=== PATIENT | male | born 1945 | race Caucasian/White ===

== ENCOUNTER 2017-05-18 16:09 | Inpatient (IN) | payer MEDICARE, OTHER ==
[~2017-05-18] VITALS: Ht 177.8 cm; Wt 178.0 kg
[2017-05-18 16:35] VITALS: BP 141/67; PULSE 129; RESP 18; TEMP 98.4; O2SAT 96
[2017-05-18 17:34] VITALS: BP 138/70; PULSE 119; RESP 20; O2SAT 93
[2017-05-18] MEDS ORDERED: SODIUM CHLOR 0.9% 1000 ML INJ 1,000 ML IV SCH (18:11)
[2017-05-18] MEDS ORDERED: CEPH-459 PO (18:39)
[2017-05-18 18:40] LABS: HEMATOCRIT 38.5 % (39.0-51.0); HEMO FLAGS DIFF FINAL; MEAN CELL VOLUME 91.6 FL (80.0-100.0); MEAN CORPUSCULAR HEMOGLOBIN 30.7 PG (27.0-34.0); MEAN CORPUSCULAR HGB CONC 33.5 % (32.0-36.0); PLATELET COUNT 189 TH/MM3 (150-450); RED CELL DISTRIBUTION WIDTH 14.6 % (11.6-17.2); WHITE BLOOD COUNT 12.6 TH/MM3 (4.0-11.0)
--- NOTE | 2017-05-18 18:40 | PD ---
HPI Chief Complaint: General Weakness Time Seen by Provider: 18:00 Travel History International Travel<30 days: No Contact w/Intl Traveler<30days: No Traveled to known affect area: No History of Present Illness HPI 72-year-old male came to the emergency room with history of fall at 1 AM this morning. Patient says he was to the bathroom with his walker when it caught in the rug and he fell forward. He hit his forehead and had a laceration.. Patient refuses any loss of consciousness. His son saw him this morning and was concerned and brought him to the emergency room. Patient is fully awake and answering questions appropriately he's not in any severe pain he said. [facility] Past Medical History Narrative Medical List of his past medical, surgical, social and family history is reviewed from the nursing note. Medical History: Denies Significant Hx Tetanus Vaccination: Unknown Influenza Vaccination: No (UNKNOWN ) Past Surgical History Surgical History: No Previous Surgery Social History Alcohol Use: No Tobacco Use: Yes (PT STATES HE SMOKES A PIPE) Substance Use: No Allergies-Medications (Allergen,Severity, Reaction): Coded Allergies: No Known Allergies (Unverified , 05/18/17) Comments No known drug allergies Reported Meds & Prescriptions Reported Meds & Active Scripts Active Narrative Medication List of his home medications reviewed from the nursing note. Review of Systems Except as stated in HPI: all other systems reviewed are Neg Physical Exam Narrative GENERAL: Awake, alert, elderly, no obvious distress SKIN: Focused skin assessment warm/dry. 2.5 cm laceration all over the medial aspect of his left eyebrow. HEAD: Atraumatic. Normocephalic. EYES: Pupils equal and round. No scleral icterus. No injection or drainage. Left periorbital ecchymosis ENT: No nasal bleeding or discharge. Mucous membranes pink and moist. NECK: Trachea midline. No JVD. CARDIOVASCULAR: Regular rate and rhythm. No murmur appreciated. RESPIRATORY: No accessory muscle use. Clear to auscultation. Breath sounds equal bilaterally. GASTROINTESTINAL: Abdomen soft, non-tender, nondistended. Hepatic and splenic margins not palpable. MUSCULOSKELETAL: No obvious deformities. No clubbing. No cyanosis. No edema. NEUROLOGICAL: Awake and alert. No obvious cranial nerve deficits. Motor grossly within normal limits. Normal speech. PSYCHIATRIC: Appropriate mood and affect; insight and judgment normal. Data Data Last Documented VS Vital Signs Date Time Temp Pulse Resp B/P Pulse Ox O2 Delivery O2 Flow Rate FiO2 05/18/17 18:56 108 24 151/68 97 Room Air 05/18/17 16:35 98.4 Orders Electrocardiogram (05/18/17 18:11) Complete Blood Count With Diff (05/18/17 18:11) Comprehensive Metabolic Panel (05/18/17 18:11) Creatine Kinase (Cpk) (05/18/17 18:11) Ckmb (Isoenzyme) Profile (05/18/17 18:11) Troponin I (05/18/17 18:11) Urinalysis - C+S If Indicated (05/18/17 18:11) Magnesium (Mg) (05/18/17 18:11) Thyroid Stimulating Hormone (05/18/17 18:11) Chest, Single Ap (05/18/17 18:11) Ct Brain W/O Iv Contrast(Rout) (05/18/17 18:11) Iv Access Insert/Monitor (05/18/17 18:11) Ecg Monitoring (05/18/17 18:11) Oximetry (05/18/17 18:11) Drug Screen, Random Urine (05/18/17 18:11) Alcohol (Ethanol) (05/18/17 18:11) Sodium Chlor 0.9% 1000 Ml Inj (Ns 1000 M (05/18/17 18:11) Lactic Acid (05/18/17 18:57) CKMB (05/18/17 17:50) CKMB% (05/18/17 17:50) Ceftriaxone Inj (Rocephin Inj) (05/18/17 19:45) Azithromycin Inj (Zithromax Inj) (05/18/17 19:45) Vital Signs (Adult) Q4H (05/18/17 20:25) Neuro Checks Q4H (05/18/17 20:25) Activity Oob With Assistance (05/18/17 20:25) Blurb Writer / Telemetry .CONTINUOUS (05/18/17 20:25) Sodium Chloride 0.9% Flush (Ns Flush) (05/18/17 20:30) Sodium Chloride 0.9% Flush (Ns Flush) (05/18/17 21:00) Complete Blood Count With Diff (05/19/17 06:00) Creatine Kinase (Cpk) (05/18/17 23:50) Creatine Kinase (Cpk) (05/19/17 05:50) Troponin I (05/18/17 23:50) Troponin I (05/19/17 05:50) Pt Request For Service (05/18/17 20:25) Case Management Consult (05/18/17 20:25) Naloxone Inj (Narcan Inj) (05/18/17 20:30) Us Carotid Arteries Comp Bilat (05/18/17 ) Ct Pulmonary Angiogram (05/18/17 ) Admit Order (Ed Use Only) (05/18/17 20:28) Echo 2d Comp With Doppler (05/19/17 ) Labs Laboratory Tests Test 05/18/17 05/18/17 17:50 19:15 White Blood Count 12.6 TH/MM3 Red Blood Count 4.20 MIL/MM3 Hemoglobin 12.9 GM/DL Hematocrit 38.5 % Mean Corpuscular Volume 91.6 FL Mean Corpuscular Hemoglobin 30.7 PG Mean Corpuscular Hemoglobin 33.5 % Concent Red Cell Distribution Width 14.6 % Platelet Count 189 TH/MM3 Mean Platelet Volume 9.7 FL Neutrophils (%) (Auto) 85.3 % Lymphocytes (%) (Auto) 6.4 % Monocytes (%) (Auto) 7.3 % Eosinophils (%) (Auto) 0.1 % Basophils (%) (Auto) 0.9 % Neutrophils # (Auto) 10.8 TH/MM3 Lymphocytes # (Auto) 0.8 TH/MM3 Monocytes # (Auto) 0.9 TH/MM3 Eosinophils # (Auto) 0.0 TH/MM3 Basophils # (Auto) 0.1 TH/MM3 CBC Comment DIFF FINAL Differential Comment Sodium Level 137 MEQ/L Potassium Level 4.3 MEQ/L Chloride Level 105 MEQ/L Carbon Dioxide Level 21.5 MEQ/L Anion Gap 11 MEQ/L Blood Urea Nitrogen 14 MG/DL Creatinine 1.29 MG/DL Estimat Glomerular Filtration 54 ML/MIN Rate Random Glucose 150 MG/DL Calcium Level 8.0 MG/DL Magnesium Level 1.8 MG/DL Total Bilirubin 0.6 MG/DL Aspartate Amino Transf 23 U/L (AST/SGOT) Alanine Aminotransferase 11 U/L (ALT/SGPT) Alkaline Phosphatase 66 U/L Total Creatine Kinase 207 U/L Creatine Kinase MB 0.6 NG/ML Troponin I 0.06 NG/ML Total Protein 6.6 GM/DL Albumin 2.7 GM/DL Thyroid Stimulating Hormone 1.050 uIU/ML 3rd Gen Ethyl Alcohol Level LESS THAN 3 MG/DL Lactic Acid Level 1.1 mmol/L MDM Medical Decision Making Medical Screen Exam Complete: Yes Emergency Medical Condition: Yes Medical Record Reviewed: Yes Differential Diagnosis Head injury, facial laceration Narrative Course 6:37 PM patient told me that he is updated for tetanus. My PA suture the facial laceration. Patient was given by mouth Keflex. Head CT is negative. I will discharge him home. Procedures EKG Prior to Arrival: No Diagnosis Primary Impression: Head injury Qualified Code: S09.90XA - Head injury, initial encounter Additional Impression: Facial laceration Qualified Code: S01.81XA - Facial laceration, initial encounter Referrals: Primary Care Physician Additional Instructions: Please return to the ER if the condition worsens or any other new concerns. Otherwise return to the ER in 7-10 days to get the sutures taken out. He can also go to your primary care doctor to have those taken out. Take the medication as per the prescription direction. Keep the wound clean and dry for next 48 hours. Med/Other Pt SpecificInfo: Prescription(s) given Disposition: 01 DISCHARGE HOME Condition: Stable Dot Osorio MD May 18, 2017 18:39
[2017-05-18 18:41] LABS: AUTOMATED NEUTROPHIL # 10.8 TH/MM3 (1.8-7.7); BASOPHIL # 0.1 TH/MM3 (0-0.2); BASOPHIL % 0.9 % (0.0-2.0); EOSINOPHIL % 0.1 % (0.0-4.0); LYMPH % 6.4 % (9.0-44.0); LYMPHOCYTE # 0.8 TH/MM3 (1.0-4.8); MONO % 7.3 % (0.0-8.0); NEUT % 85.3 % (16.0-70.0)
--- NOTE | 2017-05-18 18:51 | RADRPT ---
EXAM DATE/TIME: 05/18/2017 18:37 [facility] COMPARISON: No previous studies available for comparison. INDICATIONS : Patient fainted and hit head. RADIATION DOSE: 56.77 CTDIvol (mGy) MEDICAL HISTORY : None SURGICAL HISTORY : Non-responsive. ENCOUNTER: Initial ACUITY: 1 day PAIN SCALE: 1/10 LOCATION: Bilateral cranial TECHNIQUE: Multiple contiguous axial images were obtained of the head. Using automated exposure control and adj ustment of the mA and/or kV according to patient size, radiation dose was kept as low as reasonably a chievable to obtain optimal diagnostic quality images. DICOM format image data is available electro nically for review and comparison. FINDINGS: Remote right cerebellar lacunar infarct. There is patchy hypodensity in the periventricular white mat ter and basal ganglia most consistent with chronic microvascular ischemic disease. There is no eviden ce of acute intracranial hemorrhage, mass or acute infarct. No fractures. CONCLUSION: No acute disease. Enrrique Summers MD on May 18, 2017 at 18:49 Board Certified Radiologist. This report was verified electronically.
[2017-05-18 18:56] VITALS: BP 151/68; PULSE 108; RESP 24; O2SAT 97
[2017-05-18 18:59] LABS: ALT (GPT) 11 U/L (12-78)
[2017-05-18 19:04] LABS: ANION GAP 11 MEQ/L (5-15)
--- NOTE | 2017-05-18 19:07 | RADRPT ---
EXAM DATE/TIME: 05/18/2017 18:47 [facility] COMPARISON: No previous studies available for comparison. INDICATIONS : Chest pain, possible heat stroke. MEDICAL HISTORY : None. SURGICAL HISTORY : None. ENCOUNTER: Initial ACUITY: 1 day PAIN SCORE: Non-responsive. LOCATION: Bilateral chest FINDINGS: Cardiomegaly. Left lung is clear. There is abnormal opacity overlying the right lower lobe suspect fo r consolidation. CONCLUSION: Right lung base consolidation, mass felt less likely. Followup recommended after appropriate clinical therapy. Enrrique Summers MD on May 18, 2017 at 19:05 Board Certified Radiologist. This report was verified electronically.
[2017-05-18 19:20] LABS: ALKALINE PHOSPHATASE 66 U/L (45-117); AST (GOT) 23 U/L (15-37); BICARBONATE 21.5 MEQ/L (21.0-32.0); BLOOD UREA NITROGEN 14 MG/DL (7-18); CHLORIDE 105 MEQ/L (98-107); CREATINE KINASE 207 U/L (39-308); GLOMERULAR FILTRATION RATE 54 ML/MIN (>89); MAGNESIUM 1.8 MG/DL (1.5-2.5); POTASSIUM 4.3 MEQ/L (3.5-5.1); SODIUM (NA) 137 MEQ/L (136-145); TOTAL BILIRUBIN ADULT 0.6 MG/DL (0.2-1.0)
--- NOTE | 2017-05-18 19:29 | PD ---
HPI Chief Complaint: General Weakness Time Seen by Provider: 19:25 Travel History International Travel<30 days: No Contact w/Intl Traveler<30days: No Traveled to known affect area: No History of Present Illness HPI 72-year-old male that presents to the ED for evaluation of possible heat stroke. Patient was brought here by ambulance. Patient is not quite sure what happened but per patient he feels like his right leg had a muscle spasm and he felt. Per patient he doesn't remember what happened but he was woken up by a bystander. Ambulance showed up and patient was sitting on a pool of his sweat. Patient denies any chest pain or shortness of breath. He denies any pain at all at this time. He apparently was altered at the time but not anymore. He answers some questions about properly. He is deaf. He does not remember being on the floor. He denies any extremity is activity today. No abdominal pain. No nausea or vomiting. No bowel movement or urinary issues. At this time he denies any pain of any kind. History is somewhat limited because patient does appear to be somewhat of a poor historian. He denies any medical issues. [facility] Past Medical History Medical History: Denies Significant Hx Tetanus Vaccination: Unknown Influenza Vaccination: No (UNKNOWN ) Past Surgical History Surgical History: No Previous Surgery Social History Alcohol Use: No Tobacco Use: Yes (PT STATES HE SMOKES A PIPE) Substance Use: No Allergies-Medications (Allergen,Severity, Reaction): Coded Allergies: No Known Allergies (Unverified , 05/18/17) Reported Meds & Prescriptions Reported Meds & Active Scripts Active Keflex (Cephalexin) 250 Mg Cap 250 Mg PO TID Review of Systems ROS Limitations: Poor Historian Except as stated in HPI: all other systems reviewed are Neg Physical Exam Exam Limitations: Poor Historian Narrative GENERAL: SKIN: Warm and dry. HEAD: Atraumatic. Normocephalic. EYES: Pupils equal and round. No scleral icterus. No injection or drainage. ENT: No nasal bleeding or discharge. Mucous membranes pink and moist. NECK: Trachea midline. No JVD. CARDIOVASCULAR: Regular rate and rhythm. No murmurs, S3, S4. RESPIRATORY: No accessory muscle use. Clear to auscultation. Breath sounds equal bilaterally. GASTROINTESTINAL: Abdomen soft, non-tender, nondistended. Hepatic and splenic margins not palpable. MUSCULOSKELETAL: Extremities without clubbing, cyanosis, or edema. No obvious deformities. Full range of motion of the upper and lower extremities bilaterally. 2+ pulses bilaterally. NEUROLOGICAL: Awake and alert and oriented 4. No obvious cranial nerve deficits. Motor grossly within normal limits. Five out of 5 muscle strength in the arms and legs. Normal speech. PSYCHIATRIC: Appropriate mood and affect; insight and judgment normal. Data Data Last Documented VS Vital Signs Date Time Temp Pulse Resp B/P Pulse Ox O2 Delivery O2 Flow Rate FiO2 05/18/17 18:56 108 24 151/68 97 Room Air 05/18/17 16:35 98.4 Orders Electrocardiogram (05/18/17 18:11) Complete Blood Count With Diff (05/18/17 18:11) Comprehensive Metabolic Panel (05/18/17 18:11) Creatine Kinase (Cpk) (05/18/17 18:11) Ckmb (Isoenzyme) Profile (05/18/17 18:11) Troponin I (05/18/17 18:11) Urinalysis - C+S If Indicated (05/18/17 18:11) Magnesium (Mg) (05/18/17 18:11) Thyroid Stimulating Hormone (05/18/17 18:11) Chest, Single Ap (05/18/17 18:11) Ct Brain W/O Iv Contrast(Rout) (05/18/17 18:11) Iv Access Insert/Monitor (05/18/17 18:11) Ecg Monitoring (05/18/17 18:11) Oximetry (05/18/17 18:11) Drug Screen, Random Urine (05/18/17 18:11) Alcohol (Ethanol) (05/18/17 18:11) Sodium Chlor 0.9% 1000 Ml Inj (Ns 1000 M (05/18/17 18:11) Lactic Acid (05/18/17 18:57) CKMB (05/18/17 17:50) CKMB% (05/18/17 17:50) Ceftriaxone Inj (Rocephin Inj) (05/18/17 19:45) Azithromycin Inj (Zithromax Inj) (05/18/17 19:45) Labs Laboratory Tests Test 05/18/17 05/18/17 17:50 19:15 White Blood Count 12.6 TH/MM3 Red Blood Count 4.20 MIL/MM3 Hemoglobin 12.9 GM/DL Hematocrit 38.5 % Mean Corpuscular Volume 91.6 FL Mean Corpuscular Hemoglobin 30.7 PG Mean Corpuscular Hemoglobin 33.5 % Concent Red Cell Distribution Width 14.6 % Platelet Count 189 TH/MM3 Mean Platelet Volume 9.7 FL Neutrophils (%) (Auto) 85.3 % Lymphocytes (%) (Auto) 6.4 % Monocytes (%) (Auto) 7.3 % Eosinophils (%) (Auto) 0.1 % Basophils (%) (Auto) 0.9 % Neutrophils # (Auto) 10.8 TH/MM3 Lymphocytes # (Auto) 0.8 TH/MM3 Monocytes # (Auto) 0.9 TH/MM3 Eosinophils # (Auto) 0.0 TH/MM3 Basophils # (Auto) 0.1 TH/MM3 CBC Comment DIFF FINAL Differential Comment Sodium Level 137 MEQ/L Potassium Level 4.3 MEQ/L Chloride Level 105 MEQ/L Carbon Dioxide Level 21.5 MEQ/L Anion Gap 11 MEQ/L Blood Urea Nitrogen 14 MG/DL Creatinine 1.29 MG/DL Estimat Glomerular Filtration 54 ML/MIN Rate Random Glucose 150 MG/DL Calcium Level 8.0 MG/DL Magnesium Level 1.8 MG/DL Total Bilirubin 0.6 MG/DL Aspartate Amino Transf 23 U/L (AST/SGOT) Alanine Aminotransferase 11 U/L (ALT/SGPT) Alkaline Phosphatase 66 U/L Total Creatine Kinase 207 U/L Creatine Kinase MB 0.6 NG/ML Troponin I 0.06 NG/ML Total Protein 6.6 GM/DL Albumin 2.7 GM/DL Thyroid Stimulating Hormone 1.050 uIU/ML 3rd Gen Ethyl Alcohol Level LESS THAN 3 MG/DL Lactic Acid Level 1.1 mmol/L MDM Medical Decision Making Medical Screen Exam Complete: Yes Emergency Medical Condition: Yes Medical Record Reviewed: Yes Interpretation(s) CBC & BMP Diagram 05/18/17 17:50 LFTS WNL UA negative Lipase WNL Last Impressions Head CT 05/18/171810 Signed Impressions: Service Date/Time: Thursday, May 18, 2017 18:37 - CONCLUSION: No acute disease. Enrrique Summers MD Chest X-Ray 05/18/171810 Signed Impressions: Service Date/Time: Thursday, May 18, 2017 18:47 - CONCLUSION: Right lung base consolidation, mass felt less likely. Followup recommended after appropriate clinical therapy. Enrrique Summers MD Differential Diagnosis Altered mental status versus dehydration versus heat stroke versus pneumonia versus sepsis versus normal exam Narrative Course 72-year-old male that presents to the ED for evaluation of possible heat stroke. Patient was properly examined and was found to have signs and symptoms very consistent what appears to be dehydration and altered mental status. Labs and imaging were done. Patient at this time appears to be less alter and he seems to answer some questions a properly but he does appear to be somewhat of a poor historian. Questionable how long He was "out". At this time I recommend labs and imaging. Patient agrees with this. Patient was given 2 L of fluid before being seen by me. Labs and imaging ordered and showed pneumonia , new onset a fib, leukocytosis and positive troponin. Case was discussed in my attending Dr. Echeverria agrees to admission. Patient will be admitted for further evaluation of alteration as well as pneumonia and positive troponin and new onset A. fib. Case discussed with Dr. Nathan who agrees to admission. Sepsis Criteria SIRS Criteria (2 or more): Heart rate over 90, WBC > 51994, < 4000 or > 10% bands Sepsis Criteria (SIRS+source): Infect source susp/known Criteria Outcome: Meets sepsis criteria Diagnosis Primary Impression: Altered mental status Qualified Code: R41.82 - Altered mental status, unspecified altered mental status type Additional Impressions: Pneumonia Qualified Code: J18.1 - Pneumonia of right lower lobe due to infectious organism Troponin level elevated Atrial fibrillation Qualified Code: I48.91 - Atrial fibrillation, unspecified type Sepsis Qualified Code: A41.9 - Sepsis, due to unspecified organism Admitting Information Admitting Physician Requests: Admit Referrals: Primary Care Physician Scripts Cephalexin (Keflex)250 Mg [id number] Mg PO TID #7 CAP Ref 0 Prov:Dot Osorio MD 05/18/17 Loyd Olvera May 18, 2017 19:28
[2017-05-18 19:33] LABS: CKMB 0.6 NG/ML (0.5-3.6)
[2017-05-18] MEDS ORDERED: AZITHROMYCIN INJ 500 MG in SODIUM CHLOR 0.9% 250 ML INJ 250 ML IV ONE (19:45)
[2017-05-18] MEDS ORDERED: cefTRIAXone INJ 1,000 MG in SODIUM CHLORIDE 0.9% INJ 100 ML IV ONE (19:45)
[2017-05-18] MEDS ORDERED: NALOXONE HCL 0.4 MG/ML AMP IV PRN (20:30)
[2017-05-18] MEDS ORDERED: SODIUM CHLORIDE 0.9% FLUSH 10 ML FLUSH IV FLUSH PRN (20:30)
--- NOTE | 2017-05-18 21:25 | RADRPT ---
EXAM DATE/TIME: 05/18/2017 20:44 [facility] COMPARISON: No previous studies available for comparison. INDICATIONS : Syncope. MEDICAL HISTORY : Syncope. Smoker. SURGICAL HISTORY : None. ENCOUNTER: Initial ACUITY: 1 day PAIN SCORE: 0/10 LOCATION: Bilateral neck PEAK SYSTOLIC VELOCITIES (cm/sec): ICA/CCA RATIO: Right: 1.0 Left: 0.9 ICA: Right: 95.2 Left: 82.8 CCA: Right: 90.8 Left: 96.3 ECA: Right: 116.3 Left: 134.9 VERTEBRAL: Right: 47.8 antegrade Left: 42.7 antegrade Elevated flow velocities and ICA/CCA ratios have been found to correlate with increased degrees of vessel stenosis, calculated as percentage of diameter relative to a normal segment of distal ICA/CCA FINDINGS: RIGHT CAROTID: No significant stenosis is visualized. The waveforms are within normal limits. LEFT CAROTID: No significant stenosis is visualized. The waveforms are within normal limits. VERTEBRAL ARTERIES: Antegrade flow is seen in both vertebral arteries. MISCELLANEOUS: None. CONCLUSION: 1. No evidence for hemodynamically significant stenosis. Minimal plaque deposition left greater than right. Enrrique Summers MD on May 18, 2017 at 21:24 Board Certified Radiologist. This report was verified electronically.
[2017-05-18 21:29] LABS: BLOOD, URINE SMALL (NEG); COMMENT (UR) CULT NOT INDICATED; CULTURE IF INDICATED CULT NOT INDICATED; GLUCOSE,URINE NEG (NEG); KETONE, URINE NEG (NEG); NITRITE,URINE NEG (NEG); SQUAMOUS EPITHELIAL CELL URINE <1 /hpf (0-5); URINE COLOR YELLOW (YELLW/STRAW)
[2017-05-18 21:37] LABS: AMPHETAMINE, URINE NEG (NEG); BARBITURATES, URINE NEG (NEG); COCAINE, URINE NEG (NEG)
[2017-05-18] MEDS ORDERED: IOHEXOL 350 MG/ML 10 ML VIAL (for RAD DIAG) IV ONE (21:45)
--- NOTE | 2017-05-18 21:59 | RADRPT ---
EXAM DATE/TIME: 05/18/2017 21:35 [facility] COMPARISON: CHEST SINGLE AP, May 18, 2017, 18:47. INDICATIONS : Shortness of breath. IV CONTRAST: 75 cc Omnipaque 350 (iohexol) IV RADIATION DOSE: 39.20 CTDIvol (mGy) MEDICAL HISTORY : None SURGICAL HISTORY : None. ENCOUNTER: Initial ACUITY: 1 day PAIN SCALE: 0/10 LOCATION: Bilateral chest TECHNIQUE: Volumetric scanning of the chest was performed using a pulmonary embolism protocol MIP images were re constructed. Using automated exposure control and adjustment of the mA and/or kV according to patien t size, radiation dose was kept as low as reasonably achievable to obtain optimal diagnostic quality images. DICOM format image data is available electronically for review and comparison. Follow-up recommendations for incidentally detected pulmonary nodules are based at a minimum on nodul e size and patient risk factors according to Fleischner Society Guidelines. FINDINGS: There is respiratory motion artifact. Right lower lobe consolidation is identified. Left lung is stan r. There is right hilar adenopathy measuring 1.3 x 2.5 cm in AP and transverse dimension. There is a hypodense mass at the upper pole of the right kidney measured 4.4 cm and 2 Hounsfield units character istic of his chest. No evidence of pulmonary embolus. Coronary artery calcification. There are degene rative changes of the spine. CONCLUSION: 1. Right lower lobe pneumonia with right hilar adenopathy. 2. Right renal cyst. 3. Coronary calcification. 4. No evidence for pulmonary embolus Enrrique Summers MD on May 18, 2017 at 21:55 Board Certified Radiologist. This report was verified electronically.
--- NOTE | 2017-05-18 22:14 | HHI.HP ---
[facility] No Primary Care Physician Admission Diagnosis altered mental status, CAP, a. fib, positive trop Diagnoses: Chief Complaint: I don't know what happened Travel History International Travel<30 Days: No Contact w/Intl Traveler <30 Da: No Traveled to Known Affected Are: No History of Present Illness History from patient, ER PA communication, and review of medical records. Patient reported that he wants to [place] today and he took a bus back home and as he got out of the bus and walked on the street, he somehow fell and passed out. He denies any premonitory symptoms prior to the event. Specifically, he denies any chest pain/palpitations/shortness of breath/dizziness/focal weakness/visual disturbance. He stated that he fell onto his buttock. He stated he may have passed out a few seconds he. He is not sure. However he does note that he had severe pain in his left hip area which was making him hard to get up. Therefore a bystander saw him and called 911. Patient still complains about pain in his this left hip. Apart from that, he denies any pain anywhere. On further questioning, patient also denies any recent fevers/nausea/vomiting/ diarrhea/urinary burning or pain on urination. He denies any hematemesis/hematochezia/melena/hematuria. Denies any blood in his stool or urine. Patient denies any previous medical history. He takes only one medicine for which he thinks is probably Excedrin [id number] which is 650 mg at [facility] for arthritis. He denies any previous surgical history. He states he lives alone. Usually does not use a walker to walk. No longer driving. Patient is quite obese as well. In the emergency room, patient's workup revealed leukocytosis with left shift, chest x-ray evidence of pneumonia, mild troponin elevation of 0.06. Again, patient denies any cough or sputum production. EMS report also stated that patient had fever of 102. Patient's EKG was also read as A. fib with heart rate around 108. However on review of his EKG, P waves are evident. Thus sinus tachycardia. ER triage note states that EMS was reporting patient is altered and laying in a pool of his own sweat when they arrived. He was given 1 L normal saline bolus by EMS. He was AAO 3 upon arrival to ER per triage notes. Triage notes also states that patient was complaining of leg cramp and that his leg giving out prior to the fall. Review of Systems Except as stated in HPI: all other systems reviewed are Neg Past Family Social History Past Medical History None part from arthritis per patient none apart from arthritis per patient Past Surgical History None per patient Reported Medications None apart from [id number] aspirin or Excedrin per patient Allergies: Coded Allergies: No Known Allergies (Unverified , 05/18/17) Family History Denies family history of any medical issues. He stated they are all at this time and that they from old age Social History still smokes a pipe but quit cigarettes about 10-15yrs ago used to drink etoh heavily after work - but quit 6 yrs ago ' no drugs lives by himself does not use a walker at home no relatives around Physical Exam Vital Signs Vital Signs Date Time Temp Pulse Resp B/P Pulse Ox O2 Delivery O2 Flow Rate FiO2 05/18/17 18:56 108 24 151/68 97 Room Air 05/18/17 17:34 119 20 138/70 93 Room Air 05/18/17 17:00 129 18 96 Room Air 05/18/17 16:35 98.4 129 18 141/67 96 Physical Exam GENERAL: This is a well-nourished, well-developed patient, in no apparent distress. Morbidly obese. Somewhat disheveled with dirt on bilateral feet SKIN: No obvious skin ulcerations or decubiti. HEAD: Atraumatic. Normocephalic. No temporal or scalp tenderness. EYE No scleral icterus. No injection or drainage. ENT: Nose without bleeding, purulent drainage or septal hematoma. Airway patent. Tongue rolling. Patient denies being on any antipsychotics. NECK: Trachea midline. No JVD Supple, nontender, no meningeal signs. CARDIOVASCULAR: Regular rate and rhythm without murmurs, gallops, or rubs. RESPIRATORY: Audible mild expiratory wheezing without stethoscope. GASTROINTESTINAL: Abdomen soft, non-tender, nondistended. No guarding. MUSCULOSKELETAL: Extremities without clubbing, cyanosis, or edema. Left lower extremity with difficulty moving and pain on palpation at left hip and pelvis area. No calf tenderness. NEUROLOGICAL: Awake and alert. Motor and sensory grossly within normal limits apart from pain at left hip. Normal speech. Laboratory Laboratory Tests Test 05/18/17 05/18/17 05/18/17 17:50 19:15 21:16 White Blood Count 12.6 Red Blood Count 4.20 Hemoglobin 12.9 Hematocrit 38.5 Mean Corpuscular Volume 91.6 Mean Corpuscular Hemoglobin 30.7 Mean Corpuscular Hemoglobin 33.5 Concent Red Cell Distribution Width 14.6 Platelet Count 189 Mean Platelet Volume 9.7 Neutrophils (%) (Auto) 85.3 Lymphocytes (%) (Auto) 6.4 Monocytes (%) (Auto) 7.3 Eosinophils (%) (Auto) 0.1 Basophils (%) (Auto) 0.9 Neutrophils # (Auto) 10.8 Lymphocytes # (Auto) 0.8 Monocytes # (Auto) 0.9 Eosinophils # (Auto) 0.0 Basophils # (Auto) 0.1 CBC Comment DIFF FINAL Differential Comment Sodium Level 137 Potassium Level 4.3 Chloride Level 105 Carbon Dioxide Level 21.5 Anion Gap 11 Blood Urea Nitrogen 14 Creatinine 1.29 Estimat Glomerular Filtration 54 Rate Random Glucose 150 Calcium Level 8.0 Magnesium Level 1.8 Total Bilirubin 0.6 Aspartate Amino Transf 23 (AST/SGOT) Alanine Aminotransferase 11 (ALT/SGPT) Alkaline Phosphatase 66 Total Creatine Kinase 207 Creatine Kinase MB 0.6 Troponin I 0.06 Total Protein 6.6 Albumin 2.7 Thyroid Stimulating Hormone 1.050 3rd Gen Ethyl Alcohol Level LESS THAN 3 Lactic Acid Level 1.1 Urine Color YELLOW Urine Turbidity CLEAR Urine pH 6.0 Urine Specific [place] 1.021 Urine Protein 30 Urine Glucose (UA) NEG Urine Ketones NEG Urine Occult Blood SMALL Urine Nitrite NEG Urine Bilirubin NEG Urine Urobilinogen LESS THAN 2.0 Urine Leukocyte Esterase NEG Urine RBC LESS THAN 1 Urine WBC 1 Urine Squamous Epithelial <1 Cells Microscopic Urinalysis Comment CULT NOT INDICATED Urine Opiates Screen NEG Urine Barbiturates Screen NEG Urine Amphetamines Screen NEG Urine Benzodiazepines Screen NEG Urine Cocaine Screen NEG Urine Cannabinoids Screen NEG Result Diagram: 05/18/17 17505/18/17 175 Imaging Last [address] 05/18/17 1811 Signed Impressions: Service Date/Time: Thursday, May 18, 2017 18:37 - CONCLUSION: No acute disease. nErrique Summers MD Chest X-Ray 05/18/17 1811 Signed Impressions: Service Date/Time: Thursday, May 18, 2017 18:47 - CONCLUSION: Right lung base consolidation, mass felt less likely. Followup recommended after appropriate clinical therapy. Enrrique Summers MD Assessment and Plan Assessment and Plan Impression: Syncope and fall Left hip pain post fall Pneumoniaright lower lobe Sinus tachycardiasecondary to infection Mild elevated troponinetiology unclear. Patient denies chest pains or tightness. We'll trend and to rule out ACS. Most likely secondary to dehydration/nonspecific Leukocytosis with left shift Morbid obesity Prior history of tobacco abusewith expiratory wheezings on examlikely underlying COPD Plan: Patient received Rocephin and azithromycin in ER. Will continue that for now. Monitor for clinical response. Start patient on nebulizers when necessary. Echocardiogram in a.m. Telemetry monitoring. Carotid sono. Results noted. No hemodynamically significant stenosis. Chest x-ray does personally reviewed. No evidence of pneumothorax/pleural effusions. Right lower lobe infiltrate evident. Head CTpersonally reviewed. No evidence of acute infarct/mass/hemorrhage. CT pulmonary angiogram personally reviewed. No evidence of pulmonary embolism. Right lower lobe infiltrate with adenopathy. We'll obtain x-ray of left hip and pelvis to rule out fractures. Physical therapy consult in a.m. Case management consult. DVT prophylaxiswith Lovenox. GI prophylaxis on pantoprazole. Discussed Condition With patient, ER PA, nursing staff Isai Nathan MD May 18, 2017 22:14
[2017-05-18] MEDS ORDERED: RESP: IPRATROPIUM 0.5 MG/2.5 ML NEB NEB PRN (22:15)
[2017-05-18 22:24] VITALS: BP 132/72; PULSE 68; RESP 18; TEMP 98.1; O2SAT 97
--- NOTE | 2017-05-18 22:48 | RADRPT ---
EXAM DATE/TIME: 05/18/2017 22:39 [facility] COMPARISON: No previous studies available for comparison. INDICATIONS : Left hip pain after fall. MEDICAL HISTORY : None. SURGICAL HISTORY : None. ENCOUNTER: Initial ACUITY: 1 day PAIN SCORE: Non-responsive. LOCATION: Left hip. FINDINGS: There is contrast in the urinary bladder and distal ureters. No evidence for hip fracture. Bone densi ty is normal. CONCLUSION: No acute disease. Enrrique Summers MD on May 18, 2017 at 22:47 Board Certified Radiologist. This report was verified electronically.
[2017-05-18] MEDS: SODIUM CHLORIDE 0.9% FLUSH 10 ML FLUSH IV FLUSH SCH (22:57)
[2017-05-19] VITALS (11 sets, daily range): BP systolic 131–156; BP diastolic 72–80; PULSE 67–99; RESP 14–20; TEMP 97.9–98.5; O2SAT 97–99
[2017-05-19 06:44] LABS: BICARBONATE 21.3 MEQ/L (21.0-32.0); POTASSIUM 3.9 MEQ/L (3.5-5.1)
[2017-05-19 06:57] LABS: AUTOMATED NEUTROPHIL # 7.7 TH/MM3 (1.8-7.7); BASOPHIL # 0.1 TH/MM3 (0-0.2); BASOPHIL % 0.8 % (0.0-2.0); EOSINOPHIL # 0.1 TH/MM3 (0-0.4); EOSINOPHIL % 0.7 % (0.0-4.0); HEMATOCRIT 37.7 % (39.0-51.0); HEMO FLAGS DIFF FINAL; LYMPH % 14.9 % (9.0-44.0); LYMPHOCYTE # 1.6 TH/MM3 (1.0-4.8); MEAN CELL VOLUME 92.4 FL (80.0-100.0); MEAN CORPUSCULAR HEMOGLOBIN 31.6 PG (27.0-34.0); MEAN CORPUSCULAR HGB CONC 34.2 % (32.0-36.0); NEUT % 72.6 % (16.0-70.0); PLATELET COUNT 181 TH/MM3 (150-450); RED BLOOD COUNT 4.09 MIL/MM3 (4.50-5.90); RED CELL DISTRIBUTION WIDTH 14.9 % (11.6-17.2); WHITE BLOOD COUNT 10.7 TH/MM3 (4.0-11.0)
[2017-05-19] MEDS ORDERED: ACETAMINOPHEN 325 MG TAB PO PRN (07:30)
--- NOTE | 2017-05-19 08:54 | HHI.PR ---
Subjective Remarks Follow-up for syncope and fall. The patient is hard of hearing. He did pass out and fall yesterday, doesn't recall much about the episode. He states he has been feeling well lately. He denies any chest pain or shortness of breath. He denies any cough or recent illness. He denies any problems swallowing. He states he had some left hip pain after the fall, but that has resolved. He states he feels well at this time and is asking when he can go home. He does smoke a pipe. Objective Vitals Vital Signs Date Time Temp Pulse Resp B/P Pulse Ox O2 Delivery O2 Flow Rate FiO2 05/19/17 08:29 98.5 89 18 146/74 99 05/19/17 04:39 98.1 67 18 131/74 97 05/19/17 03:44 99 05/19/17 00:33 85 05/19/17 00:33 85 05/18/17 22:24 98.1 68 18 132/72 97 05/18/17 18:56 108 24 151/68 97 Room Air 05/18/17 17:34 119 20 138/70 93 Room Air 05/18/17 17:00 129 18 96 Room Air 05/18/17 16:35 98.4 129 18 141/67 96 Result Diagram: 05/19/17 0502 05/19/17 0502 Other Results Laboratory Tests Test 05/18/17 05/18/17 05/18/17 05/19/17 17:50 19:15 21:16 05:02 Magnesium Level 1.8 MG/DL Total Bilirubin 0.6 MG/DL Aspartate Amino Transf 23 U/L (AST/SGOT) Alanine Aminotransferase 11 U/L (ALT/SGPT) Alkaline Phosphatase 66 U/L Creatine Kinase MB 0.6 NG/ML Total Protein 6.6 GM/DL Albumin 2.7 GM/DL Thyroid Stimulating Hormone 1.050 uIU/ML 3rd Gen Ethyl Alcohol Level LESS THAN 3 MG/DL Lactic Acid Level 1.1 mmol/L Urine Color YELLOW Urine Turbidity CLEAR Urine pH 6.0 Urine Specific [place] 1.021 Urine Protein 30 mg/dL Urine Glucose (UA) NEG mg/dL Urine Ketones NEG mg/dL Urine Occult Blood SMALL Urine Nitrite NEG Urine Bilirubin NEG Urine Urobilinogen LESS THAN 2.0 MG/DL Urine Leukocyte Esterase NEG Urine RBC LESS THAN 1 /hpf Urine WBC 1 /hpf Urine Squamous Epithelial <1 /hpf Cells Microscopic Urinalysis Comment CULT NOT INDICATED Urine Opiates Screen NEG Urine Barbiturates Screen NEG Urine Amphetamines Screen NEG Urine Benzodiazepines Screen NEG Urine Cocaine Screen NEG Urine Cannabinoids Screen NEG White Blood Count 10.7 TH/MM3 Red Blood Count 4.09 MIL/MM3 Hemoglobin 12.9 GM/DL Hematocrit 37.7 % Mean Corpuscular Volume 92.4 FL Mean Corpuscular Hemoglobin 31.6 PG Mean Corpuscular Hemoglobin 34.2 % Concent Red Cell Distribution Width 14.9 % Platelet Count 181 TH/MM3 Mean Platelet Volume 9.0 FL Neutrophils (%) (Auto) 72.6 % Lymphocytes (%) (Auto) 14.9 % Monocytes (%) (Auto) 11.0 % Eosinophils (%) (Auto) 0.7 % Basophils (%) (Auto) 0.8 % Neutrophils # (Auto) 7.7 TH/MM3 Lymphocytes # (Auto) 1.6 TH/MM3 Monocytes # (Auto) 1.2 TH/MM3 Eosinophils # (Auto) 0.1 TH/MM3 Basophils # (Auto) 0.1 TH/MM3 CBC Comment DIFF FINAL Differential Comment Sodium Level 138 MEQ/L Potassium Level 3.9 MEQ/L Chloride Level 105 MEQ/L Carbon Dioxide Level 21.3 MEQ/L Anion Gap 12 MEQ/L Blood Urea Nitrogen 13 MG/DL Creatinine 1.03 MG/DL Estimat Glomerular Filtration 71 ML/MIN Rate Random Glucose 96 MG/DL Calcium Level 8.3 MG/DL Total Creatine Kinase 262 U/L Troponin I 0.06 NG/ML Imaging Last Impressions Head CT 05/18/171810 Signed Impressions: Service Date/Time: Thursday, May 18, 2017 18:37 - CONCLUSION: No acute disease. Enrrique Summers MD Chest X-Ray 05/18/171810 Signed Impressions: Service Date/Time: Thursday, May 18, 2017 18:47 - CONCLUSION: Right lung base consolidation, mass felt less likely. Followup recommended after appropriate clinical therapy. Enrrique Summers MD Hip and Pelvis X-Ray 05/18/17 0000 Signed Impressions: Service Date/Time: Thursday, May 18, 2017 22:39 - CONCLUSION: No acute disease. Enrrique Summers MD Carotid Artery Ultrasound 05/18/17 0000 Signed Impressions: Service Date/Time: Thursday, May 18, 2017 20:44 - CONCLUSION: 1. No evidence for hemodynamically significant stenosis. Minimal plaque deposition left greater than right. Enrrique Summers MD CT Angiography 05/18/17 0000 Signed Impressions: Service Date/Time: Thursday, May 18, 2017 21:35 - CONCLUSION: 1. Right lower lobe pneumonia with right hilar adenopathy. 2. Right renal cyst. 3. Coronary calcification. 4. No evidence for pulmonary embolus Enrrique Summers MD Objective Remarks GENERAL: Well-developed well-nourished morbidly obese. In no acute distress. Hard of hearing. SKIN: Warm and dry. No lesions noted. HEENT: Normocephalic. Pupils equal and round. Mucous membranes pink and moist. Large tongue. CARDIOVASCULAR: Regular rate and rhythm. No murmur appreciated. RESPIRATORY: No accessory muscle use. Slightly tachypneic. Clear to auscultation. No wheezing. GASTROINTESTINAL: Abdomen soft, non-tender, nondistended. Bowel sounds x4. MUSCULOSKELETAL: No obvious deformities. No clubbing or cyanosis. No edema. NEUROLOGICAL: Awake and alert. No focal neurological deficits. Moves upper and lower extremities spontaneously. Normal speech. PSYCHIATRIC: Appropriate mood and affect; insight and judgment normal. Procedures None Medications and IVs Current Medications Medications (Trade) Dose Ordered Sig/Ana Route Start Time Stop Time Status Last Admin (NS Flush) 2 ml UNSCH PRN IV FLUSH 05/18/17 20:30 (NS Flush) 2 ml BID IV FLUSH 05/18/17 21:00 05/19/17 09:28 Naloxone HCl 0.4 mg 0.4 mg UNSCH PRN IV 05/18/17 20:30 (Zithromax Inj/ NS 250 ml Inj) 250 ml @ 250 mls/hr Q24H IV 05/19/17 20:00 (Lovenox Inj) 40 mg Q24H SQ 05/19/17 09:00 05/19/17 09:27 (Protonix) 40 mg DAILY PO 05/19/17 09:00 05/19/17 09:27 Acetaminophen 650 mg 650 mg Q4H PRN PO 05/19/17 07:30 Azithromycin 500 mg/Sodium Chloride 250 ml @ 250 mls/hr Q24H IV 05/19/17 09:00 05/19/17 09:28 Cefepime HCl 1000 mg/Sodium Chloride 100 ml @ 200 mls/hr Q12H IV 05/19/17 10:00 05/19/17 11:07 (NS 1000 ml Inj) 1,000 ml @ 84 mls/hr [id number] IV 05/19/17 10:00 05/19/17 09:27 Urinary Catheter: No Vascular Central Line Catheter: No A/P Assessment and Plan 72-year-old male with past medical history of OA who presented after syncopal episode Syncope: Likely secondary to acute infection. Carotid ultrasound no significant stenosis. Troponin flat, nonischemic 3. EKG with sinus dysrhythmia was slightly tachycardic rate. Mild dehydration noted on labs at admission. Echocardiogram ordered and pending. Treat pneumonia as below. Monitor on telemetry. PT eval. IVF. Pneumonia with sepsis: Tachycardia, tachypnea, leukocytosis. Chest x-ray and CT show right lower lobe pneumonia with hilar adenopathy. IV antibiotics with azithromycin and cefepime. Check urinary antigens and blood cultures. Swallow eval. Scheduled nebs. O2 as needed. Left hip pain s/p fall from syncope: Pain is improved. X-ray negative for any acute process. Tylenol as needed. Obesity recommended diet and exercise. DVT prophylaxis: Lovenox GI prophylaxis: Protonix Discharge Planning Expected in two days. he will need to complete at least three days on IV antibiotics. Attending Statement Seen in his bedroom and status post Swallow test He past the swallow test, as per PT he will go Home with no PT. examined and he is hard hearing not wearing his hearing aids Ja Miner May 19, 2017 08:54 Rocco Alejandre MD May 19, 2017 16:19
[2017-05-19] MEDS: SODIUM CHLOR 0.9% 1000 ML INJ 1,000 ML IV SCH ×2 (09:27→22:07)
[2017-05-19] MEDS: ENOXAPARIN SODIUM 40 MG/0.4 ML SYRINGE SQ SCH (09:27)
[2017-05-19] MEDS: PANTOPRAZOLE SOD 40 MG DELAYED RELEASE TAB PO SCH (09:27)
[2017-05-19] MEDS: AZITHROMYCIN INJ 500 MG in SODIUM CHLOR 0.9% 250 ML INJ 250 ML IV SCH (09:28)
[2017-05-19] MEDS: SODIUM CHLORIDE 0.9% FLUSH 10 ML FLUSH IV FLUSH SCH ×2 (09:28→20:49)
[2017-05-19] MEDS: CEFEPIME INJ 1,000 MG in SODIUM CHLORIDE 0.9% INJ 100 ML IV SCH ×2 (11:07→22:06)
[2017-05-19] MEDS: RESP: ALBUTEROL 2.5 MG/IPRATROPIUM 0.5 MG NEB (SCH) NEB ×2 (14:00→20:00)
--- NOTE | 2017-05-19 15:07 | EKG ---
Date Performed: 05/18/2017 Time Performed: 18:29:34 PTAGE: 72 years EKG: ATRIAL FIBRILLATION WITH RAPID VENTRICULAR RESPONSE ABNORMAL RHYTHM ECG NO PREVIOUS TRACING DOCTOR: Tuyet Allred Interpretating Date/Time 05/19/2017 14:59:56
--- NOTE | 2017-05-19 18:23 | ECHRPT ---
Indication: CONCLUSIONS The left ventricular systolic function is low normal with an estimated ejection fraction in the rang e of 50- 55%. There is assymetric septal hypertrophy. [id number] mitral valve regurgitation. BP: / HR: Rhythm: MEASUREMENTS (Male / Female) Normal Values Technical Quality: 2D ECHO LV Diastolic Diameter PLAX 4.5 cm 4.2 - 5.9 / 3.9 - 5.3 cm LV Systolic Diameter PLAX 3.5 cm IVS Diastolic Thickness 1.3 cm 0.6 - 1.0 / 0.6 - 0.9 cm LVPW Diastolic Thickness 0.9 cm 0.6 - 1.0 / 0.6 - 0.9 cm LV Relative Wall Thickness 0.5 RV Internal Dim ED PLAX 2.1 cm M-MODE Aortic Root Diameter MM 3.5 cm LA Systolic Diameter MM 3.6 cm LA Ao Ratio MM 1.0 AV Cusp Separation MM 2.2 cm FINDINGS LEFT VENTRICLE Normal left ventricular size. There is assymetric septal hypertrophy. The left ventricular systolic function is low normal with an estimated ejection fraction in the rang e of 50- 55%. There was limited left ventricular wall motion assessment due to poor endocardial visualization. RIGHT VENTRICLE The right ventricular size is normal. LEFT ATRIUM The left atrial size is mildly dilated. RIGHT ATRIUM The right atrial size is normal. ATRIAL SEPTUM The interatrial septum not well visualized. AORTA The aortic root and proximal ascending aorta are not well visualized. MITRAL VALVE Structurally normal mitral valve. [id number] mitral valve regurgitation. No mitral valve stenosis. AORTIC VALVE No aortic valve regurgitation. No aortic valve stenosis. TRICUSPID VALVE Structurally normal tricuspid valve. No tricuspid regurgitation. No tricuspid valve stenosis. PULMONARY VALVE The pulmonary valve is not well visualized. PERICARDIUM No pericardial effusion. Skip Hyde DO (Electronically Signed) Final Date:19 May 2017 18:23
[2017-05-19] MEDS ORDERED: AZITHROMYCIN INJ 500 MG in SODIUM CHLOR 0.9% 250 ML INJ 250 ML IV SCH (20:00)
[2017-05-19] MEDS ORDERED: cefTRIAXone INJ 1,000 MG in SODIUM CHLORIDE 0.9% INJ 100 ML IV SCH (21:00)
[2017-05-20] VITALS (10 sets, daily range): BP systolic 131–179; BP diastolic 61–98; PULSE 62–88; RESP 16–18; TEMP 97.8–98.3; O2SAT 95–98
[2017-05-20 06:46] LABS: AUTOMATED NEUTROPHIL # 8.1 TH/MM3 (1.8-7.7); BASOPHIL # 0.1 TH/MM3 (0-0.2); BASOPHIL % 0.9 % (0.0-2.0); EOSINOPHIL # 0.2 TH/MM3 (0-0.4); EOSINOPHIL % 2.3 % (0.0-4.0); HEMATOCRIT 38.2 % (39.0-51.0); HEMO FLAGS DIFF FINAL; LYMPH % 14.1 % (9.0-44.0); LYMPHOCYTE # 1.5 TH/MM3 (1.0-4.8); MEAN CELL VOLUME 92.3 FL (80.0-100.0); MEAN CORPUSCULAR HEMOGLOBIN 31.4 PG (27.0-34.0); MONO % 7.9 % (0.0-8.0); NEUT % 74.8 % (16.0-70.0); PLATELET COUNT 199 TH/MM3 (150-450); RED BLOOD COUNT 4.14 MIL/MM3 (4.50-5.90); RED CELL DISTRIBUTION WIDTH 14.6 % (11.6-17.2); WHITE BLOOD COUNT 10.8 TH/MM3 (4.0-11.0)
[2017-05-20 07:18] LABS: BICARBONATE 20.9 MEQ/L (21.0-32.0); POTASSIUM 3.9 MEQ/L (3.5-5.1)
[2017-05-20] MEDS: RESP: ALBUTEROL 2.5 MG/IPRATROPIUM 0.5 MG NEB (SCH) NEB ×3 (09:00→19:40)
--- NOTE | 2017-05-20 09:11 | RADRPT ---
EXAM DATE/TIME: 05/20/2017 08:35 [facility] COMPARISON: CHEST SINGLE AP, May 18, 2017, 18:47. INDICATIONS : Short of breath, wheezing. MEDICAL HISTORY : Smoker. SURGICAL HISTORY : None. ENCOUNTER: Initial ACUITY: 3 days PAIN SCORE: 0/10 LOCATION: chest FINDINGS: PA and lateral views of the chest demonstrate the lungs to be symmetrically aerated without evidence of mass, infiltrate or effusion. The cardiomediastinal contours are unremarkable. Osseous structure s are intact. CONCLUSION: Patchy infiltrates right lower lobe. Recommend medical treatment and followup to resolution using ser ial radiographs. Velasquez Ramirez MD on May 20, 2017 at 9:08 Board Certified Radiologist. This report was verified electronically.
[2017-05-20] MEDS: AZITHROMYCIN INJ 500 MG in SODIUM CHLOR 0.9% 250 ML INJ 250 ML IV SCH (09:18)
[2017-05-20] MEDS: SODIUM CHLORIDE 0.9% FLUSH 10 ML FLUSH IV FLUSH SCH ×2 (09:18→22:16)
[2017-05-20] MEDS: PANTOPRAZOLE SOD 40 MG DELAYED RELEASE TAB PO SCH (09:18)
[2017-05-20] MEDS: ENOXAPARIN SODIUM 40 MG/0.4 ML SYRINGE SQ SCH (09:19)
[2017-05-20] MEDS: CEFEPIME INJ 1,000 MG in SODIUM CHLORIDE 0.9% INJ 100 ML IV SCH ×2 (10:51→22:16)
--- NOTE | 2017-05-20 11:12 | HHI.PR ---
Subjective Remarks Follow up for syncope, fall, pneumonia. The patient is extremely hard of hearing , reads lips. He reports feeling better today. Denies any fevers/chills, cough, chest pain, or shortness of breath. Discussed staying in hospital one more night for treatment of pneumonia, patient agrees, he wants to go home tomorrow morning. He has no other medical complaints at this time. Objective Vitals Vital Signs Date Time Temp Pulse Resp B/P Pulse Ox O2 Delivery O2 Flow Rate FiO2 05/20/17 08:06 98.3 88 16 133/72 97 05/20/17 04:00 97.8 77 18 141/74 97 05/20/17 00:40 98.2 68 18 141/74 97 05/19/17 20:50 99 21 05/19/17 19:39 98.5 67 18 156/80 97 05/19/17 16:26 74 05/19/17 15:41 97.9 83 14 141/72 97 05/19/17 12:11 97.9 89 20 135/77 97 05/19/17 12:10 83 I/O 05/19/17 05/19/17 05/19/17 05/20/17 05/20/17 05/20/17 07:00 15:00 23:00 07:00 15:00 23:00 Intake Total 1224 ml 408 ml Balance 1224 ml 408 ml Intake Oral 720 ml 240 ml IV Total 504 ml 168 ml # Voids 3 3 1 Result Diagram: 05/20/17 0614 05/20/17 0614 Imaging Last Impressions Chest X-Ray 05/20/17 0700 Signed Impressions: Service Date/Time: Saturday, May 20, 2017 08:35 - CONCLUSION: Patchy infiltrates right lower lobe. Recommend medical treatment and followup to resolution using serial radiographs. Velasquez Ramirez MD Head CT 05/18/17 1811 Signed Impressions: Service Date/Time: Thursday, May 18, 2017 18:37 - CONCLUSION: No acute disease. Enrrique Summers MD Hip and Pelvis X-Ray 05/18/17 0000 Signed Impressions: Service Date/Time: Thursday, May 18, 2017 22:39 - CONCLUSION: No acute disease. Enrrique Summers MD Carotid Artery Ultrasound 05/18/17 0000 Signed Impressions: Service Date/Time: Thursday, May 18, 2017 20:44 - CONCLUSION: 1. No evidence for hemodynamically significant stenosis. Minimal plaque deposition left greater than right. Enrrique Summers MD CT Angiography 05/18/17 0000 Signed Impressions: Service Date/Time: Thursday, May 18, 2017 21:35 - CONCLUSION: 1. Right lower lobe pneumonia with right hilar adenopathy. 2. Right renal cyst. 3. Coronary calcification. 4. No evidence for pulmonary embolus Enrrique Summers MD Objective Remarks GENERAL: Well-nourished, well-developed pleasant elderly male patient in NAD. Extremely hard of hearing, reads lips. SKIN: Warm and dry. No rash. HEENT: Normocephalic. Atraumatic.Pupils equal and round. Mucous membranes pink and moist. NECK: Supple. Trachea midline. CARDIOVASCULAR: Regular rate and rhythm. S1, S2 noted. No murmur appreciated. RESPIRATORY: No accessory muscle use. Mildly tachypneic. Decreased breath sounds at right base, otherwise clear to auscultation. GASTROINTESTINAL: Abdomen soft, non-tender, nondistended. Normoactive bowel sounds x4. MUSCULOSKELETAL: No obvious deformities. Extremities without clubbing, cyanosis , or edema. NEUROLOGICAL: Awake and alert. No obvious cranial nerve deficits. Motor grossly within normal limits. Normal speech. Procedures None Medications and IVs Current Medications Medications (Trade) Dose Ordered Sig/Ana Route Start Time Stop Time Status Last Admin (NS Flush) 2 ml UNSCH PRN IV FLUSH 05/18/17 20:30 (NS Flush) 2 ml BID IV FLUSH 05/18/17 21:00 05/20/17 09:18 (Narcan Inj) 0.4 mg UNSCH PRN IV 05/18/17 20:30 (Lovenox Inj) 40 mg Q24H SQ 05/19/17 09:00 05/20/17 09:19 (Protonix) 40 mg DAILY PO 05/19/17 09:00 05/20/17 09:18 Acetaminophen 650 mg 650 mg Q4H PRN PO 05/19/17 07:30 Azithromycin 500 mg/Sodium Chloride 250 ml @ 250 mls/hr Q24H IV 05/19/17 09:00 05/20/17 09:18 Cefepime HCl 1000 mg/Sodium Chloride 100 ml @ 200 mls/hr Q12H IV 05/19/17 10:00 05/20/17 10:51 (NS 1000 ml Inj) 1,000 ml @ 84 mls/hr [id number] IV 05/19/17 10:00 05/19/17 22:07 A/P Assessment and Plan 72-year-old male with past medical history of OA who presented after syncopal episode Syncope: Suspect secondary to acute infection with pneumonia. -Carotid U/S no significant stenosis. -Troponin flat, nonischemic 3. No chest pains. -EKG with sinus dysrhythmia slightly tachycardic rate, improved. -Mild dehydration noted on labs at admission. -Echocardiogram with normal systolic function EF 50-55% -Treat pneumonia as below. -Monitor on telemetry. -PT eval, no PT needed at discharge. -Give IVF. Sepsis with Community Acquired Pneumonia: Tachycardia HR 129, tachypnea RR 24, leukocytosis WBC 12.6K. -CXR and CT-PA show right lower lobe pneumonia with hilar adenopathy; images reviewed by me. -Continue IV antibiotics with azithromycin and cefepime. -Urinary antigens negative. -Blood cultures pending. -Swallow eval completed, ST recommends mechanical soft, chopped meat with gravy, and thin liquids ok. -Continue Scheduled nebs. -O2 as needed. Left hip pain s/p fall from syncope: Pain is improved. -X-ray negative for any acute process. -Tylenol as needed. Obesity: recommended diet and exercise. Atrial Fibrillation: EKG reviewed by me, showed atrial fibrillation with RVR, HR 108 upon arrival, suspect secondary to sepsis with acute infection. No hx of afib. -HR well controlled on no medications, suspect patient back in sinus rhythm, will check repeat EKG -start on aspirin 81mg daily DVT prophylaxis: Lovenox GI prophylaxis: Protonix Discharge Planning Patient improving. Likely discharge tomorrow with [facility] Nursing. Case management consulted to assist with discharge planning. Attending Statement The exam, history, and the medical decision-making described in the above note were completed with the assistance of the mid-level provider. I reviewed and agree with the findings presented. I attest that I had a [id number] encounter with the patient on the same day, and personally performed and documented my assessment and findings in the medical record. Will follow new CXR in am tomorrow if improving will discharge home on by mouth antibiotics. Beryl Jordan PA-C May 20, 2017 11:12 Rocco Alejandre MD May 21, 2017 09:54
[2017-05-20] MEDS ORDERED: AZIT500T2 PO (17:09)
[2017-05-20] MEDS ORDERED: CEFU1TAB20 PO (17:09)
--- NOTE | 2017-05-20 17:09 | HHI.DCPOC ---
Discharge Care Plan Diagnosis: (1) Pneumonia Goals to Promote Your Health * To prevent worsening of your condition and complications * To maintain your health at the optimal level Directions to Meet Your Goals Take your medications as prescribed Follow your dietary instruction Follow activity as directed Keep your appointments as scheduled Take your immunizations and boosters as scheduled If your symptoms worsen call your PCP, if no PCP go to Urgent Care Center or Emergency Room Smoking is Dangerous to Your Health. Avoid second hand smoke Call the 24-hour hour crisis hotline for domestic abuse at Beryl Jordan PA-C May 20, 2017 5:09 pm
--- NOTE | 2017-05-20 17:16 | HHI.FF ---
Face to Face Verification Diagnosis: (1) Pneumonia (2) Syncope (3) Fall Home Health Nursing Order: Medical education Signs/symptoms of disease process Nursing assessment with vital signs I have seen patient Samuel Almodovar on 05/20/17. My clinical findings support the need for the requested home health care services because: Limited ability to care for self Impaired cognition/judgement I certify that my clinical findings support that this patient is homebound because: Unsafe to leave home unassisted Unable to use public transportation The exam, history, and the medical decision-making described in the above note were completed with the assistance of the mid-level provider. I reviewed and agree with the findings presented. I attest that I had a [id number] encounter with the patient on the same day, and personally performed and documented my assessment and findings in the medical record. Beryl Jordan PA-C May 20, 2017 17:16 Rocco Alejandre MD May 20, 2017 17:24
[2017-05-20] MEDS: SODIUM CHLOR 0.9% 1000 ML INJ 1,000 ML IV SCH ×2 (17:24→22:15)
[2017-05-21] VITALS (10 sets, daily range): BP systolic 16–172; BP diastolic 83–90; PULSE 77–103; RESP 20–24; TEMP 97.1–98.6; O2SAT 96–100
[2017-05-21] MEDS: RESP: ALBUTEROL 2.5 MG/IPRATROPIUM 0.5 MG NEB (SCH) NEB ×3 (08:24→20:23)
--- NOTE | 2017-05-21 08:54 | HHI.PR ---
Subjective Remarks This is pleasant 72 y/o male with status post syncope and fall, has Pneumonia, extremely hard of hearing Denies any fevers/chills, cough, chest pain, or shortness of breath. needs at least three days for management for Pneumonia IV treatment, today on new CXR continue with some infiltrate but improving slowly, he continue with some shortness of breath, will continue present care and follow in am tomorrow for possible discharge. Objective Vital Signs Date Time Temp Pulse Resp B/P Pulse Ox O2 Delivery O2 Flow Rate FiO2 05/21/17 08:27 96 21 05/21/17 08:17 98.1 101 22 16/83 99 05/21/17 04:15 98.0 101 20 172/90 97 05/21/17 03:00 81 05/21/17 00:11 97.2 103 20 144/86 98 05/20/17 20:25 78 05/20/17 20:03 98.0 62 18 179/98 97 05/20/17 19:40 95 05/20/17 15:52 97.9 80 18 131/61 98 05/20/17 15:41 82 05/20/17 12:25 97.8 77 16 138/84 98 I/O 05/20/17 05/20/17 05/20/17 05/21/17 05/21/17 05/21/17 07:00 15:00 23:00 07:00 15:00 23:00 Intake Total 408 ml 1524 ml 120 ml Output Total 900 ml Balance 408 ml 624 ml 120 ml Intake Oral 240 ml 720 ml 120 ml IV Total 168 ml 804 ml Output Urine Total 900 ml # Voids 1 2 1 # Bowel Movements 1 1 Result Diagram: 05/20/17 0614 05/20/17 0614 Imaging Last Impressions Chest X-Ray 05/20/17 0700 Signed Impressions: Service Date/Time: Saturday, May 20, 2017 08:35 - CONCLUSION: Patchy infiltrates right lower lobe. Recommend medical treatment and followup to resolution using serial radiographs. Velasquez Ramirez MD Head CT 05/18/17 1811 Signed Impressions: Service Date/Time: Thursday, May 18, 2017 18:37 - CONCLUSION: No acute disease. Enrrique Summers MD Hip and Pelvis X-Ray 05/18/17 0000 Signed Impressions: Service Date/Time: Thursday, May 18, 2017 22:39 - CONCLUSION: No acute disease. Enrrique Summers MD Carotid Artery Ultrasound 05/18/17 0000 Signed Impressions: Service Date/Time: Thursday, May 18, 2017 20:44 - CONCLUSION: 1. No evidence for hemodynamically significant stenosis. Minimal plaque deposition left greater than right. Enrrique Summers MD CT Angiography 05/18/17 0000 Signed Impressions: Service Date/Time: Thursday, May 18, 2017 21:35 - CONCLUSION: 1. Right lower lobe pneumonia with right hilar adenopathy. 2. Right renal cyst. 3. Coronary calcification. 4. No evidence for pulmonary embolus Enrrique Summers MD Procedures None Other Results Laboratory Tests Test 05/18/17 05/18/17 05/18/17 05/19/17 17:50 19:15 21:16 05:02 Magnesium Level 1.8 MG/DL Total Bilirubin 0.6 MG/DL Aspartate Amino Transf 23 U/L (AST/SGOT) Alanine Aminotransferase 11 U/L (ALT/SGPT) Alkaline Phosphatase 66 U/L Creatine Kinase MB 0.6 NG/ML Total Protein 6.6 GM/DL Albumin 2.7 GM/DL Thyroid Stimulating Hormone 1.050 uIU/ML 3rd Gen Ethyl Alcohol Level LESS THAN 3 MG/DL Lactic Acid Level 1.1 mmol/L Urine Color YELLOW Urine Turbidity CLEAR Urine pH 6.0 Urine Specific [place] 1.021 Urine Protein 30 mg/dL Urine Glucose (UA) NEG mg/dL Urine Ketones NEG mg/dL Urine Occult Blood SMALL Urine Nitrite NEG Urine Bilirubin NEG Urine Urobilinogen LESS THAN 2.0 MG/DL Urine Leukocyte Esterase NEG Urine RBC LESS THAN 1 /hpf Urine WBC 1 /hpf Urine Squamous Epithelial <1 /hpf Cells Microscopic Urinalysis Comment CULT NOT INDICATED Urine Opiates Screen NEG Urine Barbiturates Screen NEG Urine Amphetamines Screen NEG Urine Benzodiazepines Screen NEG Urine Cocaine Screen NEG Urine Cannabinoids Screen NEG Total Creatine Kinase 262 U/L Troponin I 0.06 NG/ML Test 05/20/17 06:14 White Blood Count 10.8 TH/MM3 Red Blood Count 4.14 MIL/MM3 Hemoglobin 13.0 GM/DL Hematocrit 38.2 % Mean Corpuscular Volume 92.3 FL Mean Corpuscular Hemoglobin 31.4 PG Mean Corpuscular Hemoglobin 34.0 % Concent Red Cell Distribution Width 14.6 % Platelet Count 199 TH/MM3 Mean Platelet Volume 8.8 FL Neutrophils (%) (Auto) 74.8 % Lymphocytes (%) (Auto) 14.1 % Monocytes (%) (Auto) 7.9 % Eosinophils (%) (Auto) 2.3 % Basophils (%) (Auto) 0.9 % Neutrophils # (Auto) 8.1 TH/MM3 Lymphocytes # (Auto) 1.5 TH/MM3 Monocytes # (Auto) 0.9 TH/MM3 Eosinophils # (Auto) 0.2 TH/MM3 Basophils # (Auto) 0.1 TH/MM3 CBC Comment DIFF FINAL Differential Comment Sodium Level 138 MEQ/L Potassium Level 3.9 MEQ/L Chloride Level 106 MEQ/L Carbon Dioxide Level 20.9 MEQ/L Anion Gap 11 MEQ/L Blood Urea Nitrogen 14 MG/DL Creatinine 1.13 MG/DL Estimat Glomerular Filtration 63 ML/MIN Rate Random Glucose 108 MG/DL Calcium Level 8.3 MG/DL Objective Remarks GENERAL: Morbid Obese patient, no acute distress. Extremely hard of hearing, reads lips. SKIN: Warm and dry. No rash. HEENT: Normocephalic. Atraumatic.Pupils equal and round. Mucous membranes pink and moist. NECK: Supple. Trachea midline. CARDIOVASCULAR: Regular rate and rhythm. S1, S2 noted. No murmur appreciated. RESPIRATORY: No accessory muscle use. Mildly tachypneic. Decreased breath sounds at right base, otherwise clear to auscultation. GASTROINTESTINAL: Abdomen soft, non-tender, nondistended. Normoactive bowel sounds x4. MUSCULOSKELETAL: No obvious deformities. Extremities without clubbing, cyanosis , or edema. NEUROLOGICAL: Awake and alert. No obvious cranial nerve deficits. Motor grossly within normal limits. Normal speech. Medications and IVs Current Medications Medications (Trade) Dose Ordered Sig/Ana Route Start Time Stop Time Status Last Admin (NS Flush) 2 ml UNSCH PRN IV FLUSH 05/18/17 20:30 (NS Flush) 2 ml BID IV FLUSH 05/18/17 21:00 05/20/17 22:16 (Narcan Inj) 0.4 mg UNSCH PRN IV 05/18/17 20:30 (Lovenox Inj) 40 mg Q24H SQ 05/19/17 09:00 05/20/17 09:19 (Protonix) 40 mg DAILY PO 05/19/17 09:00 05/20/17 09:18 Acetaminophen 650 mg 650 mg Q4H PRN PO 05/19/17 07:30 Azithromycin 500 mg/Sodium Chloride 250 ml @ 250 mls/hr Q24H IV 05/19/17 09:00 05/20/17 09:18 Cefepime HCl 1000 mg/Sodium Chloride 100 ml @ 200 mls/hr Q12H IV 05/19/17 10:00 05/20/17 22:16 (NS 1000 ml Inj) 1,000 ml @ 84 mls/hr [id number] IV 05/19/17 10:00 05/20/17 22:15 (Ecotrin Ec) 81 mg DAILY PO 05/21/17 09:00 A/P Assessment and Plan 72-year-old male with past medical history of OA who presented after syncopal episode Syncope: Likely secondary to acute infection. Carotid ultrasound no significant stenosis. Troponin flat, nonischemic 3. EKG with sinus dysrhythmia was slightly tachycardic rate. Mild dehydration noted on labs at admission. Echocardiogram EF 50-55%. Treat pneumonia as below. Monitor on telemetry. PT eval. IVF. Improved now standing without difficulty. Pneumonia with sepsis: Tachycardia, tachypnea, leukocytosis. Chest x-ray and CT show right lower lobe pneumonia with hilar adenopathy. IV antibiotics with azithromycin and cefepime. Check urinary antigens and blood cultures. Swallow eval. Scheduled nebs. O2 as needed. not wearing oxygen, has some Dyspnea on exertion, his EF 50-55%. Left hip pain s/p fall from syncope: Pain is improved. X-ray negative for any acute process. Tylenol as needed. Morbid Obesity recommended diet and exercise. DVT prophylaxis: Lovenox GI prophylaxis: Protonix Discharge Planning Expected by tomorrow. Rocco Alejandre MD May 21, 2017 08:54 Rocco Alejandre MD May 21, 2017 08:54
[2017-05-21] MEDS: SODIUM CHLORIDE 0.9% FLUSH 10 ML FLUSH IV FLUSH SCH ×2 (09:00→22:34)
[2017-05-21] MEDS: CEFEPIME INJ 1,000 MG in SODIUM CHLORIDE 0.9% INJ 100 ML IV SCH ×3 (09:30→22:34)
[2017-05-21] MEDS: SODIUM CHLOR 0.9% 1000 ML INJ 1,000 ML IV SCH (09:40)
[2017-05-21] MEDS: amLODIPine BESYLATE 5 MG TAB PO SCH (09:44)
[2017-05-21] MEDS: ASPIRIN EC 81 MG TABEC PO SCH (09:44)
[2017-05-21] MEDS: PANTOPRAZOLE SOD 40 MG DELAYED RELEASE TAB PO SCH (09:46)
[2017-05-21] MEDS: ENOXAPARIN SODIUM 40 MG/0.4 ML SYRINGE SQ SCH (09:46)
--- NOTE | 2017-05-21 10:13 | RADRPT ---
EXAM DATE/TIME: 05/21/2017 09:58 [place] COMPARISON: CHEST PA & LAT, May 20, 2017, 8:35. INDICATIONS : Patient extremely short of breath. MEDICAL HISTORY : None. SURGICAL HISTORY : None. ENCOUNTER: Subsequent ACUITY: 3 days PAIN SCORE: 0/10 LOCATION: Bilateral upper chest FINDINGS: There is slight improvement in the aeration of the right lung base, however persistent infiltrate rem ains at this site. Slight cardiomegaly has not changed and there is minimal prominence of the interst itial markings. CONCLUSION: Slight improvement in the aeration of the right lung base. Boris Toscano MD on May 21, 2017 at 10:10 Board Certified Radiologist. This report was verified electronically.
[2017-05-21] MEDS: AZITHROMYCIN INJ 500 MG in SODIUM CHLOR 0.9% 250 ML INJ 250 ML IV SCH (11:09)
[2017-05-21] MEDS: guaiFENesin E.R. 600 MG TAB PO SCH ×2 (18:34→22:34)
[2017-05-22] VITALS (7 sets, daily range): BP systolic 119–176; BP diastolic 76–93; PULSE 83–106; RESP 20–22; TEMP 93–98.1; O2SAT 95–99
[2017-05-22] MEDS: RESP: ALBUTEROL 2.5 MG/IPRATROPIUM 0.5 MG NEB (SCH) NEB ×2 (08:00→20:00)
[2017-05-22] MEDS: SODIUM CHLORIDE 0.9% FLUSH 10 ML FLUSH IV FLUSH SCH ×2 (09:00→22:19)
[2017-05-22] MEDS: ENOXAPARIN SODIUM 40 MG/0.4 ML SYRINGE SQ SCH (09:43)
[2017-05-22] MEDS: amLODIPine BESYLATE 5 MG TAB PO SCH (09:44)
[2017-05-22] MEDS: ASPIRIN EC 81 MG TABEC PO SCH (09:44)
[2017-05-22] MEDS: PANTOPRAZOLE SOD 40 MG DELAYED RELEASE TAB PO SCH (09:44)
[2017-05-22] MEDS: AZITHROMYCIN 250 MG TAB PO SCH (09:44)
[2017-05-22] MEDS: guaiFENesin E.R. 600 MG TAB PO SCH ×2 (09:44→22:17)
[2017-05-22] MEDS: CEFEPIME INJ 1,000 MG in SODIUM CHLORIDE 0.9% INJ 100 ML IV SCH ×2 (10:49→22:18)
--- NOTE | 2017-05-22 11:51 | HHI.PR ---
Subjective Remarks This is pleasant 72 y/o male with status post syncope and fall, has Pneumonia, extremely hard of hearing Denies any fevers/chills, cough, chest pain, or shortness of breath. needs at least three days for management for Pneumonia IV treatment, today on new CXR continue with some infiltrate but improving slowly, he continue with some shortness of breath, optimized respiratory therapy. 05/22: Seen in his bedroom, he states he smoked Pipe for a long time, probable diagnosis more related to COPD versus Interstitial lung disease or both, also Obesity Hypoventilation syndrome and ETHAN component will get consult with patient relations specialist. no nausea, vomit or diarrhea. discussed with nurse Miss Olmstead. Objective Vital Signs Date Time Temp Pulse Resp B/P Pulse Ox O2 Delivery O2 Flow Rate FiO2 05/22/17 08:29 97.8 93 20 173/93 98 05/22/17 04:00 93.0 106 22 138/76 96 05/22/17 00:00 97.6 83 22 160/81 96 05/21/17 20:45 77 05/21/17 20:25 96 21 05/21/17 20:00 98.0 100 24 155/89 100 05/21/17 16:51 97.1 98 21 142/87 96 05/21/17 12:06 98.6 98 21 168/89 99 I/O 05/21/17 05/21/17 05/21/17 05/22/17 05/22/17 05/22/17 06:59 14:59 22:59 06:59 14:59 22:59 Intake Total 120 ml 1333 ml Output Total 50 ml Balance 120 ml -50 ml 1333 ml Intake Oral 120 ml IV Total 1333 ml Chest Tube Drainage Total 50 ml # Voids 1 4 # Bowel Movements 1 Result Diagram: 05/20/17 0614 05/20/17 0614 Imaging Last Impressions Chest X-Ray 05/21/17 0000 Signed Impressions: Service Date/Time: Sunday, May 21, 2017 09:58 - CONCLUSION: Slight improvement in the aeration of the right lung base. Boris Toscano MD Head CT 05/18/17 1811 Signed Impressions: Service Date/Time: Thursday, May 18, 2017 18:37 - CONCLUSION: No acute disease. Enrrique Summers MD Hip and Pelvis X-Ray 05/18/17 0000 Signed Impressions: Service Date/Time: Thursday, May 18, 2017 22:39 - CONCLUSION: No acute disease. Enrrique Summers MD Carotid Artery Ultrasound 05/18/17 0000 Signed Impressions: Service Date/Time: Thursday, May 18, 2017 20:44 - CONCLUSION: 1. No evidence for hemodynamically significant stenosis. Minimal plaque deposition left greater than right. Enrrique Summers MD CT Angiography 05/18/17 0000 Signed Impressions: Service Date/Time: Thursday, May 18, 2017 21:35 - CONCLUSION: 1. Right lower lobe pneumonia with right hilar adenopathy. 2. Right renal cyst. 3. Coronary calcification. 4. No evidence for pulmonary embolus Enrrique Summers MD Procedures None Other Results Laboratory Tests Test 05/18/17 05/18/17 05/18/17 05/19/17 17:50 19:15 21:16 05:02 Magnesium Level 1.8 MG/DL Total Bilirubin 0.6 MG/DL Aspartate Amino Transf 23 U/L (AST/SGOT) Alanine Aminotransferase 11 U/L (ALT/SGPT) Alkaline Phosphatase 66 U/L Creatine Kinase MB 0.6 NG/ML Total Protein 6.6 GM/DL Albumin 2.7 GM/DL Thyroid Stimulating Hormone 1.050 uIU/ML 3rd Gen Ethyl Alcohol Level LESS THAN 3 MG/DL Lactic Acid Level 1.1 mmol/L Urine Color YELLOW Urine Turbidity CLEAR Urine pH 6.0 Urine Specific [place] 1.021 Urine Protein 30 mg/dL Urine Glucose (UA) NEG mg/dL Urine Ketones NEG mg/dL Urine Occult Blood SMALL Urine Nitrite NEG Urine Bilirubin NEG Urine Urobilinogen LESS THAN 2.0 MG/DL Urine Leukocyte Esterase NEG Urine RBC LESS THAN 1 /hpf Urine WBC 1 /hpf Urine Squamous Epithelial <1 /hpf Cells Microscopic Urinalysis Comment CULT NOT INDICATED Urine Opiates Screen NEG Urine Barbiturates Screen NEG Urine Amphetamines Screen NEG Urine Benzodiazepines Screen NEG Urine Cocaine Screen NEG Urine Cannabinoids Screen NEG Total Creatine Kinase 262 U/L Troponin I 0.06 NG/ML Test 05/20/17 06:14 White Blood Count 10.8 TH/MM3 Red Blood Count 4.14 MIL/MM3 Hemoglobin 13.0 GM/DL Hematocrit 38.2 % Mean Corpuscular Volume 92.3 FL Mean Corpuscular Hemoglobin 31.4 PG Mean Corpuscular Hemoglobin 34.0 % Concent Red Cell Distribution Width 14.6 % Platelet Count 199 TH/MM3 Mean Platelet Volume 8.8 FL Neutrophils (%) (Auto) 74.8 % Lymphocytes (%) (Auto) 14.1 % Monocytes (%) (Auto) 7.9 % Eosinophils (%) (Auto) 2.3 % Basophils (%) (Auto) 0.9 % Neutrophils # (Auto) 8.1 TH/MM3 Lymphocytes # (Auto) 1.5 TH/MM3 Monocytes # (Auto) 0.9 TH/MM3 Eosinophils # (Auto) 0.2 TH/MM3 Basophils # (Auto) 0.1 TH/MM3 CBC Comment DIFF FINAL Differential Comment Sodium Level 138 MEQ/L Potassium Level 3.9 MEQ/L Chloride Level 106 MEQ/L Carbon Dioxide Level 20.9 MEQ/L Anion Gap 11 MEQ/L Blood Urea Nitrogen 14 MG/DL Creatinine 1.13 MG/DL Estimat Glomerular Filtration 63 ML/MIN Rate Random Glucose 108 MG/DL Calcium Level 8.3 MG/DL Objective Remarks GENERAL: Morbid Obese patient, no acute distress. Extremely hard of hearing, reads lips. SKIN: Warm and dry. No rash. HEENT: Normocephalic. Atraumatic.Pupils equal and round. Mucous membranes pink and moist. NECK: Supple. Trachea midline. CARDIOVASCULAR: Regular rate and rhythm. S1, S2 noted. No murmur appreciated. RESPIRATORY: tachypneic, expiratory wheezing present, dyspnea, decreased breath sounds bilateral. GASTROINTESTINAL: Abdomen soft, non-tender, nondistended. Normoactive bowel sounds x4. MUSCULOSKELETAL: No obvious deformities. Extremities without clubbing, cyanosis , or edema. NEUROLOGICAL: Awake and alert. No obvious cranial nerve deficits. Motor grossly within normal limits. Normal speech. Medications and IVs Current Medications Medications (Trade) Dose Ordered Sig/Ana Route Start Time Stop Time Status Last Admin (NS Flush) 2 ml UNSCH PRN IV FLUSH 05/18/17 20:30 (NS Flush) 2 ml BID IV FLUSH 05/18/17 21:00 05/21/17 22:34 (Narcan Inj) 0.4 mg UNSCH PRN IV 05/18/17 20:30 (Lovenox Inj) 40 mg Q24H SQ 05/19/17 09:00 05/22/17 09:43 (Protonix) 40 mg DAILY PO 05/19/17 09:00 05/22/17 09:44 Acetaminophen 650 mg 650 mg Q4H PRN PO 05/19/17 07:30 (Maxipime Inj/NS Inj) 100 ml @ 200 mls/hr Q12H IV 05/19/17 10:00 05/22/17 10:49 (Ecotrin Ec) 81 mg DAILY PO 05/21/17 09:00 05/22/17 09:44 (Norvasc) 5 mg DAILY PO 05/21/17 09:00 05/22/17 09:44 (Mucinex Er) 600 mg BID PO 05/21/17 13:30 05/22/17 09:44 (Zithromax) 500 mg DAILY PO 05/22/17 09:00 05/22/17 09:44 A/P Assessment and Plan 72-year-old male with past medical history of OA who presented after syncopal episode Syncope: Likely secondary to acute infection. Carotid ultrasound no significant stenosis. Troponin flat, nonischemic 3. EKG with sinus dysrhythmia was slightly tachycardic rate. Mild dehydration noted on labs at admission. Echocardiogram EF 50-55%. Treat pneumonia as below. Monitor on telemetry. PT eval. IVF. Removed IV fluids yesterday but remembered to the Nurse. Pneumonia with sepsis: Tachycardia, tachypnea, leukocytosis. Chest x-ray and CT show right lower lobe pneumonia with hilar adenopathy. IV antibiotics with azithromycin and cefepime. Cultures were negative, Swallow eval recommended Mechanical soft diet, not improving his respiratory status, also I think is worsening, with Expiratory wheezing, worsening since yesterday added Budesonide Nebulizer, started on Steroids IV and asked for patient relations specialist consult he has been smoking Pipe for a long time and thinking in COPD versus Interstitial Lung disease Obesity Hypoventilation syndrome is a component, ETHAN. Left hip pain s/p fall from syncope: Pain is improved. X-ray negative for any acute process. Tylenol as needed. Morbid Obesity recommended diet and exercise. DVT prophylaxis: Lovenox GI prophylaxis: Protonix Discharge Planning Not yet cleared for discharge. Rocco Alejandre MD May 22, 2017 11:51
[2017-05-22] MEDS ORDERED: RESP: BUDESONIDE 0.5 MG/2 ML NEB NEB SCH (13:15)
[2017-05-22] MEDS ORDERED: FUROSEMIDE 20 MG/2 ML VIAL IV PUSH ONE (14:15)
[2017-05-22 14:46] LABS: BLOOD GAS BASE EXCESS -2.2 mmol/L (-2-2); BLOOD GAS CARBOXYHEMOGLOBIN 1.3 % (0-4); BLOOD GAS HCO3 22 mmol/L (22-26); BLOOD GAS METHEMOGLOBIN 0.6 % (0-2); BLOOD GAS O2 HGB SATURATION 94 % (90-100); BLOOD GAS OXYGEN CONTENT 17.3 Vol % (12.0-20.0); BLOOD GAS PCO2 33 mmHg (38-42); BLOOD GAS PO2 77 mmHg (61-120); BLOOD GAS TOTAL HGB 13.1 G/DL (12.0-16.0); TEMP CORR TO 98.6
[2017-05-22 14:47] LABS: CRITICAL VALUE NO; DRAW SITE RT RADIAL; FIO2 21 %; NUMBER OF ARTERIAL PUNCTURES 1; STAT YES; ULNAR PULSE PRESENT
--- NOTE | 2017-05-22 14:58 | MB ---
cc: Brianna MADRID M.D. DATE OF CONSULTATION: 05/22/2017 REASON FOR CONSULTATION: HISTORY OF PRESENT ILLNESS: Mr. Almodovar is a 72-year-old white male apparently in good health prior to this admission, although I do not think he had regular medical attention, but stepping off a bus after doing some shopping, he apparently had a syncopal episode. was called by a bystander and he was brought into the hospital. Evaluation up to this point has included carotid artery ultrasounds with no evidence of hemodynamically significant stenosis and some minimal plaques. Hip films showed no acute fracture. A CT angiogram revealed a right lower lobe pneumonia and some hilar adenopathy as well as coronary calcification but no evidence of pulmonary embolism. He also had a head CT which was negative. Subsequent chest x-rays including one yesterday did reveal some improvement but some interstitial changes as well. He has had cultures of the blood which were negative and Legionella and Streptococcal antigens were negative. White count on presentation was 12,000, and it has dropped to 10 and his hemoglobin is 13. Serum chemistries: normal BUN and creatinine. Troponins not trending upward. An echocardiogram which revealed a normal ejection fraction of 50% and some asymmetric hypertrophy. Blood pressure has been a little on the high side, and certainly not low. I was asked to see the patient today because he was having more wheezing. He has been receiving IV fluids and he is positive about 3 liters. The patient is incredibly deaf and is very difficult to communicate with him without screaming loudly, so most of this information is taken from his chart. At present, he really denies shortness of breath. He has had no pain and wonders if he can go home. O2 saturations on room air of 96% to 98%. PAST MEDICAL HISTORY: He denies any significant prior medical history or surgeries. ALLERGIES: NONE KNOWN. MEDICATIONS: No regular medications. SOCIAL HISTORY: Lives alone. Apparently drank very heavily in the past but none at present and he smoked cigarettes up to about ten years ago and has continued to smoke a pipe occasionally. REVIEW OF SYSTEMS: Review of systems is very difficult due to the deafness but there is no apparent chest pain. He denies shortness of breath. There had been no nausea or vomiting. He has been eating well. PHYSICAL EXAMINATION: GENERAL: A very obese white male lying in bed at rest with audible wheezing but in no obvious distress. He is on room air. HEAD, EYES, EARS, NOSE, THROAT: The sclerae are anicteric. The mucous membranes are moist. NECK: The neck veins are not distended, although he has a very large neck. He has diffuse wheezing in both lungs without rhonchi. HEART: Heart rate is irregular and rapid about 100 to 110 and respirations are 24. ABDOMEN: Obese but soft and nontender. EXTREMITIES: He has some chronic venous stasis changes in both legs with a little bit of edema. No calf tenderness. DISCUSSION: Mr. Almodovar presents with what is apparently a longstanding smoking history. He probably has some underlying COPD and he is wheezing diffusely now. He has also had a fair amount of IV fluids since presentation. I will increase his IV steroid dose, start him on albuterol/Atrovent nebulized treatments, check the EKG to see if he is in atrial fibrillation at present and also will give him 20 mg of IV Lasix. Arterial blood gas also ordered with titration of oxygen if necessary. Continue antibiotics for the right lower lobe pneumonia. Try to collect a sputum for culture. Further diagnostic and/or therapeutic intervention will depend on the results of these initial diagnostic studies and his ongoing clinical course. R. MD ADARSH Lemons/BRAULIO /2:28 PM /2:53 PM
--- NOTE | 2017-05-22 16:50 | EKG ---
Date Performed: 05/22/2017 Time Performed: 14:56:32 PTAGE: 72 years EKG: ATRIAL FIBRILLATION ABNORMAL RHYTHM ECG PREVIOUS TRACING : 05/18/2017 18.29 No significant change from previous tracing noted. DOCTOR: Perry Erazo Interpretating Date/Time 05/22/2017 16:49:28
[2017-05-22] MEDS ORDERED: amLODIPine BESYLATE 5 MG TAB PO ONE (17:15)
[2017-05-22] MEDS: methylPREDNISolone SOD SUCC 40 MG/1 ML VIAL IV PUSH SCH ×2 (18:50→18:51)
--- NOTE | 2017-05-22 19:02 | MB ---
cc: JULIANA GARCIA M.D. DATE OF CONSULTATION: 05/22/2017. REASON FOR CONSULTATION: Consult is obtained for atrial fibrillation. HISTORY OF PRESENT ILLNESS: Samuel is a 72-year-old gentleman. According to his nurses, the patient is very hard of hearing and presented with altered mental status. I am not sure if his primary communication problem is hearing and/or some degree of dementia. 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 Therefore a review of systems is unobtainable and remainder of the history is obtained from the chart. He was admitted on 05/18/17 for "possible heat stroke" brought by the ambulance. The patient was noted to state he does not remember what happened but was woken up by a bystander. He denied chest pain or shortness of breath at the time. PAST MEDICAL HISTORY: Per the history of present illness. SOCIAL HISTORY: He denies alcohol use. He smokes a pipe. ALLERGIES: NONE. MEDICATIONS PRIOR TO ADMISSION: 1. Keflex. MEDICATIONS IN THE HOSPITAL: 1. Amlodipine 10 milligrams daily. 2. Carvedilol 3.125 q. 12 hours. 3. Albuterol as needed. 4. Methylprednisolone 40 milligrams IV q. 6 hours. 5. Azithromycin 500 daily. 6. Guaifenesin 600 twice a day. 7. Aspirin 81 milligrams a day. 8. Cefepime IV q. 12 hours. 9. Lovenox 40 subcutaneous q. 24 hours. 10. Pantoprazole 40 daily. PHYSICAL EXAMINATION: VITAL SIGNS: Blood pressure 176/85, pulse 96, respiratory rate 20, temperature 97.9. GENERAL: He is arousable but appears to be oriented x possibly 1 to 2. He does not appear to be focal but possibly dysarthric. NECK: The neck is supple. No jugular venous distention. No bruits. CARDIOVASCULAR EXAM: S1-S2. No murmurs, rubs or gallops notable. LUNGS: He has audible expiratory wheezing just standing by the bedside with prolonged expiratory to inspiratory ratio. ABDOMEN: The abdomen is soft, nontender and nondistended with positive bowel sounds. EXTREMITIES: No lower extremity edema. LABORATORY DATA: White count 12.6, hemoglobin 12.9, hematocrit 38.5, platelet count 189,000. His blood gas: pH 7.43, pCO2 33, pO2 77 on room air. Sodium 138, potassium 3.9, chloride 106, bicarb 20.4, BUN 14, creatinine 1.13. Troponin is 0.06 followed by 0.07 and 0.06. Albumin 2.7. Toxicology is negative. IMAGING STUDIES: He had a hip/pelvis x-ray which showed no acute disease. He had a carotid artery ultrasound which showed no evidence for hemodynamically significant stenosis, minimal plaque apposition left greater than right. CT angiogram of the chest: Right lower lobe pneumonia with right hilar adenopathy, right renal cyst, coronary calcification, no evidence for pulmonary embolus. Head CT shows no acute disease, remote right cerebellar lacunar infarct. There is patchy hyperdensity in the periventricular white matter and basal ganglia most consistent with chronic microvascular ischemic disease. Chest x-ray 05/21/2017 shows slight improvement in the aeration of the right lung base. CARDIOLOGY STUDIES: He had an EKG on 05/22/2017 which shows atrial fibrillation at a rate of 92 beats per minute. Echocardiogram done 05/19/17 shows ejection fraction of 50% to 55%, asymmetric septal hypertrophy, mild to moderate mitral regurgitation. DIAGNOSES: He has the following diagnoses: 1. New-onset atrial fibrillation. 2. 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 3. Hypertension, uncontrolled. 4. Syncopal event. 5. Altered mental status. 6. Pneumonia. 7. Hilar adenopathy. 8. Elevated white count. 9. NSTEMI. 10. Hyperglycemia. DISCUSSION: 1. At this point in time I have advised the nurse to increase his Lovenox to a mg/kg subcutaneous q. 12 hours as the patient has a [id number] score greater than 2, which includes hypertension and previous CVA, age greater than 70. 2. I have also put in a consult for case management to find a surrogate decision-maker as will need to make a decision about long-term anticoagulation. 3. I do not think his troponin elevation is due to a primary obstructive etiology however, obviously I cannot rule this out. Suspect this may be related to hypoxia from the pneumonia and/or hypertension with increased demand. He tells me he is not having chest pain now. 4. I do not think it is a good idea to have him on Coreg given his severe wheezing that I can hear at the bedside without even using the stethoscope; therefore, I would not recommend this. 5. I think it is reasonable to add amlodipine 10 given his uncontrolled blood pressure as well as to help with ischemia. 6. I agree with aspirin 81 milligrams daily in the short-term. 7. Will also get a neurology consult to further evaluate the patient's mental status. I am not sure if his issues are more hearing-related and/or related to dementia. If the patient has no neurologic contraindications and he and/or his surrogate decision-maker agree, I do think left heart catheterization is medically necessary due to NSTEMI with troponin elevation, multiple cardiac risk factors but this will require neurologic clearance and again consent from the patient and/or his surrogate decision-maker. MD RAQUEL Cuadra/BRAULIO /6:18 PM /6:48 PM
[2017-05-22] MEDS ORDERED: CARVEDILOL 3.125 MG TAB PO SCH (21:00)
[2017-05-23] VITALS (9 sets, daily range): BP systolic 123–169; BP diastolic 54–94; PULSE 85–108; RESP 15–20; TEMP 97.2–98.4; O2SAT 92–96
[2017-05-23] MEDS: RESP: ALBUTEROL 2.5 MG/IPRATROPIUM 0.5 MG NEB (SCH) NEB ×6 (00:51→20:26)
[2017-05-23] MEDS: methylPREDNISolone SOD SUCC 40 MG/1 ML VIAL IV PUSH SCH ×5 (01:04→23:53)
[2017-05-23] MEDS: AZITHROMYCIN 250 MG TAB PO SCH (08:36)
[2017-05-23] MEDS: PANTOPRAZOLE SOD 40 MG DELAYED RELEASE TAB PO SCH (08:36)
[2017-05-23] MEDS: SODIUM CHLORIDE 0.9% FLUSH 10 ML FLUSH IV FLUSH SCH ×2 (08:37→23:53)
[2017-05-23] MEDS: ENOXAPARIN SODIUM 40 MG/0.4 ML SYRINGE SQ SCH (08:37)
[2017-05-23] MEDS: ASPIRIN EC 81 MG TABEC PO SCH (08:37)
[2017-05-23] MEDS: guaiFENesin E.R. 600 MG TAB PO SCH ×2 (08:37→23:53)
--- NOTE | 2017-05-23 09:33 | RADRPT ---
EXAM DATE/TIME: 05/23/2017 07:58 [facility] COMPARISON: CHEST PA & LAT, May 21, 2017, 9:58. INDICATIONS : Short of breath, no chest pain MEDICAL HISTORY : None. SURGICAL HISTORY : None. ENCOUNTER: Subsequent ACUITY: 4 - 6 days PAIN SCORE: 0/10 LOCATION: Bilateral chest FINDINGS: Mild hazy perihilar and basilar parenchymal opacities are slightly improved. Cardiomediastinal contou rs are stable with mild cardiac enlargement. CONCLUSION: Slight improvement in aeration Jarek Durham MD on May 23, 2017 at 9:29 Board Certified Radiologist. This report was verified electronically.
[2017-05-23] MEDS: CEFEPIME INJ 1,000 MG in SODIUM CHLORIDE 0.9% INJ 100 ML IV SCH ×2 (10:00→23:54)
--- NOTE | 2017-05-23 11:23 | HHI.PR ---
Subjective Remarks This is pleasant 72 y/o male with status post syncope and fall, has Pneumonia, extremely hard of hearing Denies any fevers/chills, cough, chest pain, or shortness of breath. needs at least three days for management for Pneumonia IV treatment, today on new CXR continue with some infiltrate but improving slowly, he continue with some shortness of breath, optimized respiratory therapy. 05/22: Seen in his bedroom, he states he smoked Pipe for a long time, probable diagnosis more related to COPD versus Interstitial lung disease or both, also Obesity Hypoventilation syndrome and ETHAN component will get consult with account installation specialist. 05/23: Seen in his bedroom no nausea, vomit or diarrhea, seen by account installation specialist recommended energy specialist, also as per Cardiology CHADS 2VASc score over 2 Lovenox to therapeutic and asked for consulted Neurology specialist, discussed with nurse Rimma Phillips patient stable. Objective Vital Signs Date Time Temp Pulse Resp B/P Pulse Ox O2 Delivery O2 Flow Rate FiO2 05/23/17 08:00 97.5 100 17 138/80 96 05/23/17 07:51 96 05/23/17 04:00 97.3 101 16 144/65 94 05/23/17 00:06 85 05/23/17 00:00 97.2 108 20 169/94 95 05/22/17 22:56 95 05/22/17 20:00 97.4 96 20 119/76 98 05/22/17 16:40 97.9 96 20 176/85 99 05/22/17 12:04 98.1 89 21 148/92 96 I/O 05/22/17 05/22/17 05/22/17 05/23/17 05/23/17 05/23/17 06:59 14:59 22:59 06:59 14:59 22:59 Intake Total 1333 ml 100 ml Balance 1333 ml 100 ml IV Total 1333 ml 100 ml # Voids 9 # Bowel Movements 1 Result Diagram: 05/20/1761305/20/17613 Imaging Last Impressions Chest X-Ray 05/23/17 0800 Signed Impressions: Service Date/Time: Tuesday, May 23, 2017 07:58 - CONCLUSION: Slight improvement in aeration Jarek Durham MD Head CT 05/18/171810 Signed Impressions: Service Date/Time: Thursday, May 18, 2017 18:37 - CONCLUSION: No acute disease. Enrrique Summers MD Hip and Pelvis X-Ray 05/18/17 0000 Signed Impressions: Service Date/Time: Thursday, May 18, 2017 22:39 - CONCLUSION: No acute disease. Enrrique Summers MD Carotid Artery Ultrasound 05/18/17 0000 Signed Impressions: Service Date/Time: Thursday, May 18, 2017 20:44 - CONCLUSION: 1. No evidence for hemodynamically significant stenosis. Minimal plaque deposition left greater than right. Enrrique Summers MD CT Angiography 05/18/17 0000 Signed Impressions: Service Date/Time: Thursday, May 18, 2017 21:35 - CONCLUSION: 1. Right lower lobe pneumonia with right hilar adenopathy. 2. Right renal cyst. 3. Coronary calcification. 4. No evidence for pulmonary embolus Enrrique Summers MD Procedures None Other Results Laboratory Tests Test 05/19/17 05/20/17 05/22/17 05:02 06:14 14:36 Total Creatine Kinase 262 U/L Troponin I 0.06 NG/ML White Blood Count 10.8 TH/MM3 Red Blood Count 4.14 MIL/MM3 Hemoglobin 13.0 GM/DL Hematocrit 38.2 % Mean Corpuscular Volume 92.3 FL Mean Corpuscular Hemoglobin 31.4 PG Mean Corpuscular Hemoglobin 34.0 % Concent Red Cell Distribution Width 14.6 % Platelet Count 199 TH/MM3 Mean Platelet Volume 8.8 FL Neutrophils (%) (Auto) 74.8 % Lymphocytes (%) (Auto) 14.1 % Monocytes (%) (Auto) 7.9 % Eosinophils (%) (Auto) 2.3 % Basophils (%) (Auto) 0.9 % Neutrophils # (Auto) 8.1 TH/MM3 Lymphocytes # (Auto) 1.5 TH/MM3 Monocytes # (Auto) 0.9 TH/MM3 Eosinophils # (Auto) 0.2 TH/MM3 Basophils # (Auto) 0.1 TH/MM3 CBC Comment DIFF FINAL Differential Comment Sodium Level 138 MEQ/L Potassium Level 3.9 MEQ/L Chloride Level 106 MEQ/L Carbon Dioxide Level 20.9 MEQ/L Anion Gap 11 MEQ/L Blood Urea Nitrogen 14 MG/DL Creatinine 1.13 MG/DL Estimat Glomerular Filtration 63 ML/MIN Rate Random Glucose 108 MG/DL Calcium Level 8.3 MG/DL Blood Gas Puncture Site RT RADIAL Blood Gas Patient Temperature 98.6 Blood Gas HCO3 22 mmol/L Blood Gas Base Excess -2.2 mmol/L Blood Gas Oxygen Saturation 94 % Arterial Blood pH 7.43 Arterial Blood Partial 33 mmHg Pressure CO2 Arterial Blood Partial 77 mmHg Pressure O2 Arterial Blood Oxygen Content 17.3 Vol % Arterial Blood 1.3 % Carboxyhemoglobin Arterial Blood Methemoglobin 0.6 % Blood Gas Hemoglobin 13.1 G/DL Blood Gas Inspired Oxygen 21 % Objective Remarks GENERAL: Morbid Obese patient, no acute distress. Extremely hard of hearing, reads lips. SKIN: Warm and dry. No rash. HEENT: Normocephalic. Atraumatic.Pupils equal and round. Mucous membranes pink and moist. NECK: Supple. Trachea midline. CARDIOVASCULAR: Irregular rate and rhythm. no Murmur. RESPIRATORY: Decreased breath sounds bilateral no wheezing or crackles. GASTROINTESTINAL: Abdomen soft, non-tender, nondistended. Normoactive bowel sounds x4. MUSCULOSKELETAL: No obvious deformities. Extremities without clubbing, cyanosis , or edema. NEUROLOGICAL: Awake and alert. No obvious cranial nerve deficits. Motor grossly within normal limits. Normal speech. Medications and IVs Current Medications Medications (Trade) Dose Ordered Sig/Ana Route Start Time Stop Time Status Last Admin (NS Flush) 2 ml UNSCH PRN IV FLUSH 05/18/17 20:30 (NS Flush) 2 ml BID IV FLUSH 05/18/17 21:00 05/23/17 08:37 (Narcan Inj) 0.4 mg UNSCH PRN IV 05/18/17 20:30 (Lovenox Inj) 40 mg Q24H SQ 05/19/17 09:00 05/23/17 08:37 (Protonix) 40 mg DAILY PO 05/19/17 09:00 05/23/17 08:36 Acetaminophen 650 mg 650 mg Q4H PRN PO 05/19/17 07:30 (Maxipime Inj/NS Inj) 100 ml @ 200 mls/hr Q12H IV 05/19/17 10:00 05/22/17 22:18 (Ecotrin Ec) 81 mg DAILY PO 05/21/17 09:00 05/23/17 08:37 (Mucinex Er) 600 mg BID PO 05/21/17 13:30 05/23/17 08:37 (Zithromax) 500 mg DAILY PO 05/22/17 09:00 05/23/17 08:36 (SoluMEDROL INJ) 40 mg Q6HR IV PUSH 05/22/17 13:15 05/23/17 06:27 (Norvasc) 10 mg DAILY PO 05/23/17 09:00 05/23/17 08:37 A/P Assessment and Plan 72-year-old male with past medical history of OA who presented after syncopal episode Syncope: Likely secondary to acute infection. Carotid ultrasound no significant stenosis. Troponin flat, nonischemic 3. EKG with sinus dysrhythmia was slightly tachycardic rate. Mild dehydration noted on labs at admission. Echocardiogram EF 50-55%. Treat pneumonia as below. Monitor on telemetry. PT eval. IVF. Removed IV fluids yesterday but remembered to the Nurse. Atrial Fibrillation on Lovenox 1 mg per Kilogram every 12 hours. discontinued Coreg by energy specialist. Pneumonia with sepsis: Tachycardia, tachypnea, leukocytosis. Chest x-ray and CT show right lower lobe pneumonia with hilar adenopathy. IV antibiotics with azithromycin and cefepime. Cultures were negative, Swallow eval recommended Mechanical soft diet, not improving his respiratory status, was consulted to account installation specialist, recommended Repair Operator consult continued present care. he was chronic smoker, COPD versus Interstitial Lung disease Obesity Hypoventilation syndrome is a component, ETHAN. Left hip pain s/p fall from syncope: Pain is improved. X-ray negative for any acute process. Tylenol as needed. Morbid Obesity recommended diet and exercise. Hypertension Uncontrolled better control. DVT prophylaxis: Lovenox GI prophylaxis: Protonix Speech Therapy for Cognitive Evaluation. Discharge Planning Not yet cleared for discharge. Rocco Alejandre MD May 23, 2017 11:23
--- NOTE | 2017-05-23 13:34 | MB ---
cc: JACQUI BURNS M.D. DATE OF CONSULTATION: 05/23/2017 REASON FOR CONSULTATION The patient is seen in neurological consultation. He is a 72-year-old seen because of altered mental status. HISTORY OF PRESENT ILLNESS The patient has been in the hospital since the . He came in with some possible syncopal episode. The history is still kind of sketchy. In the hospital he has had some evaluation and now he has new onset atrial fibrillation. CT brain and carotid ultrasound were unremarkable. PAST MEDICAL HISTORY His medical history is not very well known. Apparently he was not taking much medications. He has severe hearing loss and information is limited. NEUROLOGICAL EXAMINATION The neurological exam shows the patient to be alert and pleasant. 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 He knew when he came to the hospital. He is moving all four extremities grossly equally. Ocular movements and visual al are full. Reflexes present, 1+ including response at the ankles. Plantar responses were flexor. LABORATORY The chemistry data is largely unremarkable. On admission his glucose was 115, calcium 8.0. TSH is normal. Toxicology was negative. Urinalysis is negative. CBC with initial white count 12.6, hemoglobin 12.9, platelets 189. ASSESSMENT Encephalopathy. Details are sketchy. The patient wants to go home. He also has apparent new onset atrial fibrillation. RECOMMENDATIONS The completion evaluation is limited because of his hearing impairment which is severe. Neurologic-spivey I do not have any problems against anticoagulation as sought by the foil wrapper. I would like to have an EEG and possibly an MRI of brain without contrast on him. He subsequently can be followed as an outpatient for further neurologic status characterization. Family or friends input will be helpful to discern whether or not there is some cognitive impairment. Thank you for asking us to assist in his care. Jacqui Burns MD OFC/BT /1:13 PM /1:32 PM
[2017-05-23] MEDS ORDERED: ENOXAPARIN SODIUM 120 MG/0.8 ML SYRINGE SQ ONE (15:45)
--- NOTE | 2017-05-23 15:47 | PD.CARD.PN ---
Subjective Subjective Remarks alert in nad Objective Vital Signs / I&O Vital Signs Date Time Temp Pulse Resp B/P Pulse Ox O2 Delivery O2 Flow Rate FiO2 05/23/17 12:07 97.7 106 15 164/82 92 05/23/17 08:00 97.5 100 17 138/80 96 05/23/17 07:51 96 05/23/17 04:00 97.3 101 16 144/65 94 05/23/17 00:06 85 05/23/17 00:00 97.2 108 20 169/94 95 05/22/17 22:56 95 05/22/17 20:00 97.4 96 20 119/76 98 05/22/17 16:40 97.9 96 20 176/85 99 I/O 05/22/17 05/22/17 05/22/17 05/23/17 05/23/17 05/23/17 07:00 15:00 23:00 07:00 15:00 23:00 Intake Total 1333 ml 100 ml Balance 1333 ml 100 ml IV Total 1333 ml 100 ml # Voids 9 # Bowel Movements 1 Laboratory GENERAL: SKIN: Warm and dry. HEAD: Normocephalic. EYES: No scleral icterus. No injection or drainage. NECK: Supple, trachea midline. No JVD or lymphadenopathy. CARDIOVASCULAR: Regular rate and rhythm without murmurs, gallops, or rubs. RESPIRATORY: Breath sounds equal bilaterally. No accessory muscle use. GASTROINTESTINAL: Abdomen soft, non-tender, nondistended. MUSCULOSKELETAL: No cyanosis, or edema. BACK: Nontender without obvious deformity. No CVA tenderness. Assessment and Plan Problem List: (1) Atrial fibrillation (2) Troponin level elevated Assessment and Plan 1.) afib - rate controlled, change lovenox to 120 mg sq bid, start coumadin 5 mg qd for inr =2.0-3.0 due to CHADS score= 3(htn, h/o cva, age >70) Problem Qualifiers (1) Atrial fibrillation: Qualified Code: I48.91 - Atrial fibrillation, unspecified type Keshav Dixon MD May 23, 2017 15:46
--- NOTE | 2017-05-23 18:04 | RADRPT ---
EXAM DATE/TIME: 05/23/2017 17:05 [facility] COMPARISON: CT BRAIN W/O CONTRAST, May 18, 2017, 18:37. INDICATIONS : Post syncope and fall. MEDICAL HISTORY : A-fib SURGICAL HISTORY : None. ENCOUNTER: Subsequent ACUITY: 4-6 days PAIN SCORE: 0/10 LOCATION: cranial TECHNIQUE: Multiplanar, multisequence MRI of the brain was performed without contrast. FINDINGS: CEREBRUM: The ventricles are normal for age. Cerebral atrophy. Remote right lacunar and right cerebellar infarc ts. No evidence of midline shift, mass lesion, hemorrhage or acute infarction. No extraaxial fluid collections are seen. The pituitary gland and suprasellar cistern are normal in configuration. WHITE MATTER: Scattered foci of bright T2 signal abnormalities are seen in the white matter. POSTERIOR FOSSA: The cerebellum and brainstem are intact. The 4th ventricle is midline. The cerebellopontine angle is unremarkable. The cerebellar tonsils are normal in position. DIFFUSION IMAGING: No focal areas of restricted diffusion are seen. No evidence of acute infarction. EXTRACRANIAL: The visualized portions of the orbits and paranasal sinuses are unremarkable. CONCLUSION: 1. Cerebral atrophy and chronic ischemic small vessel vasculopathies. 2. Old infarcts. Velasquez Ramirez MD on May 23, 2017 at 18:01 Board Certified Radiologist. This report was verified electronically.
[2017-05-24] VITALS (8 sets, daily range): BP systolic 125–158; BP diastolic 60–79; PULSE 89–107; RESP 16–20; TEMP 97.3–98.2; O2SAT 94–96
[2017-05-24] MEDS: RESP: ALBUTEROL 2.5 MG/IPRATROPIUM 0.5 MG NEB (SCH) NEB ×6 (01:13→22:33)
[2017-05-24] MEDS: ENOXAPARIN SODIUM 120 MG/0.8 ML SYRINGE SQ SCH ×2 (05:00→16:08)
[2017-05-24] MEDS: methylPREDNISolone SOD SUCC 40 MG/1 ML VIAL IV PUSH SCH ×4 (06:08→23:38)
[2017-05-24] MEDS: AZITHROMYCIN 250 MG TAB PO SCH (10:06)
[2017-05-24] MEDS: guaiFENesin E.R. 600 MG TAB PO SCH ×2 (10:06→23:32)
[2017-05-24] MEDS: PANTOPRAZOLE SOD 40 MG DELAYED RELEASE TAB PO SCH (10:06)
[2017-05-24] MEDS: SODIUM CHLORIDE 0.9% FLUSH 10 ML FLUSH IV FLUSH SCH ×2 (10:08→23:32)
--- NOTE | 2017-05-24 10:21 | HHI.PR ---
Subjective Remarks This is pleasant 72 y/o male with status post syncope and fall, has Pneumonia, extremely hard of hearing Denies any fevers/chills, cough, chest pain, or shortness of breath. needs at least three days for management for Pneumonia IV treatment, today on new CXR continue with some infiltrate but improving slowly, he continue with some shortness of breath, optimized respiratory therapy. 05/22: Seen in his bedroom, he states he smoked Pipe for a long time, probable diagnosis more related to COPD versus Interstitial lung disease or both, also Obesity Hypoventilation syndrome and ETHAN component will get consult with patient service specialist. 05/23: Seen by patient service specialist recommended injection specialist, also as per Cardiology CHADS 2VASc score over 2 Lovenox to therapeutic and asked for consulted Neurology specialist. 05/24: Stable seen in his bedroom continue saying he wants to go home, seen by Neurology specialist recommended EEG and MRI of the brain found old infarcts. at this time no nausea, vomit or diarrhea improving Respiratory status. Objective Vital Signs Date Time Temp Pulse Resp B/P Pulse Ox O2 Delivery O2 Flow Rate FiO2 05/24/17 08:00 97.3 96 16 125/76 95 05/24/17 04:00 97.4 103 20 158/79 96 05/24/17 00:00 98.2 107 20 129/67 95 05/23/17 20:26 93 05/23/17 20:00 98.4 100 20 141/65 96 05/23/17 16:00 97.5 88 16 123/54 96 05/23/17 12:07 97.7 106 15 164/82 92 I/O 05/23/17 05/23/17 05/23/17 05/24/17 05/24/17 05/24/17 07:00 15:00 23:00 07:00 15:00 23:00 Intake Total 100 ml 1080 ml Balance 100 ml 1080 ml Intake Oral 1080 ml IV Total 100 ml # Voids 5 Result Diagram: 05/20/17 0605/20/17 0614 Imaging Last Impressions Chest X-Ray 05/23/17 0800 Signed Impressions: Service Date/Time: Tuesday, May 23, 2017 07:58 - CONCLUSION: Slight improvement in aeration Jarek Durham MD Brain MRI 05/23/17 0000 Signed Impressions: Service Date/Time: Tuesday, May 23, 2017 17:05 - CONCLUSION: 1. Cerebral atrophy and chronic ischemic small vessel vasculopathies. 2. Old infarcts. Velasquez Ramirez MD Head CT 05/18/[id number] Signed Impressions: Service Date/Time: Thursday, May 18, 2017 18:37 - CONCLUSION: No acute disease. Enrrique Summers MD Hip and Pelvis X-Ray 05/18/17 0000 Signed Impressions: Service Date/Time: Thursday, May 18, 2017 22:39 - CONCLUSION: No acute disease. Enrrique Summers MD Carotid Artery Ultrasound 05/18/17 0000 Signed Impressions: Service Date/Time: Thursday, May 18, 2017 20:44 - CONCLUSION: 1. No evidence for hemodynamically significant stenosis. Minimal plaque deposition left greater than right. Enrrique Summers MD CT Angiography 05/18/17 0000 Signed Impressions: Service Date/Time: Thursday, May 18, 2017 21:35 - CONCLUSION: 1. Right lower lobe pneumonia with right hilar adenopathy. 2. Right renal cyst. 3. Coronary calcification. 4. No evidence for pulmonary embolus Enrrique Summers MD Procedures None Other Results Laboratory Tests Test 05/20/17 05/22/17 06:14 14:36 White Blood Count 10.8 TH/MM3 Red Blood Count 4.14 MIL/MM3 Hemoglobin 13.0 GM/DL Hematocrit 38.2 % Mean Corpuscular Volume 92.3 FL Mean Corpuscular Hemoglobin 31.4 PG Mean Corpuscular Hemoglobin 34.0 % Concent Red Cell Distribution Width 14.6 % Platelet Count 199 TH/MM3 Mean Platelet Volume 8.8 FL Neutrophils (%) (Auto) 74.8 % Lymphocytes (%) (Auto) 14.1 % Monocytes (%) (Auto) 7.9 % Eosinophils (%) (Auto) 2.3 % Basophils (%) (Auto) 0.9 % Neutrophils # (Auto) 8.1 TH/MM3 Lymphocytes # (Auto) 1.5 TH/MM3 Monocytes # (Auto) 0.9 TH/MM3 Eosinophils # (Auto) 0.2 TH/MM3 Basophils # (Auto) 0.1 TH/MM3 CBC Comment DIFF FINAL Differential Comment Sodium Level 138 MEQ/L Potassium Level 3.9 MEQ/L Chloride Level 106 MEQ/L Carbon Dioxide Level 20.9 MEQ/L Anion Gap 11 MEQ/L Blood Urea Nitrogen 14 MG/DL Creatinine 1.13 MG/DL Estimat Glomerular Filtration 63 ML/MIN Rate Random Glucose 108 MG/DL Calcium Level 8.3 MG/DL Blood Gas Puncture Site RT RADIAL Blood Gas Patient Temperature 98.6 Blood Gas HCO3 22 mmol/L Blood Gas Base Excess -2.2 mmol/L Blood Gas Oxygen Saturation 94 % Arterial Blood pH 7.43 Arterial Blood Partial 33 mmHg Pressure CO2 Arterial Blood Partial 77 mmHg Pressure O2 Arterial Blood Oxygen Content 17.3 Vol % Arterial Blood 1.3 % Carboxyhemoglobin Arterial Blood Methemoglobin 0.6 % Blood Gas Hemoglobin 13.1 G/DL Blood Gas Inspired Oxygen 21 % Objective Remarks GENERAL: Morbid Obese patient, no acute distress. Extremely hard of hearing, reads lips. SKIN: Warm and dry. No rash. HEENT: Normocephalic. Atraumatic.Pupils equal and round. Mucous membranes pink and moist. NECK: Supple. Trachea midline. CARDIOVASCULAR: Irregular rate and rhythm. no Murmur. RESPIRATORY: Decreased breath sounds bilateral, has Wheezing when stands up and gets some activity, no crackles. GASTROINTESTINAL: Abdomen soft, non-tender, nondistended. Normoactive bowel sounds x4. MUSCULOSKELETAL: No obvious deformities. Extremities without clubbing, cyanosis , or edema. NEUROLOGICAL: Awake and alert. No obvious cranial nerve deficits. Motor grossly within normal limits. Normal speech. Medications and IVs Current Medications Medications (Trade) Dose Ordered Sig/Ana Route Start Time Stop Time Status Last Admin (NS Flush) 2 ml UNSCH PRN IV FLUSH 05/18/17 20:30 (NS Flush) 2 ml BID IV FLUSH 05/18/17 21:00 05/24/17 10:08 (Narcan Inj) 0.4 mg UNSCH PRN IV 05/18/17 20:30 (Protonix) 40 mg DAILY PO 05/19/17 09:00 05/24/17 10:06 Acetaminophen 650 mg 650 mg Q4H PRN PO 05/19/17 07:30 (Maxipime Inj/NS Inj) 100 ml @ 200 mls/hr Q12H IV 05/19/17 10:00 05/23/17 23:54 (Mucinex Er) 600 mg BID PO 05/21/17 13:30 05/24/17 10:06 (Zithromax) 500 mg DAILY PO 05/22/17 09:00 05/24/17 10:06 (SoluMEDROL INJ) 40 mg Q6HR IV PUSH 05/22/17 13:15 05/24/17 06:08 (Norvasc) 10 mg DAILY PO 05/23/17 09:00 05/24/17 10:06 (Coumadin) 5 mg DAILY@1600 PO 05/23/17 16:00 UNV (Lovenox Inj) 120 mg Q12H SQ 05/24/17 05:00 A/P Assessment and Plan 72-year-old male with past medical history of OA who presented after syncopal episode Syncope: Likely secondary to acute infection. Carotid ultrasound no significant stenosis. Troponin flat, nonischemic 3. EKG with sinus dysrhythmia was slightly tachycardic rate. Mild dehydration noted on labs at admission. Echocardiogram EF 50-55%. Treat pneumonia as below. Monitor on telemetry. PT eval performed okay to Go home. Atrial Fibrillation on Lovenox 1 mg per Kilogram every 12 hours. discontinued Coreg by injection specialist. Warfarin started INR 1.1 Pneumonia with sepsis: Tachycardia, tachypnea, leukocytosis. Chest x-ray and CT show right lower lobe pneumonia with hilar adenopathy. IV antibiotics with azithromycin and cefepime. Cultures were negative, Swallow eval recommended Mechanical soft diet, not improving his respiratory status, was consulted to patient service specialist, recommended Electric Motor Tester Assembler consult continued present care. he was chronic smoker, COPD versus Interstitial Lung disease Obesity Hypoventilation syndrome is a component, ETHAN. continue Bronchodilator, Mucolytic and incentive spirometry. Steroids. Left hip pain s/p fall from syncope: Pain is improved. X-ray negative for any acute process. Tylenol as needed. Morbid Obesity recommended diet and exercise. Hypertension Controlled. DVT prophylaxis: Lovenox and Warfarin INR 1.1 GI prophylaxis: Protonix Speech Therapy for Cognitive Evaluation performed and followed by Speech Therapy. Discharge Planning Awaiting final by Neurology, injection specialist and patient service specialist for discharge. Rocco Alejandre MD May 24, 2017 10:21
[2017-05-24 10:30] LABS: INTERNATIONAL NORMALIZED RATIO 1.1 RATIO; PROTHROMBIN TIME - PATIENT 11.9 SEC (9.8-11.6)
[2017-05-24 10:39] LABS: HEMATOCRIT 38.8 % (39.0-51.0); MEAN CORPUSCULAR HEMOGLOBIN 30.8 PG (27.0-34.0); MEAN CORPUSCULAR HGB CONC 33.5 % (32.0-36.0); PLATELET COUNT 369 TH/MM3 (150-450); RED BLOOD COUNT 4.22 MIL/MM3 (4.50-5.90); RED CELL DISTRIBUTION WIDTH 14.5 % (11.6-17.2); REVIEW FLAG FINAL; WHITE BLOOD COUNT 16.3 TH/MM3 (4.0-11.0)
[2017-05-24] MEDS: CEFEPIME INJ 1,000 MG in SODIUM CHLORIDE 0.9% INJ 100 ML IV SCH ×2 (10:59→23:31)
--- NOTE | 2017-05-24 15:10 | PD.CARD.PN ---
Subjective Subjective Remarks alert in nad Objective Vital Signs / I&O Vital Signs Date Time Temp Pulse Resp B/P Pulse Ox O2 Delivery O2 Flow Rate FiO2 05/24/17 12:00 97.3 105 17 128/60 96 05/24/17 08:00 97.3 96 16 125/76 95 05/24/17 04:00 97.4 103 20 158/79 96 05/24/17 00:00 98.2 107 20 129/67 95 05/23/17 20:26 93 05/23/17 20:00 98.4 100 20 141/65 96 05/23/17 16:00 97.5 88 16 123/54 96 I/O 05/23/17 05/23/17 05/23/17 05/24/17 05/24/17 05/24/17 07:00 15:00 23:00 07:00 15:00 23:00 Intake Total 100 ml 1080 ml 600 ml Output Total 125 ml Balance 100 ml 1080 ml 475 ml Intake Oral 1080 ml 600 ml IV Total 100 ml Output Urine Total 125 ml # Voids 5 3 # Bowel Movements 2 Physical Exam GENERAL: SKIN: Warm and dry. HEAD: Normocephalic. EYES: No scleral icterus. No injection or drainage. NECK: Supple, trachea midline. No JVD or lymphadenopathy. CARDIOVASCULAR: Regular rate and rhythm without murmurs, gallops, or rubs. RESPIRATORY: Breath sounds equal bilaterally. No accessory muscle use. GASTROINTESTINAL: Abdomen soft, non-tender, nondistended. MUSCULOSKELETAL: No cyanosis, or edema. BACK: Nontender without obvious deformity. No CVA tenderness. Laboratory Laboratory Tests Test 05/24/17 09:07 White Blood Count 16.3 TH/MM3 Red Blood Count 4.22 MIL/MM3 Hemoglobin 13.0 GM/DL Hematocrit 38.8 % Mean Corpuscular Volume 92.0 FL Mean Corpuscular Hemoglobin 30.8 PG Mean Corpuscular Hemoglobin 33.5 % Concent Red Cell Distribution Width 14.5 % Platelet Count 369 TH/MM3 Mean Platelet Volume 9.0 FL Prothrombin Time 11.9 SEC Prothromb Time International 1.1 RATIO Ratio Vitamin B12 Level 203 PG/ML Assessment and Plan Problem List: (1) Atrial fibrillation (2) Troponin level elevated Assessment and Plan 1.) afib - rate controlled, change lovenox to 120 mg sq bid, start coumadin 5 mg qd for inr =2.0-3.0 due to CHADS score= 3(htn, h/o cva, age >70) Problem Qualifiers (1) Atrial fibrillation: Qualified Code: I48.91 - Atrial fibrillation, unspecified type Keshav Dixon MD May 24, 2017 15:10
[2017-05-24] MEDS: WARFARIN SOD 5 MG TAB PO SCH (16:06)
--- NOTE | 2017-05-24 21:27 | HHI.PR ---
Review/Management Daily Summary 05/24 doing well seen this early am and anxious to go home neuro spivey seems baseline probably ok to go home with [facility] eeg pending anticoag in course per cardio could follow in the office in 2-3 weeks Subjective Subjective Comments No acute events reported No headache Active Medications Current Medications Medications (Trade) Dose Ordered Sig/Ana Route Start Time Stop Time Status Last Admin (NS Flush) 2 ml UNSCH PRN IV FLUSH 05/18/17 20:30 (NS Flush) 2 ml BID IV FLUSH 05/18/17 21:00 05/24/17 10:08 (Narcan Inj) 0.4 mg UNSCH PRN IV 05/18/17 20:30 (Protonix) 40 mg DAILY PO 05/19/17 09:00 05/24/17 10:06 Acetaminophen 650 mg 650 mg Q4H PRN PO 05/19/17 07:30 (Maxipime Inj/NS Inj) 100 ml @ 200 mls/hr Q12H IV 05/19/17 10:00 05/24/17 10:59 (Mucinex Er) 600 mg BID PO 05/21/17 13:30 05/24/17 10:06 (Zithromax) 500 mg DAILY PO 05/22/17 09:00 05/24/17 10:06 (SoluMEDROL INJ) 40 mg Q6HR IV PUSH 05/22/17 13:15 05/24/17 18:19 (Norvasc) 10 mg DAILY PO 05/23/17 09:00 05/24/17 10:06 (Coumadin) 5 mg DAILY@1600 PO 05/24/17 16:00 05/24/17 16:06 (Lovenox Inj) 120 mg Q12H SQ 05/24/17 05:00 05/24/17 16:08 Allergies Allergies Coded Allergies No Known Allergies (Unverified05/18/17) Exam I&O / VS 05/23/17 05/23/17 05/24/17 15:00 23:00 07:00 Intake Total 100 ml 1080 ml Balance 100 ml 1080 ml Intake Oral 1080 ml IV Total 100 ml # Voids 5 Vital Signs Date Time Temp Pulse Resp B/P Pulse Ox O2 Delivery O2 Flow Rate FiO2 05/24/17 16:00 97.6 106 16 143/74 95 05/24/17 12:00 97.3 105 17 128/60 96 05/24/17 08:00 97.3 96 16 125/76 95 05/24/17 04:00 97.4 103 20 158/79 96 05/24/17 00:00 98.2 107 20 129/67 95 Objective Radiology Results Last 48 hours Impressions Chest X-Ray 05/23/17 0800 Signed Impressions: Service Date/Time: Tuesday, May 23, 2017 07:58 - CONCLUSION: Slight improvement in aeration Jarek Durham MD Brain MRI 05/23/17 0000 Signed Impressions: Service Date/Time: Tuesday, May 23, 2017 17:05 - CONCLUSION: 1. Cerebral atrophy and chronic ischemic small vessel vasculopathies. 2. Old infarcts. Velasquez Ramirez MD Micro and Labs Laboratory Tests Test 05/24/17 09:07 White Blood Count 16.3 Red Blood Count 4.22 Hemoglobin 13.0 Hematocrit 38.8 Mean Corpuscular Volume 92.0 Mean Corpuscular Hemoglobin 30.8 Mean Corpuscular Hemoglobin 33.5 Concent Red Cell Distribution Width 14.5 Platelet Count 369 Mean Platelet Volume 9.0 Prothrombin Time 11.9 Prothromb Time International 1.1 Ratio Vitamin B12 Level 203 Tiffany Duncan MD May 24, 2017 21:27
[2017-05-25] VITALS (10 sets, daily range): BP systolic 127–159; BP diastolic 65–91; PULSE 88–108; RESP 18–20; TEMP 97.3–98.1; O2SAT 94–98
[2017-05-25] MEDS: RESP: ALBUTEROL 2.5 MG/IPRATROPIUM 0.5 MG NEB (SCH) NEB ×6 (04:00→20:50)
[2017-05-25] MEDS: ENOXAPARIN SODIUM 120 MG/0.8 ML SYRINGE SQ SCH ×2 (05:33→16:08)
[2017-05-25] MEDS: methylPREDNISolone SOD SUCC 40 MG/1 ML VIAL IV PUSH SCH ×3 (05:34→18:07)
[2017-05-25] MEDS: guaiFENesin E.R. 600 MG TAB PO SCH ×2 (08:14→21:37)
[2017-05-25] MEDS: PANTOPRAZOLE SOD 40 MG DELAYED RELEASE TAB PO SCH (08:15)
[2017-05-25] MEDS: SODIUM CHLORIDE 0.9% FLUSH 10 ML FLUSH IV FLUSH SCH ×2 (08:15→21:49)
[2017-05-25] MEDS: AZITHROMYCIN 250 MG TAB PO SCH (08:15)
[2017-05-25] MEDS: CEFEPIME INJ 1,000 MG in SODIUM CHLORIDE 0.9% INJ 100 ML IV SCH ×2 (08:17→21:38)
--- NOTE | 2017-05-25 08:31 | MG ---
cc: CHIVO LUX MD Lab No: [id number] Date: 05/24/2017 Age: 72 Sex: M Race: __ DATE OF 1945 DESCRIPTION 3-4 Hz posterior rhythm, 20-50 microvolts. Paroxysmal generalized delta bursts, posterior slow theta frequencies, posterior rhythm incrementing up to 5-6 Hz, 7 Hz during arousal, other generalized slowing and then the appearance of some spindles. Reduced driving with photic stimulation. Reasonable EEG variability reactivity. Single lead EKG showing irregularly irregular rhythm. INTERPRETATION Mild encephalopathy in sleep state. Cardiac arrhythmia. Clinical correlation. MD HALINA Dalal/SASHA /7:56 AM /8:22 AM
[2017-05-25 08:48] LABS: HEMATOCRIT 38.4 % (39.0-51.0); MEAN CELL VOLUME 92.4 FL (80.0-100.0); MEAN CORPUSCULAR HEMOGLOBIN 30.4 PG (27.0-34.0); MEAN CORPUSCULAR HGB CONC 32.9 % (32.0-36.0); PLATELET COUNT 318 TH/MM3 (150-450); RED BLOOD COUNT 4.16 MIL/MM3 (4.50-5.90); RED CELL DISTRIBUTION WIDTH 14.8 % (11.6-17.2); REVIEW FLAG FINAL
[2017-05-25 08:48] LABS: INTERNATIONAL NORMALIZED RATIO 1.1 RATIO; PROTHROMBIN TIME - PATIENT 11.9 SEC (9.8-11.6)
--- NOTE | 2017-05-25 13:38 | PD.CARD.PN ---
Subjective Subjective Remarks alert in nad Objective Vital Signs / I&O Vital Signs Date Time Temp Pulse Resp B/P Pulse Ox O2 Delivery O2 Flow Rate FiO2 05/25/17 08:33 88 05/25/17 08:00 97.5 94 18 159/91 94 05/25/17 07:58 95 21 05/25/17 05:50 97.5 104 19 143/72 97 05/25/17 00:00 98.1 89 20 132/65 94 05/24/17 22:35 95 21 05/24/17 21:15 97.8 100 20 136/64 94 05/24/17 20:00 89 05/24/17 16:00 97.6 106 16 143/74 95 I/O 05/24/17 05/24/17 05/24/17 05/25/17 05/25/17 05/25/17 07:00 15:00 23:00 07:00 15:00 23:00 Intake Total 600 ml 950 ml 500 ml 100 ml Output Total 125 ml 0 ml Balance 475 ml 950 ml 500 ml 100 ml Intake Oral 600 ml 950 ml 500 ml IV Total 100 ml Output Urine Total 125 ml 0 ml # Voids 3 3 # Bowel Movements 2 0 0 Physical Exam GENERAL: SKIN: Warm and dry. HEAD: Normocephalic. EYES: No scleral icterus. No injection or drainage. NECK: Supple, trachea midline. No JVD or lymphadenopathy. CARDIOVASCULAR: Regular rate and rhythm without murmurs, gallops, or rubs. RESPIRATORY: Breath sounds equal bilaterally. No accessory muscle use. GASTROINTESTINAL: Abdomen soft, non-tender, nondistended. MUSCULOSKELETAL: No cyanosis, or edema. BACK: Nontender without obvious deformity. No CVA tenderness. Laboratory Laboratory Tests Test 05/25/17 05/25/17 06:55 06:57 Prothrombin Time 11.9 SEC Prothromb Time International 1.1 RATIO Ratio White Blood Count 14.0 TH/MM3 Red Blood Count 4.16 MIL/MM3 Hemoglobin 12.6 GM/DL Hematocrit 38.4 % Mean Corpuscular Volume 92.4 FL Mean Corpuscular Hemoglobin 30.4 PG Mean Corpuscular Hemoglobin 32.9 % Concent Red Cell Distribution Width 14.8 % Platelet Count 318 TH/MM3 Mean Platelet Volume 8.9 FL Assessment and Plan Problem List: (1) Atrial fibrillation (2) Troponin level elevated Assessment and Plan 1.) afib - rate controlled, change lovenox to 120 mg sq bid, start coumadin 5 mg qd for inr =2.0-3.0 due to CHADS score= 3(htn, h/o cva, age >70); inr=1.1 today Problem Qualifiers (1) Atrial fibrillation: Qualified Code: I48.91 - Atrial fibrillation, unspecified type Keshav Dixon MD May 25, 2017 13:38
[2017-05-25] MEDS: WARFARIN SOD 5 MG TAB PO SCH (16:08)
--- NOTE | 2017-05-25 18:05 | HHI.PR ---
Subjective Remarks Follow up for syncope, afib. Patient is currently doing well. He is ambulating well. Tolerating diet well. No acute concerns. Objective Vitals Vital Signs Date Time Temp Pulse Resp B/P Pulse Ox O2 Delivery O2 Flow Rate FiO2 05/25/17 08:33 88 05/25/17 08:00 97.5 94 18 159/91 94 05/25/17 07:58 95 21 05/25/17 05:50 97.5 104 19 143/72 97 05/25/17 00:00 98.1 89 20 132/65 94 05/24/17 22:35 95 21 05/24/17 21:15 97.8 100 20 136/64 94 05/24/17 20:00 89 I/O 05/24/17 05/24/17 05/24/17 05/25/17 05/25/17 05/25/17 07:00 15:00 23:00 07:00 15:00 23:00 Intake Total 600 ml 950 ml 500 ml 100 ml Output Total 125 ml 0 ml Balance 475 ml 950 ml 500 ml 100 ml Intake Oral 600 ml 950 ml 500 ml IV Total 100 ml Output Urine Total 125 ml 0 ml # Voids 3 3 # Bowel Movements 2 0 0 Result Diagram: 05/25/17 0657 Imaging Last Impressions Chest X-Ray 05/23/17 0800 Signed Impressions: Service Date/Time: Tuesday, May 23, 2017 07:58 - CONCLUSION: Slight improvement in aeration Jarek Durham MD Brain MRI 05/23/17 0000 Signed Impressions: Service Date/Time: Tuesday, May 23, 2017 17:05 - CONCLUSION: 1. Cerebral atrophy and chronic ischemic small vessel vasculopathies. 2. Old infarcts. Velasquez Ramirez MD Head CT 05/18/17 1811 Signed Impressions: Service Date/Time: Thursday, May 18, 2017 18:37 - CONCLUSION: No acute disease. Enrrique Summers MD Hip and Pelvis X-Ray 05/18/17 0000 Signed Impressions: Service Date/Time: Thursday, May 18, 2017 22:39 - CONCLUSION: No acute disease. Enrrique Summers MD Carotid Artery Ultrasound 05/18/17 0000 Signed Impressions: Service Date/Time: Thursday, May 18, 2017 20:44 - CONCLUSION: 1. No evidence for hemodynamically significant stenosis. Minimal plaque deposition left greater than right. Enrrique Summers MD CT Angiography 05/18/17 0000 Signed Impressions: Service Date/Time: Thursday, May 18, 2017 21:35 - CONCLUSION: 1. Right lower lobe pneumonia with right hilar adenopathy. 2. Right renal cyst. 3. Coronary calcification. 4. No evidence for pulmonary embolus Enrrique Summers MD Objective Remarks GENERAL: Hard of hearing, alert, NAD. SKIN: Warm and dry. HEAD: Normocephalic. EYES: No scleral icterus. No injection or drainage. NECK: Supple, trachea midline. No JVD or lymphadenopathy. CARDIOVASCULAR: Irreg Irreg without murmurs, gallops, or rubs. RESPIRATORY: Moderate air entry, Diffuse wheezing present. GASTROINTESTINAL: Abdomen soft, non-tender, nondistended. MUSCULOSKELETAL: No cyanosis, or edema. BACK: Nontender without obvious deformity. No CVA tenderness. Procedures None A/P Assessment and Plan 72-year-old male with past medical history of OA who presented after syncopal episode Syncope: Likely secondary to acute pneumonia. Carotid ultrasound no significant stenosis. Troponin 0.06, 0.07, 0.06 . EKG with sinus dysrhythmia was slightly tachycardic rate. Echocardiogram EF 50-55%. Treat pneumonia as below. Monitor on telemetry. Atrial Fibrillation - [id number] score above 2. - Patient is currently on Lovenox 1mg/kg BID as well as Warfarin. - No clear indication to bridge. - Patient lives alone and Apixaban would likely be easier for him to take. - Will start patient on Apixaban 5mg BID starting tomorrow. D/C Lovenox, Warfarin. - If rate control is desired, we could consider cardioselective beta riaz (metoprolol) or CCB (Diltiazem). Pneumonia with sepsis: Tachycardia, tachypnea, leukocytosis. Chest x-ray and CT show right lower lobe pneumonia with hilar adenopathy. IV antibiotics with azithromycin and cefepime. Cultures were negative, Swallow eval recommended Mechanical soft diet, not improving his respiratory status, was consulted to provider education specialist, recommended Telecommunications Support consult continued present care. he was chronic smoker, COPD versus Interstitial Lung disease Obesity Hypoventilation syndrome is a component, ETHAN. continue Bronchodilator, Mucolytic and incentive spirometry. Steroids. We can likely switch to Levaquin on discharge to complete a total of 7 day course of abx. - COPD exacerbation - Continue DuoNeb, IV steroid. - We will switch to PO steroid tomorrow. Left hip pain s/p fall from syncope: Pain is improved. X-ray negative for any acute process. Tylenol as needed. Morbid Obesity recommended diet and exercise. Hypertension Controlled. Continue Amlodipine 10mg Qday. Full code. Lovenox, warfarin today. Apixaban starting 05/26/2017. Kimberly Mitchell DO May 25, 2017 6:05 pm
[2017-05-26 00:10] VITALS: BP 128/70; PULSE 101; RESP 20; TEMP 98; O2SAT 97
[2017-05-26] MEDS: RESP: ALBUTEROL 2.5 MG/IPRATROPIUM 0.5 MG NEB (SCH) NEB ×4 (00:19→11:59)
[2017-05-26 00:20] VITALS: O2SAT 97
[2017-05-26] MEDS: methylPREDNISolone SOD SUCC 40 MG/1 ML VIAL IV PUSH SCH ×3 (00:34→11:34)
[2017-05-26 04:00] VITALS: BP 130/65; PULSE 103; RESP 21; TEMP 98.7; O2SAT 98
[2017-05-26] MEDS: guaiFENesin E.R. 600 MG TAB PO SCH (07:48)
[2017-05-26] MEDS: PANTOPRAZOLE SOD 40 MG DELAYED RELEASE TAB PO SCH (07:49)
[2017-05-26] MEDS: SODIUM CHLORIDE 0.9% FLUSH 10 ML FLUSH IV FLUSH SCH (07:49)
[2017-05-26] MEDS: AZITHROMYCIN 250 MG TAB PO SCH (07:49)
[2017-05-26] MEDS: CEFEPIME INJ 1,000 MG in SODIUM CHLORIDE 0.9% INJ 100 ML IV SCH (07:51)
[2017-05-26 07:59] VITALS: PULSE 89
[2017-05-26 08:08] VITALS: O2SAT 97
[2017-05-26 08:09] VITALS: BP 154/79; PULSE 74; RESP 19; TEMP 98.6; O2SAT 95
[2017-05-26 08:13] LABS: INTERNATIONAL NORMALIZED RATIO 1.1 RATIO
[2017-05-26 08:21] LABS: HEMATOCRIT 36.6 % (39.0-51.0); MEAN CELL VOLUME 91.5 FL (80.0-100.0); MEAN CORPUSCULAR HEMOGLOBIN 30.6 PG (27.0-34.0); MEAN CORPUSCULAR HGB CONC 33.5 % (32.0-36.0); PLATELET COUNT 286 TH/MM3 (150-450); RED CELL DISTRIBUTION WIDTH 14.9 % (11.6-17.2); REVIEW FLAG FINAL; WHITE BLOOD COUNT 11.6 TH/MM3 (4.0-11.0)
[2017-05-26] MEDS ORDERED: APIXABAN 5 MG TABLET PO SCH (09:00)
[2017-05-26] MEDS ORDERED: SYMB160A INH (12:03)
[2017-05-26] MEDS ORDERED: APIX5TAB PO (12:03)
[2017-05-26] MEDS ORDERED: AMLO10 PO (12:03)
[2017-05-26] MEDS ORDERED: PRED10 PO (12:03)
[2017-05-26] MEDS ORDERED: VENTAER INH (12:03)
--- NOTE | 2017-05-26 12:05 | HHI.DS ---
Discharge Summary Admission Date May 19, 2017 at 8:15 am Discharge Date: May 26, 2017 Admitting Diagnosis altered mental status, CAP, a. fib, positive trop (1) Atrial fibrillation ICD Code: I48.91 Diagnosis: Principal (2) Pneumonia ICD Code: J18.9 Diagnosis: Principal (3) COPD exacerbation ICD Code: J44.1 Procedures None Brief History - From Admission History from patient, ER PA communication, and review of medical records. Patient reported that he wants to [place] today and he took a bus back home and as he got out of the bus and walked on the street, he somehow fell and passed out. He denies any premonitory symptoms prior to the event. Specifically, he denies any chest pain/palpitations/shortness of breath/dizziness/focal weakness/visual disturbance. He stated that he fell onto his buttock. He stated he may have passed out a few seconds he. He is not sure. However he does note that he had severe pain in his left hip area which was making him hard to get up. Therefore a bystander saw him and called 911. Patient still complains about pain in his this left hip. Apart from that, he denies any pain anywhere. On further questioning, patient also denies any recent fevers/nausea/vomiting/ diarrhea/urinary burning or pain on urination. He denies any hematemesis/hematochezia/melena/hematuria. Denies any blood in his stool or urine. Patient denies any previous medical history. He takes only one medicine for which he thinks is probably Excedrin [id number] which is 650 mg at [facility] for arthritis. He denies any previous surgical history. He states he lives alone. Usually does not use a walker to walk. No longer driving. Patient is quite obese as well. In the emergency room, patient's workup revealed leukocytosis with left shift, chest x-ray evidence of pneumonia, mild troponin elevation of 0.06. Again, patient denies any cough or sputum production. EMS report also stated that patient had fever of 102. Patient's EKG was also read as A. fib with heart rate around 108. However on review of his EKG, P waves are evident. Thus sinus tachycardia. ER triage note states that EMS was reporting patient is altered and laying in a pool of his own sweat when they arrived. He was given 1 L normal saline bolus by EMS. He was AAO 3 upon arrival to ER per triage notes. Triage notes also states that patient was complaining of leg cramp and that his leg giving out prior to the fall. CBC/BMP: 05/26/17 0642 Significant Findings Laboratory Tests Test 05/24/17 05/25/17 05/25/17 05/26/17 09:07 06:55 06:57 06:42 White Blood Count 16.3 TH/MM3 14.0 TH/MM3 11.6 TH/MM3 (4.0-11.0) (4.0-11.0) (4.0-11.0) Red Blood Count 4.22 MIL/MM3 4.16 MIL/MM3 4.00 MIL/MM3 (4.50-5.90) (4.50-5.90) (4.50-5.90) Hematocrit 38.8 % 38.4 % 36.6 % (39.0-51.0) (39.0-51.0) (39.0-51.0) Prothrombin Time 11.9 SEC 11.9 SEC 12.0 SEC (9.8-11.6) (9.8-11.6) (9.8-11.6) Hemoglobin 12.6 GM/DL 12.3 GM/DL (13.0-17.0) (13.0-17.0) Imaging Last Impressions Chest X-Ray 05/23/17 0800 Signed Impressions: Service Date/Time: Tuesday, May 23, 2017 07:58 - CONCLUSION: Slight improvement in aeration Jarek Durham MD Brain MRI 05/23/17 0000 Signed Impressions: Service Date/Time: Tuesday, May 23, 2017 17:05 - CONCLUSION: 1. Cerebral atrophy and chronic ischemic small vessel vasculopathies. 2. Old infarcts. Velasquez Ramirez MD Head CT 05/18/17 1811 Signed Impressions: Service Date/Time: Thursday, May 18, 2017 18:37 - CONCLUSION: No acute disease. Enrrique Summers MD Hip and Pelvis X-Ray 05/18/17 0000 Signed Impressions: Service Date/Time: Thursday, May 18, 2017 22:39 - CONCLUSION: No acute disease. Enrrique Summers MD Carotid Artery Ultrasound 05/18/17 0000 Signed Impressions: Service Date/Time: Thursday, May 18, 2017 20:44 - CONCLUSION: 1. No evidence for hemodynamically significant stenosis. Minimal plaque deposition left greater than right. Enrrique Summers MD CT Angiography 05/18/17 0000 Signed Impressions: Service Date/Time: Thursday, May 18, 2017 21:35 - CONCLUSION: 1. Right lower lobe pneumonia with right hilar adenopathy. 2. Right renal cyst. 3. Coronary calcification. 4. No evidence for pulmonary embolus Enrrique Summers MD PE at Discharge GENERAL: Hard of hearing, alert, NAD. SKIN: Warm and dry. HEAD: Normocephalic. EYES: No scleral icterus. No injection or drainage. NECK: Supple, trachea midline. No JVD or lymphadenopathy. CARDIOVASCULAR: Irreg Irreg without murmurs, gallops, or rubs. RESPIRATORY: Moderate air entry, Diffuse wheezing present. GASTROINTESTINAL: Abdomen soft, non-tender, nondistended. MUSCULOSKELETAL: No cyanosis, or edema. BACK: Nontender without obvious deformity. No CVA tenderness. Pt Condition on Discharge: Good Discharge Disposition: Disch w/ Home Health Serv Discharge Time: > 30 minutes Discharge Instructions DIET: Follow Instructions for: Heart Healthy Diet Activities you can perform: Regular-No Restrictions Follow up Referrals: PCP Follow-up - 1 Week New Medications: Albuterol 18 GM Inh (Ventolin Hfa 18 GM Inh) 90 Mcg/Act Aer 2 PUFF INH Q4-6H PRN SHORTNESS OF BREATH #1 Ref 0 INHALER Budesonide-Formoterol Inh (Symbicort Inh) 160-4.5 Mcg/Act Aero 1 PUFF INH Q12HR #1 Ref 0 INHALER Prednisone (Prednisone) 10 Mg Tab 10 MG PO BID Breathing #8 Ref 0 TAB Amlodipine (Norvasc) 10 Mg Tab 10 MG PO DAILY Blood Pressure Management #30 TAB Apixaban (Eliquis) 5 Mg Tab 5 MG PO BID Blood Clot Prevention #60 TAB Kimberly Mitchell DO May 26, 2017 12:05 pm
--- NOTE | 2017-05-26 15:07 | HHI.FF ---
Face to Face Verification Diagnosis: (1) COPD exacerbation (2) Pneumonia (3) Atrial fibrillation Physical Therapy Order: Evaluate and Treat, Improve ambulation, Strength and gait training Speech Therapy Order: To Improve: Speech and communication skills, Cognitive skills, Swallowing Home Health Nursing Order: Medical education Signs/symptoms of disease process Diabetic education Nursing assessment with vital signs Duplex Trimmer Order: To Evaluate: Living conditions/environment, Support services Order: To Provide: Long range planning, Community services I have seen patient Samuel Almodovar on 05/26/17. My clinical findings support the need for the requested home health care services because: Ltd mobility - disease progression Deconditioned w/ increased weakness Limited ability to care for self Need for psychosocial assistance Impaired cognition/judgement High risk of falls Infection w/ risk of complications I certify that my clinical findings support that this patient is homebound because: Impaired cognitive ability/safety Unsafe to leave home unassisted Unable to use public transportation Kimberly Mitchell DO May 26, 2017 3:06 pm
== END 2017-05-26 13:18 | disposition home health service (06) | DRG 871 ==
LOC: NEPE 16:09 → NEDA 20:30 → INTOOBSV 20:30 → NEPFCDU 21:50 → OBSVTOIN 05-19 08:15 → N05A 05-20 23:15
PROVIDERS: ADMIT Hospitalist; ATTEND Hospitalist
DX: A41.9 Sepsis, unspecified organism (principal); J44.0 Chronic obstructive pulmonary disease with (acute) lower respiratory infection; J18.9 Pneumonia, unspecified organism; I48.91 Unspecified atrial fibrillation; E66.2 Morbid (severe) obesity with alveolar hypoventilation; Z68.43 Body mass index [BMI] 50.0-59.9, adult; J44.1 Chronic obstructive pulmonary disease with (acute) exacerbation; G47.33 Obstructive sleep apnea (adult) (pediatric); R55 Syncope and collapse; I10 Essential (primary) hypertension; E86.0 Dehydration; F17.290 Nicotine dependence, other tobacco product, uncomplicated; W19.XXXA Unspecified fall, initial encounter; M25.552 Pain in left hip; M19.90 Unspecified osteoarthritis, unspecified site; R00.0 Tachycardia, unspecified; H91.90 Unspecified hearing loss, unspecified ear
CPT/HCPCS: 36600; 70450; 70551; 71010; 71020; 71275; 73502; 80048; 80053; 80307; 81001; 82550; 82552; 82607; 82805; 83605; 83735; 84443; 84484; 85025; 85027; 85610; 86592; 87040; 87449; 93005; 93306; 93880; 94150; 94640; 94664; 95819; 96360; G8996-GN; G8997-GN; G8998-GN; J0456; J0692; J0696; J1650; J1940; J2920; J7030; J7050; Q9967

== ENCOUNTER 2018-08-20 17:21 | Observation (INO) ==
--- NOTE | 2018-08-20 18:01 | ED ---
HPI General Chief complaint: Weakness Stated complaint: back pain Time Seen by Provider: 08/20/18 17:51 Source: patient Mode of arrival: EMS Limitations: other (Hard of hearing) History of Present Illness HPI narrative: 73-year-old male brought in by EMS for evaluation of generalized weakness and chronic lower back pain. The patient was apparently on the public bus when he was asked to get off the bus. The patient was unsure why they asked him to get off the bus. He states that afterwards he sat down, however he was unable to get himself back up. A bystander then called EMS because of this. Patient reports feeling generalized weakness. He has chronic lower back pains. He denies fall or injuries. No paresthesias or motor deficits. No fevers, chills, cough, or recent illness. He does have shortness of breath which is chronic, at rest, worse with exertion. No chest pain. Related Data Home Medications Medication Instructions Recorded Confirmed No Known Home Medications 08/20/18 08/20/18 Allergies Allergy/AdvReac Type Severity Reaction Status Date / Time No Known Allergies Allergy Verified 08/20/18 17:38 Review of Systems ROS: all other systems reviewed are negative [facility] Medical History Medical History Deficient knowledge of lower extremity surgery (Acute) Social History Social History Substance History: No History of Abuse Second Hand Smoke Exposure: Yes Smoking Status: Light tobacco smoker Tobacco Type: Pipe How Often Do You Have a Drink Containing Alcohol: Monthly or less Recent Travel in [facility] within the Last 8 Weeks: No Recent Out of Country Travel within the Last 8 Weeks: No Exam Narrative Exam Narrative: GENERAL: Well-developed, well-nourished, significantly overweight, awake, alert, no apparent distress. SKIN: Focused skin assessment warm/dry. HEAD: Atraumatic. Normocephalic. EYES: Pupils equal and round. No scleral icterus. No injection or drainage. ENT: No nasal bleeding or discharge. Mucous membranes pink and moist. NECK: Trachea midline. No JVD. CARDIOVASCULAR: Regular rate and rhythm. No murmur appreciated. RESPIRATORY: No accessory muscle use. Clear to auscultation. GASTROINTESTINAL: Abdomen soft, non-tender, nondistended. MUSCULOSKELETAL: No obvious deformities. No clubbing. No cyanosis. Moderate bilateral lower extremity edema. Mild midline lumbar spine tenderness without step-off. No midline thoracic spine or cervical spine step-off or tenderness. NEUROLOGICAL: Awake and alert. No obvious cranial nerve deficits. Motor grossly within normal limits. Normal speech. Normal range of motion and muscle strength in flexion and extension of the hip, knee, and ankle joints. No saddle anesthesia. PSYCHIATRIC: Appropriate mood and affect; insight and judgment normal. Course Initial Documented Vital Signs Temperature 97.8 F 08/20/18 17:38 Pulse Rate 97 H 08/20/18 17:38 Respiratory Rate 21 08/20/18 17:38 Blood Pressure 169/77 H 08/20/18 17:38 Pulse Oximetry 97 08/20/18 17:38 Last Documented Vital Signs Temperature 97.8 F 08/20/18 17:38 Pulse Rate 97 H 08/20/18 17:38 Respiratory Rate 21 08/20/18 17:49 Blood Pressure 169/77 H 08/20/18 17:38 Pulse Oximetry 97 08/20/18 17:49 Medical Decision Making MDM Narrative Medical decision making narrative: Vital signs reviewed. UA suggestive of UTI and the patient was given 1 g of IV Rocephin. Labs reviewed and are remarkable for a CK in the 800s, troponin of 0.12, creatinine of 1.3 which is slightly worse than his baseline. He will be given a liter of normal saline IV. BNP is 60. Chest x-ray shows no acute disease. CT lumbar spine: CONCLUSION:1. No acute fracture. Moderate degenerative disc disease.2. At L5- S1 there is minimal retrolisthesis with foraminal stenosis, left greater than right.3. At L2-3 there is a broad-based disc bulge or mild protrusion slightly worse on the right lateral recess encroachment. EKG shows A. fib with a rate of 98, normal axis, normal intervals, minimal ST depressions. Patient was made aware of all findings. He was given a liter of normal saline IV and 1 g of IV Rocephin for his UTI. He has occasional episodes of A. fib with RVR. Chart review shows that the patient was discharged last time he was here with anticoagulants. He is noncompliant with his medications. He is very hard of hearing. He has normal range of motion and muscle strength in his bilateral lower extremities, however he is significantly obese and is unable to ambulate because of generalized weakness. As a result he is not a safe discharge home and will be admitted for further treatment and evaluation of generalized weakness, UTI, inability to care for self. Case discussed with hospitalist Dr. Kennedy who will admit the patient to her service. Medical Screen Exam Complete: Yes Emergency Medical Condition: Yes Differential Diagnosis Differential Diagnosis: Generalized weakness, metabolic abnormality, rhabdomyolysis, pneumonia, UTI, spinal cord compression less likely Lab Data Result diagrams: 08/20/18 18:50 08/20/18 18:50 Lab Results 08/20/18 08/20/18 08/20/18 Range/Units 18:50 18:50 18:50 WBC 16.5 H (4.0-11.0) th/mm3 RBC 4.72 (4.50-5.90) mil/mm3 Hgb 14.7 (13.0-17.0) gm/dL Hct 44.1 (39.0-51.0) % MCV 93.3 (80.0-100.0) fL MCH 31.1 (27.0-34.0) pg MCHC 33.4 (32.0-36.0) % RDW 15.0 (11.6-17.2) % Plt Count 258 (150-450) th/mm3 MPV 9.1 (7.0-11.0) fL Neut % (Auto) 82.9 H (16.0-70.0) % Lymph % (Auto) 10.7 (9.0-44.0) % [place] % (Auto) 5.0 (0.0-8.0) % Eos % (Auto) 0.2 (0.0-4.0) % Baso % (Auto) 1.2 (0.0-2.0) % Neut # (Auto) 13.7 H (1.8-7.7) th/mm3 Lymph # (Auto) 1.8 (1.0-4.8) th/mm3 [place] # (Auto) 0.8 (0.0-0.9) th/mm3 Eos # (Auto) 0.0 (0.0-0.4) th/mm3 Baso # (Auto) 0.2 (0.0-0.2) th/mm3 WBC Differential . Differential Comment Auto diff final PT 10.8 (9.8-11.6) sec INR 1.1 Ratio Sodium 138 (136-145) meq/L Potassium 4.6 (3.5-5.1) meq/L Chloride 105 (98-107) meq/L Carbon Dioxide 22.6 (21.0-32.0) meq/L Anion Gap 10 (5-15) meq/L BUN 19 H (7-18) mg/dL Creatinine 1.31 H (0.60-1.30) mg/dL Estimated GFR 53 L (>89) mL/min Random Glucose 93 (74-106) mg/dL Calcium 8.8 (8.5-10.1) mg/dL Magnesium 2.3 (1.5-2.5) mg/dL Total Bilirubin 0.7 (0.2-1.0) mg/dL AST 35 (15-37) U/L ALT 18 (12-78) U/L Alkaline Phosphatase 104 (45-117) U/L Total Creatine Kinase 862 H (39-308) U/L CK-MB (CK-2) 3.4 (0.5-3.6) ng/mL CK-MB (CK-2) % 0.4 (0.0-4.0) % Troponin I 0.12 H (0.02-0.05) ng/mL B-Natriuretic Peptide (0-100) pg/mL Total Protein 8.1 (6.4-8.2) g/dL Albumin 3.7 (3.4-5.0) g/dL Urine Color (Yellw/Straw) Urine Clarity (Clear) Urine pH (5.0-8.5) Ur Specific [place] (1.002-1.035) Urine Protein (Neg-Trace) mg/dL Urine Glucose (UA) (Negative) mg/dL Urine Ketones (Negative) mg/dL Urine Occult Blood (Negative) Urine Nitrate (Negative) Urine Bilirubin (Negative) Urine Urobilinogen (Less than 2) mg/dL Ur Leukocyte Esterase (Negative) Urine RBC (0-3) /hpf Urine WBC (0-5) /hpf Ur Squamous Epith Cells (0-5) /hpf Urine Mucus (Occasional) /lpf Micro UA Comment Ur Microscopic Review Urine Culture Comments 08/20/18 08/20/18 Range/Units 18:50 18:50 WBC (4.0-11.0) th/mm3 RBC (4.50-5.90) mil/mm3 Hgb (13.0-17.0) gm/dL Hct (39.0-51.0) % MCV (80.0-100.0) fL MCH (27.0-34.0) pg MCHC (32.0-36.0) % RDW (11.6-17.2) % Plt Count (150-450) th/mm3 MPV (7.0-11.0) fL Neut % (Auto) (16.0-70.0) % Lymph % (Auto) (9.0-44.0) % [place] % (Auto) (0.0-8.0) % Eos % (Auto) (0.0-4.0) % Baso % (Auto) (0.0-2.0) % Neut # (Auto) (1.8-7.7) th/mm3 Lymph # (Auto) (1.0-4.8) th/mm3 [place] # (Auto) (0.0-0.9) th/mm3 Eos # (Auto) (0.0-0.4) th/mm3 Baso # (Auto) (0.0-0.2) th/mm3 WBC Differential Differential Comment PT (9.8-11.6) sec INR Ratio Sodium (136-145) meq/L Potassium (3.5-5.1) meq/L Chloride (98-107) meq/L Carbon Dioxide (21.0-32.0) meq/L Anion Gap (5-15) meq/L BUN (7-18) mg/dL Creatinine (0.60-1.30) mg/dL Estimated GFR (>89) mL/min Random Glucose (74-106) mg/dL Calcium (8.5-10.1) mg/dL Magnesium (1.5-2.5) mg/dL Total Bilirubin (0.2-1.0) mg/dL AST (15-37) U/L ALT (12-78) U/L Alkaline Phosphatase (45-117) U/L Total Creatine Kinase (39-308) U/L CK-MB (CK-2) (0.5-3.6) ng/mL CK-MB (CK-2) % (0.0-4.0) % Troponin I (0.02-0.05) ng/mL B-Natriuretic Peptide 68 (0-100) pg/mL Total Protein (6.4-8.2) g/dL Albumin (3.4-5.0) g/dL Urine Color [place]am (Yellw/Straw) Urine Clarity Cloudy H (Clear) Urine pH 5.0 (5.0-8.5) Ur Specific [place] 1.028 (1.002-1.035) Urine Protein 100 H (Neg-Trace) mg/dL Urine Glucose (UA) Negative (Negative) mg/dL Urine Ketones 20 (Negative) mg/dL Urine Occult Blood Large H (Negative) Urine Nitrate Negative (Negative) Urine Bilirubin Negative (Negative) Urine Urobilinogen Less than 2 (Less than 2) mg/dL Ur Leukocyte Esterase Trace H (Negative) Urine RBC 82 H (0-3) /hpf Urine WBC 48 H (0-5) /hpf Ur Squamous Epith Cells 1 (0-5) /hpf Urine Mucus Few H (Occasional) /lpf Micro UA Comment Culture indicated Ur Microscopic Review Not Reportable Urine Culture Comments Culture indicated Imaging Data Radiologist's impression: Chest X-Ray 08/20/18 17:56 CONCLUSION: 1. No acute cardiopulmonary disease. Lumbar Spine CT 08/20/18 17:56 CONCLUSION: 1. No acute fracture. Moderate degenerative disc disease. 2. At L5-S1 there is minimal retrolisthesis with foraminal stenosis, left greater than right. 3. At L2-3 there is a broad-based disc bulge or mild protrusion slightly worse on the right lateral recess encroachment. Discharge Plan Discharge Disposition Patient Disposition: 30 Still Patient Discharge Condition Condition: Stable Discharge Details Diagnosis: Acute UTI, Dehydration, Generalized weakness, Alteration in self-care ability, Elevated troponin Physicians Team ED Provider: Nico Germain Primary Care Provider: Primary Care Dea Rodríguez Rxs /Orders / Referrals /Forms Prescriptions: No Action No Known Home Medications RF: 0 Discharge Interventions Interventions: Vital Signs Last Done: 08/20/18 17:49 Status ED Status: With Doctor
--- NOTE | 2018-08-20 18:46 | XR ---
EXAM DATE: 08/20/2018 5:56 PM EDT AGE/SEX: 73 years / Male INDICATIONS: Short of breath CLINICAL DATA: This is the patient's initial encounter. Patient reports that signs and symptoms have been present for 1 day and indicates a pain score of Nonresponsive. MEDICAL/SURGICAL HISTORY: Non-responsive. Non-responsive. COMPARISON: [facility] [place] [facility] [place] AP, 05/23/2017. . FINDINGS: A single AP view of the chest demonstrates the lungs to be symmetrically aerated without evidence of mass, infiltrate or effusion. The cardiomediastinal contours are unremarkable. Osseous structures a re intact. CONCLUSION: 1. No acute cardiopulmonary disease. Electronically signed by: Mateusz Arguelles MD 08/20/2018 6:45 PM EDT
[2018-08-20 19:05] LABS: Baso # (Auto) 0.2 th/mm3 (0.0-0.2); Baso % (Auto) 1.2 % (0.0-2.0); Eos % (Auto) 0.2 % (0.0-4.0); Hematocrit 44.1 % (39.0-51.0); Hemoglobin 14.7 gm/dL (13.0-17.0); Lymph # (Auto) 1.8 th/mm3 (1.0-4.8); Lymph % (Auto) 10.7 % (9.0-44.0); Mean Corpuscular HGB Conc 33.4 % (32.0-36.0); Mean Corpuscular Hemoglobin 31.1 pg (27.0-34.0); Mean Corpuscular Volume 93.3 fL (80.0-100.0); Mean Platelet Volume 9.1 fL (7.0-11.0); Mono # (Auto) 0.8 th/mm3 (0.0-0.9); Neut # (Auto) 13.7 th/mm3 (1.8-7.7); Neut % (Auto) 82.9 % (16.0-70.0); Platelet Count 258 th/mm3 (150-450); Red Blood Count 4.72 mil/mm3 (4.50-5.90); White Blood Count 16.5 th/mm3 (4.0-11.0)
[2018-08-20 19:10] LABS: Bilirubin,Urine Negative (Negative); Clarity,Urine Cloudy (Clear); Color,Urine Amber (Yellw/Straw); Glucose,Urine (UA) Negative (Negative); Leukocyte Esterase,Urine Trace (Negative); Mucus,Urine Few /lpf (Occasional); Nitrite,Urine Negative (Negative); Specific Gravity,Urine 1.028 (1.002-1.035); Squamous Epithelial Cell,Urine 1 /hpf (0-5)
[2018-08-20 19:13] LABS: INR 1.1 Ratio; Prothrombin Time 10.8 sec (9.8-11.6)
--- NOTE | 2018-08-20 19:18 | CT ---
EXAM DATE: 08/20/2018 6:00 PM EDT AGE/SEX: 73 years / Male INDICATIONS: Lower back pain. CLINICAL DATA: This is the patient's initial encounter. Patient reports that signs and symptoms have been present for 1 day and indicates a pain score of 7/10. MEDICAL/SURGICAL HISTORY: None. None. RADIATION DOSE: 53.13 CTDI (mGy) ; Patient body habitus COMPARISON: No prior exams available for comparison. TECHNIQUE: Contiguous axial images were acquired with a multirow detector CT scanner without contras t. Multiplanar reconstructions in the sagittal and coronal plane were also performed. Using automate d exposure control and adjustment of the mA and/or kV according to patient size, radiation dose was k ept as low as reasonably achievable to obtain optimal diagnostic quality images. DICOM format image data is available electronically for review and comparison. FINDINGS: There is moderate degenerative disc disease and a mild levoscoliosis. At U67-P7-V0 there is no significant abnormality. At L2-3 there is a broad-based disc bulge or mild protrusion, slightly worse on the right side with m ild lateral recess and foraminal encroachment. At L3-4 there is a mild disc osteophyte complex and facet arthropathy with mild lateral recess and fo raminal encroachment bilaterally. At L4-5 there is a minimal disc bulge. Mild right-sided foraminal encroachment. At L5-S1 there is a minimal retrolisthesis with lateral recess stenosis and bilateral foraminal steno sis, left greater than right. CONCLUSION: 1. No acute fracture. Moderate degenerative disc disease. 2. At L5-S1 there is minimal retrolisthesis with foraminal stenosis, left greater than right. 3. At L2-3 there is a broad-based disc bulge or mild protrusion slightly worse on the right lateral recess encroachment. Electronically signed by: Jayson Trujillo MD 08/20/2018 7:17 PM EDT
[2018-08-20 19:28] LABS: Alanine Aminotransferase 18 U/L (12-78)
[2018-08-20 19:33] LABS: Albumin 3.7 g/dL (3.4-5.0); Alkaline Phosphatase 104 U/L (45-117); Anion Gap 10 meq/L (5-15); Aspartate Aminotransferase 35 U/L (15-37); Blood Urea Nitrogen 19 mg/dL (7-18); Calcium 8.8 mg/dL (8.5-10.1); Carbon Dioxide 22.6 meq/L (21.0-32.0); Chloride 105 meq/L (98-107); Creatine Kinase 862 U/L (39-308); Glomerular Filtration Rate 53 mL/min (>89); Glucose,Random 93 mg/dL (74-106); Magnesium 2.3 mg/dL (1.5-2.5); Sodium 138 meq/L (136-145); Total Protein 8.1 g/dL (6.4-8.2); Troponin I 0.12 ng/mL (0.02-0.05)
[2018-08-20 19:35] LABS: Potassium 4.6 meq/L (3.5-5.1)
[2018-08-20] MEDS ORDERED: Aspirin 325 MG Tablet PO ONE (19:40)
[2018-08-20 19:47] LABS: CKMB Percent 0.4 % (0.0-4.0); Creatine Kinase MB 3.4 ng/mL (0.5-3.6)
[2018-08-20] MEDS ORDERED: Sod Chloride 0.9% Inj 1,000 ML IV.SIG SCH (20:15)
[2018-08-20] MEDS ORDERED: Acetaminophen 325 MG Tablet PO PRN (20:20)
[2018-08-20] MEDS ORDERED: Bisacodyl 10 MG Supp RECTAL PRN (20:20)
--- NOTE | 2018-08-20 20:26 | P.HPIM ---
History of Present Illness Primary Care Physician: No Primary Care Physician History of Present Illness: This is a 73-year-old male with a PMH of HTN, A-fib and NAVAJO who was brought to the ER by EMS for c/o generalized weakness and inability to ambulate. Pt is very poor historian, unable to provide many details. Per report, pt was asked to exit the [employer] bus he was riding in for unknown reason, apparently pt sat on the bus bench and was unable to get up at which point bystanders called EMS. Does note back pain, but no recent injury/trauma. On arrival, noted to be in A-fib, HR 90-100's, pt does not know medications, likely non-compliant. BP 169/ 77, HR 97, O2 sat 97% on RA, Afebrile. WBC 16.5. Creatinine 1.31, previously 1.13 on 05/20/2017. Troponin 0 0.12, previously 0.07, 0.06 on previous admission 05/19/2017. No complaints of chest pain. CXR with no acute findings. CT L-spine no acute fracture. Pt unable to ambulate due to weakness, unsafe discharge. - Diagnosis (1) Afib (2) Generalized weakness (3) Alteration in self-care ability (4) Elevated troponin (5) Back pain Review of Systems PAST FAMILY HISTORY: Unknown All other systems reviewed negative except as stated in HPI PMFSH - History History Provided By: Patient - Medical History Medical History: Medical History (Last Updated 08/20/18 @ 17:48 by Julio Borja) Deficient knowledge of lower extremity surgery - Tobacco History Second Hand Smoke Exposure: Yes Tobacco Use In Past 30 Days: Yes Smoking Status: Light tobacco smoker Tobacco Type: Pipe - Alcohol History How Often Do You Have a Drink Containing Alcohol: Monthly or less - Substance Use History Substance History: No History of Abuse - Travel History Recent Travel in the [place] Within the Last 8 Weeks: No Recent Travel Out of the Country Within the Last 8 Weeks: No - Immunization History Tetanus Immunization: Unsure Medications and Allergies Active Medications: Active Medications Sodium Chloride (Ns Inj) 1,000 mls @ 0 mls/hr IV.SIG BOLUS DAMARIS Sodium Chloride (Ns Flush) 2 ml IV.FLUSH PRN PRN PRN Reason: FLUSH AFTER USING IV ACCESS Allergies Allergy/AdvReac Type Severity Reaction Status Date / Time No Known Allergies Allergy Verified 08/20/18 17:38 Home Medications Medication Instructions Recorded Confirmed Type No Known Home Medications 08/20/18 08/20/18 History Exam Vital signs: Vital Signs 08/20/18 17:38 08/20/18 17:49 Temperature 97.8 F Pulse Rate 97 H Respiratory Rate 21 21 Blood Pressure 169/77 H Pulse Oximetry 97 97 Intake & Output 08/20/18 08/20/18 08/21/18 06:59 18:59 06:59 Weight 127.006 kg Narrative: PE: GENERAL: Elderly white male in no acute distress, very [place]. SKIN: Focused skin assessment warm and dry. HEENT: PERRLA, EOMI. No scleral icterus or conjunctival pallor. No lid lag or facial droop. CARDIOVASCULAR: Regular rate and rhythm. No obvious murmurs to auscultation. No chest tenderness to palpation. RESPIRATORY: No obvious rhonchi or wheezing. Clear to auscultation. Breath sounds equal bilaterally. GASTROINTESTINAL: Abdomen soft, non-tender, nondistended. BS normal. MUSCULOSKELETAL: Extremities without clubbing, cyanosis, or edema. No obvious deformities. NEUROLOGICAL: Awake, alert. No focal neurologic deficits. Moving both upper and lower extremities spontaneously. PSYCHIATRIC: Appropriate mood and affect. Insight and judgment normal. Results - Labs CBC & Chem 7: 08/20/18 18:50 08/20/18 18:50 Labs: Short CBC 08/20/18 Range/Units 18:50 WBC 16.5 H (4.0-11.0) th/mm3 Hgb 14.7 (13.0-17.0) gm/dL Hct 44.1 (39.0-51.0) % Plt Count 258 (150-450) th/mm3 BMP 08/20/18 18:50 Sodium 138 Potassium 4.6 Chloride 105 Carbon Dioxide 22.6 BUN 19 H Creatinine 1.31 H Calcium 8.8 Cardiac Enzymes 08/20/18 Range/Units 18:50 Total Creatine Kinase 862 H (39-308) U/L CK-MB (CK-2) 3.4 (0.5-3.6) ng/mL Troponin I 0.12 H (0.02-0.05) ng/mL Liver Function 08/20/18 Range/Units 18:50 Total Bilirubin 0.7 (0.2-1.0) mg/dL AST 35 (15-37) U/L ALT 18 (12-78) U/L Alkaline Phosphatase 104 (45-117) U/L Albumin 3.7 (3.4-5.0) g/dL Urine 08/20/18 Range/Units 18:50 Urine Color Ema (Yellw/Straw) Urine Clarity Cloudy H (Clear) Urine pH 5.0 (5.0-8.5) Ur Specific [place] 1.028 (1.002-1.035) Urine Protein 100 H (Neg-Trace) mg/dL Urine Glucose (UA) Negative (Negative) mg/dL - Imaging Impressions Chest X-Ray 08/20/18 17:56 CONCLUSION: 1. No acute cardiopulmonary disease. Lumbar Spine CT 08/20/18 17:56 CONCLUSION: 1. No acute fracture. Moderate degenerative disc disease. 2. At L5-S1 there is minimal retrolisthesis with foraminal stenosis, left greater than right. 3. At L2-3 there is a broad-based disc bulge or mild protrusion slightly worse on the right lateral recess encroachment. Caprini VTE Risk Assessment Caprini VTE Risk Assessment: No/Low Risk (score <= 1) Caprini Risk Assessment Model: Point Value = 1 Point Value = 2 Point Value = 3 Point Value = 5 Age 41-60 Minor surgery BMI > 25 kg/m2 Swollen legs Varicose veins or History of unexplained or recurrent spontaneous Oral contraceptives or hormone replacement Sepsis (< 1 month) Serious lung disease, including pneumonia (< 1 month) Abnormal pulmonary function Acute myocardial infarction Congestive heart failure (< 1 month) History of inflammatory bowel disease Medical patient at bed rest Age 61-74 Arthroscopic surgery Major open surgery (> 45 min) Laparoscopic surgery (> 45 min) Malignancy Confined to bed (> 72 hours) Immobilizing plaster cast Central venous access Age >= 75 History of VTE Family history of VTE Factor V Leiden Prothrombin [id number] Lupus anticoagulant Anticardiolipin antibodies Elevated serum homocysteine Heparin-induced thrombocytopenia Other congenital or acquired thrombophilia Stroke (< 1 month) Elective arthroplasty Hip, pelvis, or leg fracture Acute spinal cord injury (< 1 month) Prophylaxis Regimen: Total Risk Factor Score Risk Level Prophylaxis Regimen 0-1 Low Early ambulation 2 Moderate Order ONE of the following: *Sequential Compression Device (SCD) *Heparin 5000 units SQ BID 3-4 Higher Order ONE of the following medications: *Heparin 5000 units SQ TID *Enoxaparin/Lovenox 40 mg SQ daily (WT < 150 kg, CrCl > 30 mL/min) *Enoxaparin/Lovenox 30 mg SQ daily (WT < 150 kg, CrCl > 10-29 mL/min) *Enoxaparin/Lovenox 30 mg SQ BID (WT < 150 kg, CrCl > 30 mL/min) AND/OR *Sequential Compression Device (SCD) 5 or more Highest Order ONE of the following medications: *Heparin 5000 units SQ TID (Preferred with Epidurals) *Enoxaparin/Lovenox 40 mg SQ daily (WT < 150 kg, CrCl > 30 mL/min) *Enoxaparin/Lovenox 30 mg SQ daily (WT < 150 kg, CrCl > 10-29 mL/min) *Enoxaparin/Lovenox 30 mg SQ BID (WT < 150 kg, CrCl > 30 mL/min) AND *Sequential Compression Device (SCD) Assessment and Plan - Assessment (1) Afib Code(s): I48.91 - Unspecified atrial fibrillation Status: Acute (2) Generalized weakness Code(s): R53.1 - Weakness Status: Acute (3) Alteration in self-care ability Code(s): R53.81 - Other malaise Status: Acute (4) Elevated troponin Code(s): R74.8 - Abnormal levels of other serum enzymes Status: Acute (5) Back pain Code(s): M54.9 - Dorsalgia, unspecified Status: Acute - Plan A/P: 1. Generalized Weakness: likely combination of obesity/physical deconditioning w/ acute UTI, PT for eval/tx, will Consult Case Management for assistance w/ placement as pt unable to ambulate independently at this time. 2. Back Pain: acute on chronic, no injury/trauma, CT L-Spine w/ no acute fracture, images reviewed. Analgesics/antiemetics as needed, PT as above. 3. UTI: U/a w/ UTI, s/p Rocephin IV in ER, will continue w/ IV Abx, follow up cultures, IVF for hydration, monitor I/O. 4. PURVI: Creatinine 1.31, previously 1.13 on 05/20/17, likely secondary to above , IVF for hydration, monitor closely, repeat labs. 5. A-fib: Chronic, appears to be non-compliant w/ medications, initially HR 120's, now HR 90-100's, start Metoprolol and ASA 6. Elevated Trop: Trop 0.12, no acute ischemia noted, pt without complaints of chest pain, likely related to A-fib w/ RVR, will place on telemetry, check serial cardiac enzymes, Consult Cardiology as needed for further eval/ intervention. 7. DVT Prophylaxis: Heparin sq 8. Social work for d/c planning as needed. 9. Case discussed w/ ER physician at length, labs/records/imaging reviewed by me.
[2018-08-20] MEDS: Heparin - SQ 10,000 UNITS/ML Vial SQ SCH (21:35)
[2018-08-20] MEDS: Metoprolol Tartrate 25 MG Tablet PO SCH (21:36)
[2018-08-20] MEDS: Sod Chloride 0.9% Inj 1,000 ML IV.CONT SCH (21:36)
[2018-08-20] MEDS: Senna/Docusate Sodium 8.6/50 MG Tablet PO SCH (22:04)
[2018-08-21] MEDS: Sod Chloride 0.9% Inj 1,000 ML IV.CONT SCH ×2 (06:30→17:08)
[2018-08-21 07:58] LABS: Baso # (Auto) 0.1 th/mm3 (0.0-0.2); Baso % (Auto) 0.7 % (0.0-2.0); Eos # (Auto) 0.2 th/mm3 (0.0-0.4); Eos % (Auto) 1.6 % (0.0-4.0); Hematocrit 38.8 % (39.0-51.0); Hemoglobin 13.1 gm/dL (13.0-17.0); Lymph # (Auto) 2.5 th/mm3 (1.0-4.8); Lymph % (Auto) 23.5 % (9.0-44.0); Mean Corpuscular HGB Conc 33.7 % (32.0-36.0); Mean Corpuscular Hemoglobin 31.5 pg (27.0-34.0); Mean Corpuscular Volume 93.5 fL (80.0-100.0); Mean Platelet Volume 9.3 fL (7.0-11.0); Mono # (Auto) 0.9 th/mm3 (0.0-0.9); Mono % (Auto) 8.6 % (0.0-8.0); Neut # (Auto) 7.1 th/mm3 (1.8-7.7); Neut % (Auto) 65.6 % (16.0-70.0); Platelet Count 225 th/mm3 (150-450); Red Blood Count 4.15 mil/mm3 (4.50-5.90); Red Cell Distribution Width 15.1 % (11.6-17.2); White Blood Count 10.8 th/mm3 (4.0-11.0)
[2018-08-21 08:24] LABS: Alanine Aminotransferase 14 U/L (12-78); Albumin 3.4 g/dL (3.4-5.0); Alkaline Phosphatase 94 U/L (45-117); Anion Gap 11 meq/L (5-15); Aspartate Aminotransferase 29 U/L (15-37); Blood Urea Nitrogen 16 mg/dL (7-18); Calcium 8.6 mg/dL (8.5-10.1); Carbon Dioxide 23.4 meq/L (21.0-32.0); Chloride 107 meq/L (98-107); Glomerular Filtration Rate 58 mL/min (>89); Glucose,Random 89 mg/dL (74-106); Potassium 3.6 meq/L (3.5-5.1); Sodium 141 meq/L (136-145); Total Protein 7.2 g/dL (6.4-8.2)
[2018-08-21] MEDS: Metoprolol Tartrate 25 MG Tablet PO SCH ×2 (09:59→23:08)
[2018-08-21] MEDS: Senna/Docusate Sodium 8.6/50 MG Tablet PO SCH ×2 (10:00→23:06)
[2018-08-21] MEDS: Heparin - SQ 10,000 UNITS/ML Vial SQ SCH ×2 (10:00→23:07)
--- NOTE | 2018-08-21 10:21 | P.CONCA ---
History of Present Illness Service: Cardiology Consult date: 08/21/18 Reason for Consult: Elevated troponin Primary Care Provider: No Primary Care Physician Chief Complaint: Generalized weakness History of Present Illness: This is a 73-year-old male with past medical history of hypertension, hyperlipidemia, and atrial fibrillation who presented with generalized weakness and inability to ambulate. The patient is a poor historian and most of the records were obtained from the chart. Apparently patient had mildly elevated white count and creatinine. Troponin started at 0.07 but trended up to 0.12. Patient denies any chest pain symptoms. No prior history of known coronary disease. We are consulted for further recommendations given elevated troponin. Review of Systems All other systems reviewed negative except as stated in HPI [facility] - History History Provided By: Patient - Medical History Medical History: Medical History (Last Reviewed 08/21/18 @ 08:44 by Amrik Quinn) Deficient knowledge of lower extremity surgery - Tobacco History Second Hand Smoke Exposure: No Tobacco Use In Past 30 Days: Yes Smoking Status: Never smoker Tobacco Type: Pipe - Alcohol History How Often Do You Have a Drink Containing Alcohol: Never - Substance Use History Substance History: No History of Abuse - Travel History Recent Travel in the [place] Within the Last 8 Weeks: No Recent Travel Out of the Country Within the Last 8 Weeks: No - Immunization History Tetanus Immunization: Unsure Medications and Allergies Active Medications: Active Medications Acetaminophen (Tylenol) 650 mg PO Q4H PRN PRN Reason: Temp > 100.4 Hydrocodone Bitart/Acetaminophen ([place] 10/325) 1 tab PO Q4H PRN PRN Reason: PAIN 6-10 Hydrocodone Bitart/Acetaminophen ([place] 5/325) 1 tab PO Q4H PRN PRN Reason: PAIN 3-5 Al Hydroxide/Mg Hydroxide (Milk Of Magnesia Liq) 30 ml PO Q12H PRN PRN Reason: Mild Constipation Aspirin (Ecotrin) 81 mg PO DAILY [facility] Last Admin: 08/21/18 09:59 Dose: 81 mg Bisacodyl (Dulcolax Supp) 10 mg RECTAL DAILY PRN PRN Reason: SEVERE CONSITIPATION Heparin Sodium (Porcine) (Heparin Inj) 5,000 units SQ Q12H DAMARIS Last Admin: 08/21/18 10:00 Dose: Not Given Sodium Chloride (Ns Inj) 1,000 mls @ 0 mls/hr IV.SIG BOLUS DAMARIS Ceftriaxone Sodium 1,000 mg/ (Sodium Chloride) 100 mls @ 200 mls/hr IV.SIG Q24H DAMARIS Sodium Chloride (Ns Inj) 1,000 mls @ 100 mls/hr IV.CONT .Q10H [facility] Last Admin: 08/21/18 06:30 Dose: 100 mls/hr Lactulose (Lactulose Liq) 30 ml PO DAILY PRN PRN Reason: SEVERE CONSITIPATION Metoprolol Tartrate (Lopressor) 25 mg PO BID [facility] Last Admin: 08/21/18 09:59 Dose: 25 mg Ondansetron HCl (Zofran Inj) 4 mg IV.PUSH Q6H PRN PRN Reason: NAUSEA OR VOMITING Senna/Docusate Sodium (Tiffanie-Colace) 1 tab PO BID [facility] Last Admin: 08/21/18 10:00 Dose: Not Given Sennosides (Senokot) 17.2 mg PO Q12H PRN PRN Reason: Moderate Constipation Sodium Chloride (Ns Flush) 2 ml IV.FLUSH PRN PRN PRN Reason: FLUSH AFTER USING IV ACCESS Allergies Allergy/AdvReac Type Severity Reaction Status Date / Time No Known Allergies Allergy Verified 08/20/18 17:38 Home Medications Medication Instructions Recorded Confirmed Type No Known Home Medications 08/20/18 08/20/18 History Exam Vital signs: Vital Signs 08/20/18 17:38 08/20/18 17:49 08/20/18 21:25 Temperature 97.8 F Pulse Rate 97 H 92 H Respiratory Rate 21 21 18 Blood Pressure 169/77 H 174/86 H Pulse Oximetry 97 97 97 08/20/18 21:53 08/21/18 00:00 08/21/18 06:00 Temperature 97.7 F Pulse Rate 87 81 95 H Respiratory Rate 19 19 Blood Pressure 170/101 H 164/78 H Pulse Oximetry 96 96 08/21/18 08:00 08/21/18 09:00 Temperature 98.3 F Pulse Rate 80 81 Respiratory Rate 20 Blood Pressure 156/87 H Pulse Oximetry 97 Intake & Output 08/20/18 08/21/18 08/21/18 18:59 06:59 18:59 Intake Total 1820 / 1820 Balance 1820 / 1820 Weight 127.006 kg 127 kg Intake: IV 1100 / 1100 NS Inj 1,000 ML @ 100 mls/hr IV 1000 / 1000 .CONT .Q10H DAMARIS Rx#:[id number] Rocephin Inj 1,000 MG In NS Inj 100 / 100 100 ML @ 200 mls/hr IV.SIG ONCE ONE Rx#:[id number] Oral 720 / 720 Other: # Voids 5 Date of Last Bowel Movement 08/21/18 # Bowel Movements 2 Weight On Admission 127.006 kg - Constitutional no acute distress - Routine HEENT Exam Eye: Present: EOMI, PERRL ENT: Present: mucous membranes moist - Routine Neck Exam Absent: JVD - Routine Respiratory Exam Present: CTA bilaterally - Routine Cardiovascular Exam Present: RRR - Routine Abdominal Exam Present: soft, normoactive bowel sounds - Routine Extremities Exam Absent: edema - Routine Neurological Exam Present: CN II-XII intact. Absent: sensory deficit, motor deficit Results 08/21/18 06:20 08/21/18 06:20 Cardiac Enzymes 08/20/18 08/20/18 08/20/18 Range/Units 18:50 18:50 21:10 AST 35 (15-37) U/L CK-MB (CK-2) 3.4 (0.5-3.6) ng/mL Troponin I 0.12 H 0.13 H (0.02-0.05) ng/mL B-Natriuretic Peptide 68 (0-100) pg/mL 08/21/18 08/21/18 Range/Units 03:07 06:20 AST 29 (15-37) U/L CK-MB (CK-2) (0.5-3.6) ng/mL Troponin I 0.15 H (0.02-0.05) ng/mL B-Natriuretic Peptide (0-100) pg/mL Coagulation 08/20/18 08/20/18 Range/Units 18:50 18:50 PT 10.8 (9.8-11.6) sec B-Natriuretic Peptide 68 (0-100) pg/mL CBC 08/20/18 08/21/18 Range/Units 18:50 06:20 WBC 16.5 H 10.8 (4.0-11.0) th/mm3 RBC 4.72 4.15 L (4.50-5.90) mil/mm3 Hgb 14.7 13.1 (13.0-17.0) gm/dL Hct 44.1 38.8 L (39.0-51.0) % Plt Count 258 225 (150-450) th/mm3 Neut # (Auto) 13.7 H 7.1 (1.8-7.7) th/mm3 Lymph # (Auto) 1.8 2.5 (1.0-4.8) th/mm3 Rock # (Auto) 0.8 0.9 (0.0-0.9) th/mm3 Eos # (Auto) 0.0 0.2 (0.0-0.4) th/mm3 Baso # (Auto) 0.2 0.1 (0.0-0.2) th/mm3 Comprehensive Metabolic Panel 08/20/18 08/21/18 Range/Units 18:50 06:20 Sodium 138 141 (136-145) meq/L Potassium 4.6 3.6 D (3.5-5.1) meq/L Chloride 105 107 (98-107) meq/L Carbon Dioxide 22.6 23.4 (21.0-32.0) meq/L BUN 19 H 16 (7-18) mg/dL Creatinine 1.31 H 1.21 (0.60-1.30) mg/dL Calcium 8.8 8.6 (8.5-10.1) mg/dL AST 35 29 (15-37) U/L ALT 18 14 (12-78) U/L Alkaline Phosphatase 104 94 (45-117) U/L Total Protein 8.1 7.2 D (6.4-8.2) g/dL Albumin 3.7 3.4 (3.4-5.0) g/dL Intake and Output 08/20/18 08/21/18 08/21/18 22:59 06:59 14:59 Intake Total 100 / 100 1720 / 1720 Balance 100 / 100 1720 / 1720 Intake: IV 100 / 100 1000 / 1000 NS Inj 1,000 ML @ 100 mls/hr IV 1000 / 1000 .CONT .Q10H DAMARIS Rx#:[id number] Rocephin Inj 1,000 MG In NS Inj 100 / 100 100 ML @ 200 mls/hr IV.SIG ONCE ONE Rx#:[id number] Oral 720 / 720 Other: # Voids 5 Date of Last Bowel Movement 08/21/18 # Bowel Movements 2 Weight 127.006 kg 127 kg Weight On Admission 127.006 kg - Imaging and Cardiology Imaging: Impressions Chest X-Ray 08/20/18 17:56 CONCLUSION: 1. No acute cardiopulmonary disease. Lumbar Spine CT 08/20/18 17:56 CONCLUSION: 1. No acute fracture. Moderate degenerative disc disease. 2. At L5-S1 there is minimal retrolisthesis with foraminal stenosis, left greater than right. 3. At L2-3 there is a broad-based disc bulge or mild protrusion slightly worse on the right lateral recess encroachment. Assessment and Plan - Assessment (1) Generalized weakness Code(s): R53.1 - Weakness Status: Acute (2) Elevated troponin Code(s): R74.8 - Abnormal levels of other serum enzymes Status: Acute Plan: This patient has relatively atypical presentation. Patient has no symptoms of chest pain. Electrocardiogram is unremarkable. Troponin did trend slightly into the intermediate/positive range. Patient has no complaints. Patient does have renal insufficiency and I suspect that this troponin elevation is likely secondary to that. Patient is not a good candidate for any potential invasive strategy. Patient appears somewhat disheveled. I would favor conservative medical management. No point in doing a stress test if we were not going to proceed with anything invasive. Patient already ate breakfast here this morning. At this point I would plan for routine outpatient follow-up with primary care physician. No further cardiac workup at this time unless he develops symptoms. Okay for discharge from cardiac perspective. (3) Afib Code(s): I48.91 - Unspecified atrial fibrillation Status: Acute
--- NOTE | 2018-08-21 10:23 | P.PN ---
Subjective Interval history: Follow-up for generalized weakness, inability to ambulate, UTI. The patient is extremely hard of hearing, however is oriented to self, [facility] in [place], and July 2018. He states yesterday he remembers being on the bus when his legs just gave out. He states his back was also bothering him. He lives alone, and does grocery shopping on his own. He states he does not use a walker. Is explained to the patient that he has a urinary tract infection , however patient denies any symptoms including no fever/chills, abdominal pain , dysuria, or any other urinary complaints. The patient denies having any heart problems, although he does have a history of A. fib and was reportedly supposed to be on Coumadin in 2017 per EMR review. The patient states he only takes Tylenol sometimes, does not take any other medications. He denies any recent chest pain or shortness of breath. He denies any other medical complaints at this time. He wants to go home, although is agreeable to stay another night to follow-up on urine culture and cardiology evaluation. Physical Exam Vital signs: Vital Signs 08/20/18 17:38 08/20/18 17:49 08/20/18 21:25 Temperature 97.8 F Pulse Rate 97 H 92 H Respiratory Rate 21 21 18 Blood Pressure 169/77 H 174/86 H Pulse Oximetry 97 97 97 08/20/18 21:53 08/21/18 00:00 08/21/18 06:00 Temperature 97.7 F Pulse Rate 87 81 95 H Respiratory Rate 19 19 Blood Pressure 170/101 H 164/78 H Pulse Oximetry 96 96 08/21/18 08:00 08/21/18 09:00 Temperature 98.3 F Pulse Rate 80 81 Respiratory Rate 20 Blood Pressure 156/87 H Pulse Oximetry 97 Intake & Output 08/20/18 08/21/18 08/21/18 18:59 06:59 18:59 Intake Total 1820 / 1820 Balance 1820 / 1820 Weight 127.006 kg 127 kg Intake: IV 1100 / 1100 NS Inj 1,000 ML @ 100 mls/hr IV 1000 / 1000 .CONT .Q10H DAMARIS Rx#:[id number] Rocephin Inj 1,000 MG In NS Inj 100 / 100 100 ML @ 200 mls/hr IV.SIG ONCE ONE Rx#:[id number] Oral 720 / 720 Other: # Voids 5 Date of Last Bowel Movement 08/21/18 # Bowel Movements 2 Weight On Admission 127.006 kg Narrative: GENERAL: Well-nourished, well-developed pleasant obese elderly male patient in NAD. Very hard of hearing. SKIN: Warm and dry. No rash. HEENT: Normocephalic. Atraumatic. Pupils equal and round. Mucous membranes pink and moist. CARDIOVASCULAR: Irregular rate and rhythm. No murmur appreciated. RESPIRATORY: No accessory muscle use. Clear to auscultation. Breath sounds equal bilaterally. GASTROINTESTINAL: Abdomen soft, non-tender, nondistended. Normoactive bowel sounds x4. MUSCULOSKELETAL: No obvious deformities. 1+ bilateral lower extremity edema. NEUROLOGICAL: Awake and alert, oriented x4. No obvious cranial nerve deficits. Motor grossly within normal limits. Moving all extremities spontaneously. Normal speech. PSYCHIATRIC: Appropriate mood and affect; insight and judgment normal. Results - Labs CBC & Chem 7: 08/21/18 06:20 08/21/18 06:20 Laboratory Results - last 24 hr 08/20/18 08/20/18 08/20/18 18:50 18:50 18:50 WBC 16.5 H RBC 4.72 Hgb 14.7 Hct 44.1 MCV 93.3 MCH 31.1 MCHC 33.4 RDW 15.0 Plt Count 258 MPV 9.1 Neut % (Auto) 82.9 H Lymph % (Auto) 10.7 Dix[place] % (Auto) 5.0 Eos % (Auto) 0.2 Baso % (Auto) 1.2 Neut # (Auto) 13.7 H Lymph # (Auto) 1.8 [place] # (Auto) 0.8 Eos # (Auto) 0.0 Baso # (Auto) 0.2 WBC Differential . Differential Comment Auto diff final PT 10.8 INR 1.1 Sodium 138 Potassium 4.6 Chloride 105 Carbon Dioxide 22.6 Anion Gap 10 BUN 19 H Creatinine 1.31 H Estimated GFR 53 L Random Glucose 93 Calcium 8.8 Magnesium 2.3 Total Bilirubin 0.7 AST 35 ALT 18 Alkaline Phosphatase 104 Total Creatine Kinase 862 H CK-MB (CK-2) 3.4 CK-MB (CK-2) % 0.4 Troponin I 0.12 H B-Natriuretic Peptide Total Protein 8.1 Albumin 3.7 Urine Color Urine Clarity Urine pH Ur Specific [place] Urine Protein Urine Glucose (UA) Urine Ketones Urine Occult Blood Urine Nitrate Urine Bilirubin Urine Urobilinogen Ur Leukocyte Esterase Urine RBC Urine WBC Ur Squamous Epith Cells Urine Mucus Micro UA Comment Ur Microscopic Review Urine Culture Comments 08/20/18 08/20/18 08/20/18 18:50 18:50 21:10 WBC RBC Hgb Hct MCV MCH MCHC RDW Plt Count MPV Neut % (Auto) Lymph % (Auto) [place] % (Auto) Eos % (Auto) Baso % (Auto) Neut # (Auto) Lymph # (Auto) [place] # (Auto) Eos # (Auto) Baso # (Auto) WBC Differential Differential Comment PT INR Sodium Potassium Chloride Carbon Dioxide Anion Gap BUN Creatinine Estimated GFR Random Glucose Calcium Magnesium Total Bilirubin AST ALT Alkaline Phosphatase Total Creatine Kinase CK-MB (CK-2) CK-MB (CK-2) % Troponin I 0.13 H B-Natriuretic Peptide 68 Total Protein Albumin Urine Color Ema Urine Clarity Cloudy H Urine pH 5.0 Ur Specific [place] 1.028 Urine Protein 100 H Urine Glucose (UA) Negative Urine Ketones 20 Urine Occult Blood Large H Urine Nitrate Negative Urine Bilirubin Negative Urine Urobilinogen Less than 2 Ur Leukocyte Esterase Trace H Urine RBC 82 H Urine WBC 48 H Ur Squamous Epith Cells 1 Urine Mucus Few H Micro UA Comment Culture indicated Ur Microscopic Review Not Reportable Urine Culture Comments Culture indicated 08/21/18 08/21/18 08/21/18 03:07 06:20 06:20 WBC 10.8 RBC 4.15 L Hgb 13.1 Hct 38.8 L MCV 93.5 MCH 31.5 MCHC 33.7 RDW 15.1 Plt Count 225 MPV 9.3 Neut % (Auto) 65.6 Lymph % (Auto) 23.5 Dix[place] % (Auto) 8.6 H Eos % (Auto) 1.6 Baso % (Auto) 0.7 Neut # (Auto) 7.1 Lymph # (Auto) 2.5 [place] # (Auto) 0.9 Eos # (Auto) 0.2 Baso # (Auto) 0.1 WBC Differential . Differential Comment Auto diff final PT INR Sodium 141 Potassium 3.6 D Chloride 107 Carbon Dioxide 23.4 Anion Gap 11 BUN 16 Creatinine 1.21 Estimated GFR 58 L Random Glucose 89 Calcium 8.6 Magnesium Total Bilirubin 0.5 AST 29 ALT 14 Alkaline Phosphatase 94 Total Creatine Kinase CK-MB (CK-2) CK-MB (CK-2) % Troponin I 0.15 H B-Natriuretic Peptide Total Protein 7.2 D Albumin 3.4 Urine Color Urine Clarity Urine pH Ur Specific [place] Urine Protein Urine Glucose (UA) Urine Ketones Urine Occult Blood Urine Nitrate Urine Bilirubin Urine Urobilinogen Ur Leukocyte Esterase Urine RBC Urine WBC Ur Squamous Epith Cells Urine Mucus Micro UA Comment Ur Microscopic Review Urine Culture Comments - Imaging Impressions Chest X-Ray 08/20/18 17:56 CONCLUSION: 1. No acute cardiopulmonary disease. Lumbar Spine CT 08/20/18 17:56 CONCLUSION: 1. No acute fracture. Moderate degenerative disc disease. 2. At L5-S1 there is minimal retrolisthesis with foraminal stenosis, left greater than right. 3. At L2-3 there is a broad-based disc bulge or mild protrusion slightly worse on the right lateral recess encroachment. Assessment and Plan - Assessment (1) Afib Code(s): I48.91 - Unspecified atrial fibrillation Status: Acute (2) Generalized weakness Code(s): R53.1 - Weakness Status: Acute (3) Alteration in self-care ability Code(s): R53.81 - Other malaise Status: Acute (4) Elevated troponin Code(s): R74.8 - Abnormal levels of other serum enzymes Status: Acute (5) Back pain Code(s): M54.9 - Dorsalgia, unspecified Status: Acute - Plan 73-year-old male with a PMH of HTN, A-fib and [place] who was brought to the ER by EMS for c/o generalized weakness and inability to ambulate. Generalized Weakness/Inability to Ambulate: likely combination of obesity/ physical deconditioning w/ acute UTI -treat infection as below -Consult PT for eval/tx -Consult Case Management for assistance w/ discharge planning Back Pain: acute on chronic, no injury/trauma -CT L-Spine reviewed, no acute fracture, shows L5-S1 there is minimal retrolisthesis with foraminal stenosis; L2-3 there is a broad-based disc bulge or mild protrusion -Analgesics/antiemetics as needed -PT consulted as above. UTI: UA with leuks/WBCs -Continue IV Rocephin -Monitor urine culture -Give IVF for hydration PURVI: Creatinine 1.31, previously 1.13 on 05/20/17, likely secondary to above -IVF for hydration -Avoid nephrotoxins -repeat labs. A-fib: Chronic, appears to be non-compliant w/ medications, initially HR 120's , now HR 90-100's -although [id number] score of at least 3 (age/HTN), patient likely poor candidate for anticoagulation due to severe noncompliance and high risk for falls -started on Metoprolol and ASA -cardiology consulted, no further input, signed off Elevated Trop: No complaints of chest pain -Troponins trended 0.12, 0.13, 0.15 (elevated from previous baseline around 0.06) -Monitor on telemetry -Consulted cardiology, recommends medical management, no further work up/ intervention, cleared for discharge DVT Prophylaxis: Heparin sq Discharge Planning: Possible discharge 08/22 pending urine culture and PT evaluation. Case management to assist with discharge planning.
--- NOTE | 2018-08-21 16:40 | ECG ---
Date Performed: 08/20/2018 Time Performed: 18:50:01 PTAGE: 73 years EKG: ATRIAL FIBRILLATION MINIMAL ST DEPRESSION Since the previous tracing, no significant change noted ABNORMAL RHYTHM ECG PREVIOUS TRACING : 05/22/2017 14.56 DOCTOR: Tania Robbins Interpretating Date/Time 08/21/2018 16:37:39
[2018-08-22] MEDS: Sod Chloride 0.9% Inj 1,000 ML IV.CONT SCH ×2 (04:32→16:29)
--- NOTE | 2018-08-22 09:22 | P.PN ---
Subjective Interval history: Feels tired. Eating fairly well; Some chest pain overnight No sob Hard of hearing Physical Exam Vital signs: Vital Signs 08/21/18 12:00 08/21/18 12:25 08/21/18 16:03 Temperature 98.2 F 98.4 F Pulse Rate 93 H 85 76 Respiratory Rate 20 18 Blood Pressure 132/58 L 160/90 H Pulse Oximetry 98 95 08/21/18 17:17 08/21/18 20:00 08/22/18 00:00 Temperature 97.9 F 97.9 F Pulse Rate 94 H 81 76 Respiratory Rate 19 19 Blood Pressure 167/79 H 157/63 H Pulse Oximetry 97 96 08/22/18 03:35 08/22/18 07:25 08/22/18 08:27 Temperature 98.6 F Pulse Rate 82 88 77 Respiratory Rate 19 18 Blood Pressure 172/106 H 160/97 H Pulse Oximetry 97 96 Intake & Output 08/21/18 08/22/18 08/22/18 18:59 06:59 18:59 Intake Total 1000 / 1000 1100 / 1100 Balance 1000 / 1000 1100 / 1100 Intake: IV 1000 / 1000 1100 / 1100 NS Inj 1,000 ML @ 100 mls/hr IV 1000 / 1000 1000 / 1000 .CONT .Q10H DAMARIS Rx#:[id number] Rocephin Inj 1,000 MG In NS Inj 100 / 100 100 ML @ 200 mls/hr IV.SIG Q24H [facility]ARIS Rx#:[id number] Other: # Voids 5 Date of Last Bowel Movement 08/22/18 # Bowel Movements 1 Narrative: GENERAL: Elderly patient, unkept, well-nourished, well-developed pleasant obese male, in NAD. Very hard of hearing. CARDIOVASCULAR: Irregular rate and rhythm. No murmur appreciated. RESPIRATORY: No accessory muscle use. Clear to auscultation. Breath sounds equal bilaterally. GASTROINTESTINAL: Abdomen soft, non-tender, nondistended. Normoactive bowel sounds x4. MUSCULOSKELETAL: No obvious deformities. 1+ bilateral lower extremity edema. NEUROLOGICAL: Awake and alert, oriented x4. No obvious cranial nerve deficits. Motor grossly within normal limits. Moving all extremities spontaneously. Normal speech. Hard of hearing. PSYCHIATRIC: Appropriate mood and affect; insight and judgment normal. Results - Labs CBC & Chem 7: 08/21/18 06:20 08/21/18 06:20 Laboratory Results - last 24 hr 08/20/18 18:50 Urine Color Ema Urine Clarity Cloudy H Urine pH 5.0 Ur Specific [place] 1.028 Urine Protein 100 H Urine Glucose (UA) Negative Urine Ketones 20 Urine Occult Blood Large H Urine Nitrate Negative Urine Bilirubin Negative Urine Urobilinogen Less than 2 Ur Leukocyte Esterase Trace H Urine RBC 82 H Urine WBC 48 H Ur Squamous Epith Cells 1 Urine Mucus Few H Micro UA Comment Culture indicated Urine Culture Comments Culture indicated Microbiology 08/20/18 18:50 Catheterized Urine Urine Culture - Preliminary Staphylococcus coag positive Assessment and Plan - Assessment (1) Afib Code(s): I48.91 - Unspecified atrial fibrillation Status: Acute (2) Generalized weakness Code(s): R53.1 - Weakness Status: Acute (3) Alteration in self-care ability Code(s): R53.81 - Other malaise Status: Acute (4) Elevated troponin Code(s): R74.8 - Abnormal levels of other serum enzymes Status: Acute (5) Back pain Code(s): M54.9 - Dorsalgia, unspecified Status: Acute - Plan 73-year-old male with a PMH of HTN, A-fib and [place] who was brought to the ER by EMS for c/o generalized weakness and inability to ambulate. Generalized Weakness/Inability to Ambulate: likely combination of obesity/ physical deconditioning w/ acute UTI -treat infection as below -Consult PT for eval/tx -Consult Case Management for assistance w/ discharge planning Back Pain: acute on chronic, no injury/trauma -CT L-Spine reviewed, no acute fracture, shows L5-S1 there is minimal retrolisthesis with foraminal stenosis; L2-3 there is a broad-based disc bulge or mild protrusion -Analgesics/antiemetics as needed -PT consulted as above. UTI: UA with leuks/WBCs -Continue IV Rocephin -Monitor urine culture -Give IVF for hydration PURVI: Creatinine 1.31, previously 1.13 on 05/20/17, likely secondary to above -IVF for hydration -Avoid nephrotoxins -repeat labs. A-fib: Chronic, appears to be non-compliant w/ medications, initially HR 120's , now HR 90-100's -although [id number] score of at least 3 (age/HTN), patient likely poor candidate for anticoagulation due to severe noncompliance and high risk for falls -started on Metoprolol and ASA -cardiology consulted, no further input, signed off Elevated Trop: No complaints of chest pain -Troponins trended 0.12, 0.13, 0.15 (elevated from previous baseline around 0.06) -Monitor on telemetry -Consulted cardiology, recommends medical management, no further work up/ intervention, cleared for discharge DVT Prophylaxis: Heparin sq Discharge Planning: Possible discharge tomorrow if improves, pending urine culture and PT evaluation. Case management to assist with discharge planning.
[2018-08-22] MEDS: Metoprolol Tartrate 25 MG Tablet PO SCH ×2 (10:07→21:52)
[2018-08-22] MEDS: Heparin - SQ 10,000 UNITS/ML Vial SQ SCH ×2 (10:07→21:52)
[2018-08-22] MEDS: Senna/Docusate Sodium 8.6/50 MG Tablet PO SCH ×2 (10:08→21:51)
[2018-08-23] MEDS: Sod Chloride 0.9% Inj 1,000 ML IV.CONT SCH ×4 (01:01→20:48)
[2018-08-23 07:40] LABS: Bilirubin,Urine Negative (Negative); Clarity,Urine Hazy (Clear); Color,Urine Red (Yellw/Straw); Glucose,Urine (UA) Negative (Negative); Leukocyte Esterase,Urine Negative (Negative); Nitrite,Urine Negative (Negative); Specific Gravity,Urine 1.008 (1.002-1.035)
--- NOTE | 2018-08-23 08:56 | P.DCO ---
- Diagnosis (1) Acute UTI Status: Acute (2) Dehydration Status: Acute (3) Generalized weakness Status: Acute (4) Alteration in self-care ability Status: Acute (5) Elevated troponin Status: Acute (6) Afib Status: Acute (7) Back pain Status: Acute - Physical Therapy Order: Evaluate and treat - Home Health Nursing Order: Medical education, Signs/symptoms of disease process, Medication education-adverse effect, Nursing assessment with vital signs - Management Scientist Order: To evaluate: Living conditions/environment Order: To provide: Community services - Case Management Consult Yes - Certification I have seen patient Samuel Almodovar on 08/23/18. My clinical findings support the need for the requested home health care services because: Limited mobility due to disease progression, Patient has SOB I certify that my clinical findings support that this patient is homebound because: Post-op weakness, Impaired cognitive ability/safety
--- NOTE | 2018-08-23 08:56 | P.DS ---
Date of admission: 08/20/18 20:22 Primary care physician: No Primary Care Physician Brief History from admission: This is a 73-year-old male with a PMH of HTN, A-fib and [place] who was brought to the ER by EMS for c/o generalized weakness and inability to ambulate. Pt is very poor historian, unable to provide many details. Per report, pt was asked to exit the [employer] bus he was riding in for unknown reason, apparently pt sat on the bus bench and was unable to get up at which point bystanders called EMS. Does note back pain, but no recent injury/trauma. On arrival, noted to be in A-fib, HR 90-100's, pt does not know medications, likely non-compliant. BP 169/ 77, HR 97, O2 sat 97% on RA, Afebrile. WBC 16.5. Creatinine 1.31, previously 1.13 on 05/20/2017. Troponin 0 0.12, previously 0.07, 0.06 on previous admission 05/19/2017. No complaints of chest pain. CXR with no acute findings. CT L-spine no acute fracture. Pt unable to ambulate due to weakness, unsafe discharge. DS: Diagnosis - Discharge Diagnosis (1) Acute UTI Status: Acute (2) Dehydration Status: Acute (3) Generalized weakness Status: Acute (4) Alteration in self-care ability Status: Acute (5) Elevated troponin Status: Acute (6) Afib Status: Acute (7) Back pain Status: Acute DS: Medications - Discharge Medications Prescriptions: aspirin 81 mg PO DAILY #30 tab metoprolol tartrate 25 mg PO BID #60 tab DS: Summary - Time Spent with Patient Total time spent providing and/or coordinating discharge services: - Quality: VTE Deep Vein Thrombosis/Pulmonary Embolism Present on Admission: No Exam Vital signs: Vital Signs 08/22/18 12:00 08/22/18 16:00 08/22/18 23:51 Temperature 98.7 F 98.9 F 97.8 F Pulse Rate 84 73 97 H Respiratory Rate 18 16 19 Blood Pressure 138/79 163/76 H 197/94 H Pulse Oximetry 96 96 98 08/23/18 02:09 08/23/18 04:00 08/23/18 07:42 Temperature 98.0 F 97.7 F Pulse Rate 92 H 99 H 77 Respiratory Rate 18 18 Blood Pressure 165/85 H 157/94 H 171/81 H Pulse Oximetry 99 97 Intake & Output 08/22/18 08/23/18 08/23/18 18:59 06:59 18:59 Intake Total 1000 / 1000 1100 / 1100 Balance 1000 / 1000 1100 / 1100 Intake: IV 1000 / 1000 1100 / 1100 NS Inj 1,000 ML @ 100 mls/hr IV 1000 / 1000 1000 / 1000 .CONT .Q10H [facility]IS Rx#:[id number] Rocephin Inj 1,000 MG In NS Inj 100 / 100 100 ML @ 200 mls/hr IV.SIG Q24H [facility]ARIS Rx#:[id number] Other: # Voids 8 Date of Last Bowel Movement 08/22/18 Results Labs on day of discharge: Labs from last 24 hours 08/23/18 06:50 Urine Color Red Urine Clarity Hazy H Urine pH 6.0 Ur Specific [place] 1.008 Urine Protein 30 H Urine Glucose (UA) Negative Urine Ketones Trace H Urine Occult Blood Large H Urine Nitrate Negative Urine Bilirubin Negative Urine Urobilinogen Less than 2 Ur Leukocyte Esterase Negative Urine RBC Urine WBC 4 Micro UA Comment Culture not ind Ur Microscopic Review Not Reportable Urine Culture Comments Culture not ind - Impressions ITS Impressions Chest X-Ray 08/20/18 17:56 CONCLUSION: 1. No acute cardiopulmonary disease. Lumbar Spine CT 08/20/18 17:56 CONCLUSION: 1. No acute fracture. Moderate degenerative disc disease. 2. At L5-S1 there is minimal retrolisthesis with foraminal stenosis, left greater than right. 3. At L2-3 there is a broad-based disc bulge or mild protrusion slightly worse on the right lateral recess encroachment. Discharge Plan - Discharge Disposition Patient Disposition: /Home Health Service - Discharge Condition Condition: Stable - Discharge Order Discharge Orders: Discharge Order (Routine); Ordered 08/23/18 Ordered By: Candie Howell Cardiology Clear for Discharge (Routine); Ordered 08/21/18 Ordered By: Janusz Torres - Discharge Details Anticipated Discharge Date: 08/23/18 - Physicians Team Primary Care Provider: Primary Care Calvini,Dea Attending Provider: Candie Howell Other Providers: Janusz Torres MD
[2018-08-23] MEDS: Senna/Docusate Sodium 8.6/50 MG Tablet PO SCH ×2 (10:22→20:49)
[2018-08-23] MEDS: Heparin - SQ 10,000 UNITS/ML Vial SQ SCH ×2 (10:23→20:46)
[2018-08-23] MEDS: Metoprolol Tartrate 25 MG Tablet PO SCH ×2 (10:23→20:47)
--- NOTE | 2018-08-23 10:50 | P.PN ---
Subjective Interval history: With hematuria, will consult urology Patient is able to ambulate in the room. Says he feels tired however. Eating well. No fever or chills. No n/v/d/c. Physical Exam Vital signs: Vital Signs 08/22/18 12:00 08/22/18 16:00 08/22/18 23:51 Temperature 98.7 F 98.9 F 97.8 F Pulse Rate 84 73 97 H Respiratory Rate 18 16 19 Blood Pressure 138/79 163/76 H 197/94 H Pulse Oximetry 96 96 98 08/23/18 02:09 08/23/18 04:00 08/23/18 07:42 Temperature 98.0 F 97.7 F Pulse Rate 92 H 99 H 77 Respiratory Rate 18 18 Blood Pressure 165/85 H 157/94 H 171/81 H Pulse Oximetry 99 97 Intake & Output 08/22/18 08/23/18 08/23/18 18:59 06:59 18:59 Intake Total 1000 / 1000 1100 / 1100 Balance 1000 / 1000 1100 / 1100 Intake: IV 1000 / 1000 1100 / 1100 NS Inj 1,000 ML @ 100 mls/hr IV 1000 / 1000 1000 / 1000 .CONT .Q10H [facility]ARIS Rx#:[id number] Rocephin Inj 1,000 MG In NS Inj 100 / 100 100 ML @ 200 mls/hr IV.SIG Q24H [facility]ARIS Rx#:[id number] Other: # Voids 8 Date of Last Bowel Movement 08/22/18 Narrative: GENERAL: Elderly patient, unkept, well-nourished, well-developed pleasant obese male, in NAD. Very hard of hearing. CARDIOVASCULAR: Irregular rate and rhythm. No murmur appreciated. RESPIRATORY: No accessory muscle use. Clear to auscultation. Breath sounds equal bilaterally. GASTROINTESTINAL: Abdomen soft, non-tender, nondistended. Normoactive bowel sounds x4. MUSCULOSKELETAL: No obvious deformities. 1+ bilateral lower extremity edema. NEUROLOGICAL: Awake and alert, oriented x4. No obvious cranial nerve deficits. Motor grossly within normal limits. Moving all extremities spontaneously. Normal speech. Hard of hearing. PSYCHIATRIC: Appropriate mood and affect; insight and judgment normal. Results - Labs CBC & Chem 7: 08/21/18 06:20 08/21/18 06:20 Laboratory Results - last 24 hr 08/23/18 06:50 Urine Color Red Urine Clarity Hazy H Urine pH 6.0 Ur Specific [place] 1.008 Urine Protein 30 H Urine Glucose (UA) Negative Urine Ketones Trace H Urine Occult Blood Large H Urine Nitrate Negative Urine Bilirubin Negative Urine Urobilinogen Less than 2 Ur Leukocyte Esterase Negative Urine RBC Urine WBC 4 Micro UA Comment Culture not ind Ur Microscopic Review Not Reportable Urine Culture Comments Culture not ind Microbiology 08/20/18 18:50 Catheterized Urine Urine Culture - Final Staphylococcus aureus Assessment and Plan - Assessment (1) Acute UTI Code(s): N39.0 - Urinary tract infection, site not specified Status: Acute (2) Dehydration Code(s): E86.0 - Dehydration Status: Acute (3) Generalized weakness Code(s): R53.1 - Weakness Status: Acute (4) Alteration in self-care ability Code(s): R53.81 - Other malaise Status: Acute (5) Elevated troponin Code(s): R74.8 - Abnormal levels of other serum enzymes Status: Acute (6) Afib Code(s): I48.91 - Unspecified atrial fibrillation Status: Acute (7) Back pain Code(s): M54.9 - Dorsalgia, unspecified Status: Acute - Plan 73-year-old male with a PMH of HTN, A-fib and [place] who was brought to the ER by EMS for c/o generalized weakness and inability to ambulate. Hematuria: consult urology. Note the patient is not on anticoagulation. Monitor H/H and transfuse if HGB < 7 or if patient is symptomatic. Generalized Weakness/Inability to Ambulate: likely combination of obesity/ physical deconditioning w/ acute UTI -treat infection as below -Consult PT for eval/tx -Consult Case Management for assistance w/ discharge planning Back Pain: acute on chronic, no injury/trauma -CT L-Spine reviewed, no acute fracture, shows L5-S1 there is minimal retrolisthesis with foraminal stenosis; L2-3 there is a broad-based disc bulge or mild protrusion -Analgesics/antiemetics as needed -PT consulted as above. UTI: UA with leuks/WBCs -Continue IV Rocephin -Monitor urine culture -Give IVF for hydration PURVI: Creatinine 1.31, previously 1.13 on 05/20/17, likely secondary to above -IVF for hydration -Avoid nephrotoxins -repeat labs. A-fib: Chronic, appears to be non-compliant w/ medications, initially HR 120's , now HR 90-100's -although [id number] score of at least 3 (age/HTN), patient likely poor candidate for anticoagulation due to severe noncompliance and high risk for falls -started on Metoprolol and ASA -cardiology consulted, no further input, signed off Elevated Trop: No complaints of chest pain -Troponins trended 0.12, 0.13, 0.15 (elevated from previous baseline around 0.06) -Monitor on telemetry -Consulted cardiology, recommends medical management, no further work up/ intervention, cleared for discharge DVT Prophylaxis: Heparin sq Discharge Planning: Possible discharge tomorrow if improves, pending urine culture and PT evaluation. Case management to assist with discharge planning.
--- NOTE | 2018-08-23 13:29 | P.CONURO ---
History of Present Illness Service: Urology Consult date: 08/23/18 Requesting Physician: Candie Howell Reason for Consult: Hematuria Primary Care Provider: No Primary Care Physician Chief Complaint: Generalized weakness History of Present Illness: This is a 73-year-old male with a PMH of HTN, A-fib and [place] who was brought to the ER by EMS for c/o generalized weakness and inability to ambulate. Pt is very poor historian, unable to provide many details mostly due to his issues with hearing. Per report, pt was asked to exit the [employer] bus he was riding in for unknown reason, apparently pt sat on the bus bench and was unable to get up at which point bystanders called EMS. Does note back pain, but no recent injury /trauma. On arrival, noted to be in A-fib, HR 90-100's, pt does not know medications, likely non-compliant. BP 169/77, HR 97, O2 sat 97% on RA, Afebrile. WBC 16.5. Creatinine 1.31, previously 1.13 on 05/20/2017. Troponin 0 0.12, previously 0.07, 0.06 on previous admission 05/19/2017. No complaints of chest pain. CXR with no acute findings. CT L-spine no acute fracture. Pt unable to ambulate due to weakness, unsafe discharge. Urology consulted due to resently started hematuria. Pt denies any voiding issues, but states that gets urge and occasionally UUI. Urine in his urinal is light pink color. + UC for Staph infection. No f/c/n/v, Cr is stable. He is on Heparin inj BID and also on IV Rocephin. Review of Systems All other systems reviewed negative except as stated in HPI PMFSH - History History Provided By: Patient - Medical History Medical History: Medical History (Last Reviewed 08/23/18 @ 12:11 by Nabila Etienne) Deficient knowledge of lower extremity surgery - Tobacco History Second Hand Smoke Exposure: No Tobacco Use In Past 30 Days: Yes Smoking Status: Never smoker Tobacco Type: Pipe - Alcohol History How Often Do You Have a Drink Containing Alcohol: Never - Substance Use History Substance History: No History of Abuse - Travel History Recent Travel in the [place] Within the Last 8 Weeks: No Recent Travel Out of the Country Within the Last 8 Weeks: No - Immunization History Tetanus Immunization: Unsure Medications and Allergies Active Medications: Active Medications Acetaminophen (Tylenol) 650 mg PO Q4H PRN PRN Reason: Temp > 100.4 Hydrocodone Bitart/Acetaminophen ([place] 10/325) 1 tab PO Q4H PRN PRN Reason: PAIN 6-10 Last Admin: 08/22/18 12:51 Dose: 1 tab Hydrocodone Bitart/Acetaminophen ([place] 5/325) 1 tab PO Q4H PRN PRN Reason: PAIN 3-5 Al Hydroxide/Mg Hydroxide (Milk Of Magnesia Liq) 30 ml PO Q12H PRN PRN Reason: Mild Constipation Aspirin (Ecotrin) 81 mg PO DAILY [facility] Last Admin: 08/23/18 10:23 Dose: 81 mg Bisacodyl (Dulcolax Supp) 10 mg RECTAL DAILY PRN PRN Reason: SEVERE CONSITIPATION Heparin Sodium (Porcine) (Heparin Inj) 5,000 units SQ Q12H [facility] Last Admin: 08/23/18 10:23 Dose: 5,000 units Sodium Chloride (Ns Inj) 1,000 mls @ 0 mls/hr IV.SIG BOLUS [facility] Ceftriaxone Sodium 1,000 mg/ (Sodium Chloride) 100 mls @ 200 mls/hr IV.SIG Q24H [facility] Last Infusion: 08/22/18 23:18 Dose: Infused Sodium Chloride (Ns Inj) 1,000 mls @ 100 mls/hr IV.CONT .Q10H [facility] Last Admin: 08/23/18 12:18 Dose: 100 mls/hr Lactulose (Lactulose Liq) 30 ml PO DAILY PRN PRN Reason: SEVERE CONSITIPATION Metoprolol Tartrate (Lopressor) 25 mg PO BID [facility] Last Admin: 08/23/18 10:23 Dose: 25 mg Ondansetron HCl (Zofran Inj) 4 mg IV.PUSH Q6H PRN PRN Reason: NAUSEA OR VOMITING Senna/Docusate Sodium (Tiffanie-Colace) 1 tab PO BID [facility] Last Admin: 08/23/18 10:22 Dose: 1 tab Sennosides (Senokot) 17.2 mg PO Q12H PRN PRN Reason: Moderate Constipation Sodium Chloride (Ns Flush) 2 ml IV.FLUSH PRN PRN PRN Reason: FLUSH AFTER USING IV ACCESS Allergies Allergy/AdvReac Type Severity Reaction Status Date / Time No Known Allergies Allergy Verified 08/20/18 17:38 Physical Exam Vital Signs - 24 hr 08/22/18 16:00 08/22/18 23:51 08/23/18 02:09 Temperature 98.9 F 97.8 F Pulse Rate 73 97 H 92 H Respiratory Rate 16 19 Blood Pressure 163/76 H 197/94 H 165/85 H Pulse Oximetry 96 98 08/23/18 04:00 08/23/18 07:42 08/23/18 11:52 Temperature 98.0 F 97.7 F 97.7 F Pulse Rate 99 H 77 81 Respiratory Rate 18 18 20 Blood Pressure 157/94 H 171/81 H 145/83 H Pulse Oximetry 99 97 98 Physical Exam: GENERAL: This is a well-nourished, well-developed patient, in no apparent distress. SKIN: No rashes, ecchymoses or lesions. Cool and dry. HEAD: Atraumatic. Normocephalic. CARDIOVASCULAR: Regular rate and rhythm without murmurs, gallops, or rubs. RESPIRATORY: Clear to auscultation. Breath sounds equal bilaterally. No wheezes , rales, or rhonchi. GASTROINTESTINAL: Abdomen soft, non-tender GENITOURINARY: No CVAT MUSCULOSKELETAL: Extremities without clubbing, cyanosis, or edema. NEUROLOGICAL: Awake and alert. Laboratory Results - last 24 hr 08/23/18 06:50 Urine Color Red Urine Clarity Hazy H Urine pH 6.0 Ur Specific [place] 1.008 Urine Protein 30 H Urine Glucose (UA) Negative Urine Ketones Trace H Urine Occult Blood Large H Urine Nitrate Negative Urine Bilirubin Negative Urine Urobilinogen Less than 2 Ur Leukocyte Esterase Negative Urine RBC Urine WBC 4 Micro UA Comment Culture not ind Ur Microscopic Review Not Reportable Urine Culture Comments Culture not ind Microbiology 08/20/18 18:50 Urine Culture - Final Catheterized Urine Staphylococcus aureus Result Diagrams: 08/21/18 06:20 08/21/18 06:20 Imaging: ITS Impressions Chest X-Ray 08/20/18 17:56 CONCLUSION: 1. No acute cardiopulmonary disease. Lumbar Spine CT 08/20/18 17:56 CONCLUSION: 1. No acute fracture. Moderate degenerative disc disease. 2. At L5-S1 there is minimal retrolisthesis with foraminal stenosis, left greater than right. 3. At L2-3 there is a broad-based disc bulge or mild protrusion slightly worse on the right lateral recess encroachment. Assessment and Plan - Plan 73y.o m with history as per HPI Urology consulted for Hematuria He is on anticoag Has + Urine culture as well - No acute intervention needed. - Continue care as per primary team - Renal US can be performed to r/o other hematuria causes - Treat UTI according to C&S - Bladder scan after voiding to r/o retention. Start Flomax daily - Pt to see a urologist as an outpt for possible cysto Discussed Condition With: Dr Lucas ALVARADO attending
[2018-08-24] MEDS: Sod Chloride 0.9% Inj 1,000 ML IV.CONT SCH (07:57)
--- NOTE | 2018-08-24 08:12 | P.DS ---
Date of admission: 08/20/18 20:22 Primary care physician: No Primary Care Physician Brief History from admission: This is a 73-year-old male with a PMH of HTN, A-fib and [place] who was brought to the ER by EMS for c/o generalized weakness and inability to ambulate. Pt is very poor historian, unable to provide many details. Per report, pt was asked to exit the [employer] bus he was riding in for unknown reason, apparently pt sat on the bus bench and was unable to get up at which point bystanders called EMS. Does note back pain, but no recent injury/trauma. On arrival, noted to be in A-fib, HR 90-100's, pt does not know medications, likely non-compliant. BP 169/ 77, HR 97, O2 sat 97% on RA, Afebrile. WBC 16.5. Creatinine 1.31, previously 1.13 on 05/20/2017. Troponin 0 0.12, previously 0.07, 0.06 on previous admission 05/19/2017. No complaints of chest pain. CXR with no acute findings. CT L-spine no acute fracture. Pt unable to ambulate due to weakness, unsafe discharge. DS: Diagnosis - Discharge Diagnosis (1) Acute UTI Status: Acute (2) Dehydration Status: Acute (3) Generalized weakness Status: Acute (4) Alteration in self-care ability Status: Acute (5) Elevated troponin Status: Acute (6) Afib Status: Acute (7) Back pain Status: Acute DS: Medications - Discharge Medications Prescriptions: aspirin 81 mg PO DAILY #30 tab ciprofloxacin HCl [Cipro] 250 mg PO Q12H #10 tab metoprolol tartrate 25 mg PO BID #60 tab tamsulosin [Flomax] 0.4 mg PO DAILY #30 cap DS: Summary Hospital Course: 73-year-old male with a PMH of HTN, A-fib and [place] who was brought to the ER by EMS for c/o generalized weakness and inability to ambulate. Patient recommends PT as outpatient. Patient was also noted with hematuria. Started Flomax per urology. Patient to follow-up as outpatient with urology cleared for discharge. Patient also noted with elevated troponin and cardiology was consulted. Consulted cardiology, recommends medical management, no further work up/ intervention, cleared for discharge Patient improved significantly. He is discharged home with home health in stable condition to follow-up with PCP and consultants as outpatient. Hematuria: consult urology. Note the patient is not on anticoagulation. Monitor H/H and transfuse if HGB < 7 or if patient is symptomatic. Started Flomax per urology. Patient to follow-up as outpatient with urology cleared for discharge. Generalized Weakness/Inability to Ambulate: likely combination of obesity/ physical deconditioning w/ acute UTI -treat infection as below -Consult PT for eval/tx -Consult Case Management for assistance w/ discharge planning Back Pain: acute on chronic, no injury/trauma -CT L-Spine reviewed, no acute fracture, shows L5-S1 there is minimal retrolisthesis with foraminal stenosis; L2-3 there is a broad-based disc bulge or mild protrusion -Analgesics/antiemetics as needed -PT consulted as above. UTI: UA with leuks/WBCs -Continue IV Rocephin -Monitor urine culture -Give IVF for hydration PURVI: Creatinine 1.31, previously 1.13 on 05/20/17, likely secondary to above -IVF for hydration -Avoid nephrotoxins -repeat labs. A-fib: Chronic, appears to be non-compliant w/ medications, initially HR 120's , now HR 90-100's -although [id number] score of at least 3 (age/HTN), patient likely poor candidate for anticoagulation due to severe noncompliance and high risk for falls -started on Metoprolol and ASA -cardiology consulted, no further input, signed off Elevated Trop: No complaints of chest pain -Troponins trended 0.12, 0.13, 0.15 (elevated from previous baseline around 0.06) -Monitor on telemetry -Consulted cardiology, recommends medical management, no further work up/ intervention, cleared for discharge - Time Spent with Patient Total time spent providing and/or coordinating discharge services: Greater than 30 minutes - Quality: VTE Deep Vein Thrombosis/Pulmonary Embolism Present on Admission: No Exam Vital signs: Vital Signs 08/23/18 11:08 08/23/18 11:52 08/23/18 16:09 Temperature 97.7 F 98.5 F Pulse Rate 71 81 77 Respiratory Rate 20 18 Blood Pressure 145/83 H 140/71 Pulse Oximetry 98 97 08/23/18 20:00 08/24/18 01:30 Temperature 97.5 F L Pulse Rate 76 97 H Respiratory Rate 19 Blood Pressure 158/85 H 148/94 H Pulse Oximetry 96 Intake & Output 08/23/18 08/24/18 08/24/18 18:59 06:59 18:59 Intake Total 240 / 240 220 / 220 Balance 240 / 240 220 / 220 Weight 127 kg Intake: IV 100 / 100 Rocephin Inj 1,000 MG In NS Inj 100 / 100 100 ML @ 200 mls/hr IV.SIG Q24H [facility] Rx#:[id number] Oral 240 / 240 120 / 120 Other: # Voids 2 2 Date of Last Bowel Movement 08/22/18 Narrative: GENERAL: Elderly patient, unkept, well-nourished, well-developed pleasant obese male, in NAD. Very hard of hearing. CARDIOVASCULAR: Irregular rate and rhythm. No murmur appreciated. RESPIRATORY: No accessory muscle use. Clear to auscultation. Breath sounds equal bilaterally. GASTROINTESTINAL: Abdomen soft, non-tender, nondistended. Normoactive bowel sounds x4. MUSCULOSKELETAL: No obvious deformities. 1+ bilateral lower extremity edema. NEUROLOGICAL: Awake and alert, oriented x4. No obvious cranial nerve deficits. Motor grossly within normal limits. Moving all extremities spontaneously. Normal speech. Hard of hearing. PSYCHIATRIC: Appropriate mood and affect; insight and judgment normal. Results Procedures completed during hospitalization: no procedures - Impressions ITS Impressions Chest X-Ray 08/20/18 17:56 CONCLUSION: 1. No acute cardiopulmonary disease. Lumbar Spine CT 08/20/18 17:56 CONCLUSION: 1. No acute fracture. Moderate degenerative disc disease. 2. At L5-S1 there is minimal retrolisthesis with foraminal stenosis, left greater than right. 3. At L2-3 there is a broad-based disc bulge or mild protrusion slightly worse on the right lateral recess encroachment. Discharge Plan - Discharge Disposition Patient Disposition: W/Home Health Service - Discharge Condition Condition: Stable - Discharge Order Discharge Orders: Discharge Order (Routine); Ordered 08/24/18 Ordered By: Candie Howell Cardiology Clear for Discharge (Routine); Ordered 08/21/18 Ordered By: Janusz Torres - Discharge Details Anticipated Discharge Date: 08/24/18 - Physicians Team Primary Care Provider: Primary Care Physici,No Attending Provider: Candie Howell Other Providers: Janusz Torres MD ; Romario Zavala MD
[2018-08-24] MEDS: Senna/Docusate Sodium 8.6/50 MG Tablet PO SCH (09:28)
[2018-08-24] MEDS: Metoprolol Tartrate 25 MG Tablet PO SCH (09:28)
[2018-08-24 09:48] VITALS: BP 169/87; PULSE 102; RESP 18; TEMP 97.8; O2SAT 99
== END 2018-08-24 11:19 | disposition home health service (06) ==
LOC: NEDA 17:21 → NEPD 17:21 → NEPFCDU 21:38 → NEDH 08-24 09:55 → NEPFCDU 08-24 09:56
PROVIDERS: ADMIT Hospitalist; ATTEND Hospitalist